=== PATIENT | female | born 1975 | race Caucasian/White ===

== ENCOUNTER 2017-04-24 09:49 | Outpatient (RCR) | payer MEDICAID, SELFPAY ==
[2017-04-24 10:06] VITALS: BP 112/77; PULSE 87; RESP 18; TEMP 36.6; BMI 76.8
--- NOTE | 2017-04-24 19:46 | PCM.WC.PN ---
Type of Wound Date of Service: 04/24/17 Chief Complaint: Open surgical hidradenitis wound left inguinal, pubic, and perineal area. History of Wound: Surgery 04/04/17 - Surgical preparation left inguinal, pubic, and perineal area with excision hidradenitis (250 cm2). Wound care - Silver. Operative culture - Staphylococcus lugdunensis. She was discharged on Doxycycline. Prealbumin on 04/05/17 was 18.2. Encourage nutritional supplementation with protein to help the healing process. Today the patient denies fever. Her appetite is good. Progress of Wound: Improved. - Physical Exam Vital Signs Temp Pulse Resp BP 97.9 F 87 18 112/77 04/24/17 10:06 04/24/17 10:06 04/24/17 10:06 04/24/17 10:06 Debridement Note Post-Debridement Measurements/Treatment WC - Nurse 2 - General Ulcer CM Notes Start: 04/24/17 10:05 Freq: Status: Active Protocol: Activity Type Activity Date Activity User E-Sign Co-Sign Detail Recorded Client Recorded Date Recorded By Document 04/24/17 11:08 [id number] 04/24/17 11:09 04/24/17 11:08 Wound Center Nurse 2 #1 L Groin/Periarea -Time 11:08 -Correct Patient Yes -Correct Side, Site, Position Yes -Correct Procedure Yes -Procedure Performed Yes -Type of Procedure Debridement -Clinical Debridement Subcutaneous -Post Debridement Size (cm) - Length 22.5 -Post Debridement Size (cm) - Width 5.1 -Post Debridement Size (cm) - Depth 0.8 -Total Square Cm 114.75 -Wound/Ulcer Outcome Not Healed -Ulcer Cleansing Rinsed/ Irrigated with Saline -Foul Odor after Cleansing No -Bioengineered Tissue No -Cetacaine [place] No -Bleeding Controlled with Pressure -Treatment Response Procedure Tolerated Well Pain Scale: 0-10 Numeric Is Patient Pain Free? Yes Wound debrided: #1 Left inguinal, pubic, and perineal area. Laterality: Left Wound Grade/Stage: 2. Type of Debridement: Excisional debridement Anesthesia Used: 4% Lidocaine Solution Depth: Down to and including healthy tissue, in the subcutaneous layer Percentage of wound debrided: 100 Instrument Used: 5mm curette Tissue Removed: subcutaneous tissue. Severity: Fat Layer Exposed Amount of bleeding with debridement: Mild Bleeding Controlled with: Pressure Patient tolerated procedure well Assessment/Plan Assessment: 1. Bilateral inguinal hidradenitis, left worse than the right. 2. Left perineal hidradenitis. 3. Pubic area hidradenitis. 4. Open surgical hidradenitis wound left inguinal, pubic, and perineal area. 5. Smoker. 6. s/p surgical preparation left inguinal, pubic, and perineal area with excision hidradenitis (250 cm2). Plan: Continue Silver dressing changes daily. Operative culture showed Staphylococcus lugdunensis. She was discharged on Doxycycline and will continue them. Prealbumin on 04/05/17 was 18.2. Encourage nutritional supplementation with protein to help the healing process. Renewed her Percocet for pain (40 tabs). Followup 3 weeks. Encouraged the patient to stop smoking as it may have deleterious effects on wound healing.
--- NOTE | 2017-04-27 21:47 | PN.PCM_ITS ---
Type of Wound Date of Service: 04/24/17 Chief Complaint: Open surgical hidradenitis wound left inguinal, pubic, and perineal area. History of Wound: Surgery 04/04/17 - Surgical preparation left inguinal, pubic, and perineal area with excision hidradenitis (250 cm2). Wound care - Silver. Operative culture - Staphylococcus lugdunensis. She was discharged on Doxycycline. Prealbumin on 04/05/17 was 18.2. Encourage nutritional supplementation with protein to help the healing process. Today the patient denies fever. Her appetite is good. Progress of Wound: Improved. - Physical Exam Vital Signs Temp Pulse Resp BP 97.9 F 87 18 112/77 04/24/17 10:06 04/24/17 10:06 04/24/17 10:06 04/24/17 10:06 Debridement Note Post-Debridement Measurements/Treatment WC - Nurse 2 - General Ulcer CM Notes Start: 04/24/17 10:05 Freq: Status: Active Protocol: Activity Type Activity Date Activity User E-Sign Co-Sign Detail Recorded Client Recorded Date Recorded By Document 04/24/17 11:08 [id number] 04/24/17 11:09 04/24/17 11:08 Wound Center Nurse 2 #1 L Groin/Periarea -Time 11:08 -Correct Patient Yes -Correct Side, Site, Position Yes -Correct Procedure Yes -Procedure Performed Yes -Type of Procedure Debridement -Clinical Debridement Subcutaneous -Post Debridement Size (cm) - Length 22.5 -Post Debridement Size (cm) - Width 5.1 -Post Debridement Size (cm) - Depth 0.8 -Total Square Cm 114.75 -Wound/Ulcer Outcome Not Healed -Ulcer Cleansing Rinsed/ Irrigated with Saline -Foul Odor after Cleansing No -Bioengineered Tissue No -Cetacaine [place] No -Bleeding Controlled with Pressure -Treatment Response Procedure Tolerated Well Pain Scale: 0-10 Numeric Is Patient Pain Free? Yes Wound debrided: #1 Left inguinal, pubic, and perineal area. Laterality: Left Wound Grade/Stage: 2. Type of Debridement: Excisional debridement Anesthesia Used: 4% Lidocaine Solution Depth: Down to and including healthy tissue, in the subcutaneous layer Percentage of wound debrided: 100 Instrument Used: 5mm curette Tissue Removed: subcutaneous tissue. Severity: Fat Layer Exposed Amount of bleeding with debridement: Mild Bleeding Controlled with: Pressure Patient tolerated procedure well Assessment/Plan Assessment: 1. Bilateral inguinal hidradenitis, left worse than the right. 2. Left perineal hidradenitis. 3. Pubic area hidradenitis. 4. Open surgical hidradenitis wound left inguinal, pubic, and perineal area. 5. Smoker. 6. s/ p surgical preparation left inguinal, pubic, and perineal area with excision hidradenitis (250 cm2). Plan: Continue Silver dressing changes daily. Operative culture showed Staphylococcus lugdunensis. She was discharged on Doxycycline and will continue them. Prealbumin on 04/05/17 was 18.2. Encourage nutritional supplementation with protein to help the healing process. Renewed her Percocet for pain (40 tabs). Followup 3 weeks. Encouraged the patient to stop smoking as it may have deleterious effects on wound healing.
== END 2017-04-26 23:59 ==
LOC: WC 09:49
PROVIDERS: Family Provider Internal Medicine; Visit Provider Surgery
DX: L73.2 Hidradenitis suppurativa (principal); F17.200 Nicotine dependence, unspecified, uncomplicated; S31.104A Unspecified open wound of abdominal wall, left lower quadrant without penetration into peritoneal cavity, initial encounter; Y83.8 Other surgical procedures as the cause of abnormal reaction of the patient, or of later complication, without mention of misadventure at the time of the procedure
CPT/HCPCS: 11042; 11045; 99213; G0463

== ENCOUNTER 2017-05-15 10:11 | Outpatient (RCR) | payer MEDICAID, SELFPAY ==
[2017-04-24 10:06] VITALS: BP 112/77
[2017-04-27 01:06] VITALS: PULSE 87; RESP 18; TEMP 36.6
[2017-05-15 10:59] VITALS: BP 121/85; PULSE 82; RESP 20; TEMP 36.6; BMI 76.8
--- NOTE | 2017-05-15 19:21 | PN.PCM_ITS ---
Type of Wound Date of Service: 05/15/17 Chief Complaint: Nonhealing hidradenitis ulcer left inguinal, pubic, and perineal area. History of Wound: Surgery 04/04/17 - Surgical preparation left inguinal, pubic, and perineal area with excision hidradenitis (250 cm2). Wound care - Silver. Operative culture - Staphylococcus lugdunensis. She was discharged on Doxycycline. Prealbumin on 04/05/17 was 18.2. Encourage nutritional supplementation with protein to help the healing process. Today the patient denies fever. Her appetite is good. Progress of Wound: Improved. - Physical Exam Vital Signs Temp Pulse Resp BP 97.8 F 82 20 H 121/85 H 05/15/17 10:59 05/15/17 10:59 05/15/17 10:59 05/15/17 10:59 Wound Measurements and Assessment WC - Nurse 1 - General Ulcer Measurement Start: 05/15/17 10:57 Freq: Status: Active Protocol: Activity Type Activity Date Activity User E-Sign Co-Sign Detail Recorded Client Recorded Date Recorded By Document 05/15/17 10:59 DL [id number] 05/15/17 11:08 DL 05/15/17 10:59 Wound Center Nurse 1 [Ulcer Assessment] #1 L Groin/Periarea -Current Size (cm) - Length 18 -Current Size (cm) - Width 2.1 -Current Size (cm) - Depth 0.1 -Total Square Cm 37.8 -Photo Taken No -Epithelialization Large 67-100% -Exudate Amt Small (1-33%) -Exudate Type Serosanguineous -Wound Margin Distinct, Outline Attached -Granulation Amt Large (67-100%) -Granulation Quality [place] Red -Necrosis Amt Small (1-33%) -Necrotic Tissue Type Adherent Slough -Structure Exposed N/A -Texture (Eulalia-wound Skin Appearance) Scarring -Moisture (Eulalia-wound Skin Appearance No Abnormality ) -Color (Eulalia-wound Skin Appearance) No Abnormality -Temperature (Eulalia-wound Skin No Abnormality Appearance) (Pt Warm) -Tenderness on Palpation (Eulalia-wound No Skin Appearance) -Ulcer Cleansing Wound Cleanser -Foul Odor after Cleansing No -Anesthetic Used 4% Lidocaine Solution WC - Nurse 2 - General Ulcer CM Notes Start: 05/15/17 10:57 Freq: Status: Active Protocol: Activity Type Activity Date Activity User E-Sign Co-Sign Detail Recorded Client Recorded Date Recorded By Document 05/15/17 11:15 [id number] 05/15/17 11:16 05/15/17 11:15 Wound Center Nurse 2 [Procedure/Treatment] -Time 11:16 -Correct Patient Yes -Correct Side, Site, Position Yes -Correct Procedure Yes -Procedure Performed Yes -Type of Procedure Debridement -Clinical Debridement Subcutaneous -Post Debridement Size (cm) - Length 18.2 -Post Debridement Size (cm) - Width 2.2 -Post Debridement Size (cm) - Depth 0.1 -Total Square Cm 40.04 -Wound/Ulcer Outcome Not Healed -Ulcer Cleansing Rinsed/ Irrigated with Saline -Foul Odor after Cleansing No -Bioengineered Tissue No -Bleeding Controlled with Pressure -Treatment Response Procedure Tolerated Well [See Physician Procedure note for Specifics] Pain Scale: 0-10 Numeric [Pain] -Is Patient Pain Free? Yes Debridement Note Post-Debridement Measurements/Treatment WC - Nurse 2 - General Ulcer CM Notes Start: 05/15/17 10:57 Freq: Status: Active Protocol: Activity Type Activity Date Activity User E-Sign Co-Sign Detail Recorded Client Recorded Date Recorded By Document 05/15/17 11:15 [id number] 05/15/17 11:16 05/15/17 11:15 Wound Center Nurse 2 #1 L Groin/Periarea -Time 11:16 -Correct Patient Yes -Correct Side, Site, Position Yes -Correct Procedure Yes -Procedure Performed Yes -Type of Procedure Debridement -Clinical Debridement Subcutaneous -Post Debridement Size (cm) - Length 18.2 -Post Debridement Size (cm) - Width 2.2 -Post Debridement Size (cm) - Depth 0.1 -Total Square Cm 40.04 -Wound/Ulcer Outcome Not Healed -Ulcer Cleansing Rinsed/ Irrigated with Saline -Foul Odor after Cleansing No -Bioengineered Tissue No -Bleeding Controlled with Pressure -Treatment Response Procedure Tolerated Well Pain Scale: 0-10 Numeric Is Patient Pain Free? Yes Wound debrided: #1 Left inguinal, pubic, and perineal area. Laterality: Left Wound Grade/Stage: 2. Type of Debridement: Excisional debridement Anesthesia Used: 4% Lidocaine Solution Depth: Down to and including healthy tissue, in the subcutaneous layer Percentage of wound debrided: 100 Instrument Used: 5mm curette Tissue Removed: subcutaneous tissue. Severity: Fat Layer Exposed Amount of bleeding with debridement: Mild Bleeding Controlled with: Pressure Patient tolerated procedure well Assessment/Plan Assessment: 1. Bilateral inguinal hidradenitis, left worse than the right. 2. Left perineal hidradenitis. 3. Pubic area hidradenitis. 4. Nonhealing hidradenitis ulcer left inguinal, pubic, and perineal area. 5. Smoker. 6. s/ p surgical preparation left inguinal, pubic, and perineal area with excision hidradenitis (250 cm2). Plan: Continue Silver dressing changes daily. Operative culture showed Staphylococcus lugdunensis. She was discharged on Doxycycline and will continue them. Prealbumin on 04/05/17 was 18.2. Encourage nutritional supplementation with protein to help the healing process. Renewed her Percocet for pain, one tab (30 tabs). Followup 3 weeks. Encouraged the patient to stop smoking as it may have deleterious effects on wound healing.
== END 2017-05-24 23:59 ==
LOC: WC 10:11
PROVIDERS: Family Provider Internal Medicine; Visit Provider Surgery
DX: L73.2 Hidradenitis suppurativa (principal); F17.200 Nicotine dependence, unspecified, uncomplicated; L98.492 Non-pressure chronic ulcer of skin of other sites with fat layer exposed
CPT/HCPCS: 11042; 11045

== ENCOUNTER 2017-06-06 11:46 | Outpatient (RCR) | payer MEDICAID, SELFPAY ==
[2017-05-25 00:51] VITALS: BP 112/77; PULSE 82; RESP 20; TEMP 36.6; BMI 76.8
[2017-06-06 15:14] VITALS: BP 145/87; PULSE 84; RESP 18; TEMP 36.7; BMI 76.8
--- NOTE | 2017-06-06 22:15 | PN.PCM_ITS ---
Type of Wound Date of Service: 06/06/17 Chief Complaint: Nonhealing hidradenitis ulcer left inguinal, pubic, and perineal area. History of Wound: Surgery 04/04/17 - Surgical preparation left inguinal, pubic, and perineal area with excision hidradenitis (250 cm2). Wound care - Silver. Operative culture - Staphylococcus lugdunensis. She was discharged on Doxycycline and has finished them. Prealbumin on 04/05/17 was 18.2. Encourage nutritional supplementation with protein to help the healing process. Today the patient denies fever. Her appetite is good. She does complain of persistent soreness in the healing ulcer. Progress of Wound: Improved. - Physical Exam Vital Signs Temp Pulse Resp BP 98.0 F 84 18 145/87 H 06/06/17 15:14 06/06/17 15:14 06/06/17 15:14 06/06/17 15:14 Wound Measurements and Assessment WC - Nurse 1 - General Ulcer Measurement Start: 06/06/17 15:14 Freq: Status: Active Protocol: Activity Type Activity Date Activity User E-Sign Co-Sign Detail Recorded Client Recorded Date Recorded By Document 06/06/17 15:14 [id number] 06/06/17 15:16 TM 06/06/17 15:14 Wound Center Nurse 1 [Ulcer Assessment] #1 L Groin/Periarea -Combined with other wound No -Current Size (cm) - Length 2.8 -Current Size (cm) - Width 1.8 -Current Size (cm) - Depth 0.1 -Total Square Cm 5.04 -Date of Last Picture (Recall this 06/06/17 field) -Photo Taken Yes -Epithelialization Large 67-100% -Tunneling No -Undermining/Tunneling No -Circular Undermining No -Classification - Thickness Full Thickness without Exposed Support Structure -Exudate Amt Small (1-33%) -Exudate Type Serosanguineous -Wound Margin Distinct, Outline Attached -Granulation Amt Large (67-100%) -Granulation Quality Red -Slough/Fibrin Yes -Necrosis Amt Small (1-33%) -Necrotic Tissue Type Adherent Slough -Structure Exposed Fascia Fat Layer Exposed -Texture (Eul[place]-wound Skin Appearance) Scarring -Moisture ([place]-wound Skin Appearance No Abnormality ) -Color (Eulalia-wound Skin Appearance) Erythema -Temperature ([place]-wound Skin No Abnormality Appearance) (Pt Warm) -Tenderness on Palpation ([place]-wound No Skin Appearance) -Ulcer Cleansing Rinsed/ Irrigated with Saline -Foul Odor after Cleansing No -Anesthetic Used 5% Lidocaine Gel [Edema Assessment] -Lower Limb Edema Present No WC - Nurse 2 - General Ulcer CM Notes Start: 06/06/17 15:14 Freq: Status: Active Protocol: Activity Type Activity Date Activity User E-Sign Co-Sign Detail Recorded Client Recorded Date Recorded By Document 06/06/17 15:35 [id number] 06/06/17 15:36 06/06/17 15:35 Wound Center Nurse 2 [Procedure/Treatment] #1 L Groin/Periarea -Time 15:35 -Correct Patient Yes -Correct Side, Site, Position Yes -Correct Procedure Yes -Procedure Performed Yes -Type of Procedure Debridement -Clinical Debridement Subcutaneous -Post Debridement Size (cm) - Length 2.8 -Post Debridement Size (cm) - Width 1.9 -Post Debridement Size (cm) - Depth 0.1 -Total Square Cm 5.32 -Wound/Ulcer Outcome Not Healed -Ulcer Cleansing Rinsed/ Irrigated with Saline -Foul Odor after Cleansing No -Bioengineered Tissue No -Bleeding Controlled with Pressure -Treatment Response Procedure Tolerated Well [See Physician Procedure note for Specifics] Pain Scale: 0-10 Numeric [Pain] -Is Patient Pain Free? Yes Debridement Note Post-Debridement Measurements/Treatment WC - Nurse 2 - General Ulcer CM Notes Start: 06/06/17 15:14 Freq: Status: Active Protocol: Activity Type Activity Date Activity User E-Sign Co-Sign Detail Recorded Client Recorded Date Recorded By Document 06/06/17 15:35 [id number] 06/06/17 15:36 06/06/17 15:35 Wound Center Nurse 2 #1 L Groin/Periarea -Time 15:35 -Correct Patient Yes -Correct Side, Site, Position Yes -Correct Procedure Yes -Procedure Performed Yes -Type of Procedure Debridement -Clinical Debridement Subcutaneous -Post Debridement Size (cm) - Length 2.8 -Post Debridement Size (cm) - Width 1.9 -Post Debridement Size (cm) - Depth 0.1 -Total Square Cm 5.32 -Wound/Ulcer Outcome Not Healed -Ulcer Cleansing Rinsed/ Irrigated with Saline -Foul Odor after Cleansing No -Bioengineered Tissue No -Bleeding Controlled with Pressure -Treatment Response Procedure Tolerated Well Pain Scale: 0-10 Numeric Is Patient Pain Free? Yes Wound debrided: #1 Left inguinal, pubic, and perineal areas. Laterality: Left Wound Grade/Stage: 2. Type of Debridement: Excisional debridement Anesthesia Used: 4% Lidocaine Solution Depth: Down to and including healthy tissue, in the subcutaneous layer Percentage of wound debrided: 100 Instrument Used: 5mm curette Tissue Removed: subcutaneous tissue. Severity: Fat Layer Exposed Amount of bleeding with debridement: Mild Bleeding Controlled with: Pressure Patient tolerated procedure well Assessment/Plan Assessment: 1. Bilateral inguinal hidradenitis, left worse than the right. 2. Left perineal hidradenitis. 3. Pubic area hidradenitis. 4. Nonhealing hidradenitis ulcer left inguinal, pubic, and perineal area. 5. Smoker. 6. s/ p surgical preparation left inguinal, pubic, and perineal area with excision hidradenitis (250 cm2). Plan: Will stop the Silver dressing changes daily and change to Fibracol. Operative culture showed Staphylococcus lugdunensis. She was discharged on Doxycycline and has finished them. Prealbumin on 04/05/17 was 18.2. Encourage nutritional supplementation with protein to help the healing process. Followup 3 weeks. Encouraged the patient to stop smoking as it may have deleterious effects on wound healing. Because of her persistent soreness, recommended further operative debridement and skin grafting. She is interested and will schedule the surgery.
== END 2017-06-24 23:59 ==
LOC: WC 11:46
PROVIDERS: Family Provider Internal Medicine; Visit Provider Surgery
DX: L73.2 Hidradenitis suppurativa (principal); L98.492 Non-pressure chronic ulcer of skin of other sites with fat layer exposed; F17.200 Nicotine dependence, unspecified, uncomplicated
CPT/HCPCS: 11042

== ENCOUNTER 2017-06-26 08:24 | Outpatient (RCR) | payer MEDICAID, SELFPAY ==
[2017-06-25 00:44] VITALS: BP 112/77; PULSE 84; RESP 18; TEMP 36.7; BMI 76.8
[2017-06-26 10:40] VITALS: BP 112/70; PULSE 67; RESP 18; TEMP 36.6; BMI 76.8
--- NOTE | 2017-06-26 17:46 | PCM.WC.PN ---
Type of Wound Date of Service: 06/26/17 Chief Complaint: Nonhealing hidradenitis ulcer left inguinal, pubic, and perineal area. History of Wound: Surgery 04/04/17 - Surgical preparation left inguinal, pubic, and perineal area with excision hidradenitis (250 cm2). Wound care - Silver. Operative culture - Staphylococcus lugdunensis. She was discharged on Doxycycline and has finished them. Prealbumin on 04/05/17 was 18.2. Encourage nutritional supplementation with protein to help the healing process. Today the patient denies fever. Her appetite is good. She states her right inguinal and vulval area has been causing her some discomfort recently. Progress of Wound: Healed. - Physical Exam Vital Signs Temp Pulse Resp BP 97.9 F 67 18 112/70 06/26/17 10:40 06/26/17 10:40 06/26/17 10:40 06/26/17 10:40 General: Alert, Oriented x3 HEENT: PERRLA, EOMI Neck: Supple Lungs: Clear to auscultation Cardiovascular: Regular rate, Regular Rhythm Abdomen: Soft, Non-Distended, - - Patient has healed scar from recent excision hidradenitis left inguinal area, and mons pubis area, and left perineal area. Has recent flareup of right inguinal hidradenitis with scarring and pain. It measures 10 cm. There is induration and chronic scarring. No evidence of fluctuance or purulent drainage. Some tenderness to palpation. Patient also has hidradenitis in the right vulval area involving the mons pubis and genitocrural area. Measures 6 cm. Has some redness and induration and tenderness to palpation. No purulent drainage. No fluctuance. Wound Measurements and Assessment WC - Nurse 1 - General Ulcer Measurement Start: 06/26/17 10:40 Freq: Status: Active Protocol: Activity Type Activity Date Activity User E-Sign Co-Sign Detail Recorded Client Recorded Date Recorded By Document 06/26/17 10:40 DL [id number] 06/26/17 10:49 DL 06/26/17 10:40 Wound Center Nurse 1 [Ulcer Assessment] #1 L Groin/Periarea -Current Size (cm) - Length 0 -Current Size (cm) - Width 0 -Current Size (cm) - Depth 0 -Total Square Cm 0 -Photo Taken Yes -Exudate Amt None Present (0 %) -Wound Margin Flat & Intact -Granulation Amt Large (67-100%) -Granulation Quality [place] -Necrosis Amt None Present (0 %) -Structure Exposed N/A -Texture ([place]ul[place]-wound Skin Appearance) Scarring -Moisture ([place]-wound Skin Appearance No Abnormality ) -Color (Eulalia-wound Skin Appearance) No Abnormality -Temperature ([place]-wound Skin No Abnormality Appearance) (Pt Warm) -Ulcer Cleansing Rinsed/ Irrigated with Saline -Foul Odor after Cleansing No WC - Nurse 2 - General Ulcer CM Notes Start: 06/26/17 10:40 Freq: Status: Active Protocol: Activity Type Activity Date Activity User E-Sign Co-Sign Detail Recorded Client Recorded Date Recorded By Document 06/26/17 11:07 [id number] 06/26/17 11:08 06/26/17 11:07 Pain Scale: 0-10 Numeric [Pain] -Is Patient Pain Free? Yes Neurological: Cranial nerves II-XII grossly intact Psych/Mental Status: Normal Affect, Appropriate Debridement Note Post-Debridement Measurements/Treatment WC - Nurse 2 - General Ulcer CM Notes Start: 06/26/17 10:40 Freq: Status: Active Protocol: Activity Type Activity Date Activity User E-Sign Co-Sign Detail Recorded Client Recorded Date Recorded By Document 06/26/17 11:07 [id number] 06/26/17 11:08 06/26/17 11:07 Pain Scale: 0-10 Numeric Is Patient Pain Free? Yes Wound debrided: #1 Left inguinal, pubic, and perineal areas. Laterality: Left Wound Grade/Stage: 2. No debridement was completed today - The ulcer has healed. Assessment/Plan Assessment: 1. Bilateral inguinal hidradenitis, left worse than the right. 2. Left perineal hidradenitis. 3. Pubic area hidradenitis. 4. Hidradenitis ulcer left inguinal, pubic, and perineal area, healed. 5. Smoker. 6. s/p surgical preparation left inguinal, pubic, and perineal area with excision hidradenitis (250 cm2). Plan: The left inguinal, pubic, and perineal ulcer has healed. She would like to proceed with surgery on the right inguinal and vulval area. She was scheduled for debridement and skin grafting for the left ulcer next week. Now that the ulcer has healed, we can still keep that date and switch the procedure to the right side. She states the right side has caused her some intermittent discomfort recently. She would like to proceed with the surgery before an acute flareup develops. However she is not sure if she wants to do it next week or wait a couple of months. She will call my office and let us know later in the week regarding possible surgery for next week. Surgery would be done under general anesthesia with a surgical observation overnight stay in the hospital. Prealbumin on 04/05/17 was 18.2. Encourage nutritional supplementation with protein to help the healing process. She states she has antibiotics for flareups in case she decides to hold off on surgery next week. Followup on an as needed basis unless she proceeds with the surgery in which case she will followup after her surgery. Encouraged the patient to stop smoking as it may have deleterious effects on wound healing.
== END 2017-07-24 23:59 ==
LOC: WC 08:24
PROVIDERS: Family Provider Internal Medicine; PCP Internal Medicine; Visit Provider Surgery
DX: Z09 Encounter for follow-up examination after completed treatment for conditions other than malignant neoplasm (principal); F17.200 Nicotine dependence, unspecified, uncomplicated; L73.2 Hidradenitis suppurativa
CPT/HCPCS: 99212; G0463

== ENCOUNTER 2017-07-04 06:21 | Day surgery (SDC) | payer MEDICAID, SELFPAY ==
--- NOTE | 2017-07-03 21:40 | PCM.HP.BLA ---
History and Physical Date of Admission: 07/04/17 HISTORY OF PRESENT ILLNESS 42-year-old woman who initially presented with long-standing history of hidradenitis involving bilateral inguinal area, pubic area and left perineal area. When she will get an attack she would just apply warm compresses until drainage occurred. She would occasionally take antibiotics. She denies any fever. Denies any trauma. She had recent surgery on 04/04/17 where she underwent surgical preparation left inguinal, pubic, and perineal area with excision hidradenitis (250 cm2). Denies any recent drainage. She presents at this time for further evaluation and treatment regarding her right inguinal and medial thigh hidradenitis with extension into the mons pubis and genitocrural area. PAST MEDICAL HISTORY Allergies Back Problems Breast Lump/Cyst anxiety headaches inguinal hidradenitis vulval hidradenitis involving mons pubic and genitocrural area PAST SURGICAL HISTORY Surgical preparation left inguinal, pubic, and perineal area with excision hidradenitis (250 cm2) - 04/04/17 FAMILY HISTORY negative for skin cancer. positive for breast cancer. Mother (biol.) - Has Family History of Alcoholism Mother (biol.) - Has Family History of Anxiety Mother (biol.) - Has Family History of Defects Mother (biol.) - Has Family History of Breast Cancer Aunt - Has Family History of Cervical Cancer Aunt - Has Family History of Ovarian Cancer SOCIAL HISTORY Passive smoke exposure - yes Alcohol Use - yes Drug Use - no patient smokes. MEDICATIONS Ibuprofen as needed ALLERGIES None REVIEW OF SYSTEMS General-denies fever, and weight loss. Has some fatigue. Ear nose and throat-denies nasal congestion. Denies sore throat. Eyes-denies cataracts. Denies glaucoma. Endocrine-has excessive thirst and urination. Has heat and cold intolerance. Skin-has long-standing hidradenitis in her right inguinal and medial thigh area and vulval area involving the pubic area and genitocrural area. Had recent excision hidradenitis in the left inguinal area and mons pubis area and left perineal area on 04/04/17. Muscular skeletal-has joint pain, joint stiffness, weakness of muscles and joints, back pain. Denies arthritis. Neurologic has headaches. Cardiovascular-has some chest pain. Has some fatigue. Denies shortness of breath with exertion. Psychiatric-has some anxiety. Denies depression. Respiratory-denies chronic cough. Has shortness of breath. Patient is a smoker. Gastrointestinal-denies nausea and vomiting. Has some diarrhea and constipation. Hematologic-denies abnormal bruising and bleeding. Genitourinary-denies hematuria. Has urinary frequency. PHYSICAL EXAMINATION General-well developed, well nourished, in no acute distress. HEENT-pupils equal round and reactive to light. Extraocular muscles intact. Throat is clear. Neck-supple nontender. No cervical adenopathy. Lungs-clear to auscultation. Heart-regular rate and rhythm. Abdomen-soft and nondistended. Patient has healed scar from recent excision hidradenitis left inguinal area, and mons pubis area, and left perineal area. Has recent flareup of right inguinal and medial thigh hidradenitis with scarring and pain. It measures 10 cm. There is induration and chronic scarring. No evidence of fluctuance or purulent drainage. Some tenderness to palpation. Patient also has hidradenitis in the right vulval area involving the mons pubis and genitocrural area. Measures 6 cm. Has some redness and induration and tenderness to palpation. No purulent drainage. No fluctuance. Extremities-full range of motion. No axillary adenopathy. Unable to assess inguinal adenopathy secondary to her bilateral inguinal hidradenitis. Neuro--cranial nerves II through XII grossly intact. Psych-normal mood and affect. ASSESSMENT 1. Right inguinal and medial thigh hidradenitis. 2. Right vulval hidradenitis involving the mons pubis and genitocrural area. 3. s/p excision hidradenitis left inguinal area, mons pubis, and perineal area. 4. Smoker. PLAN Her left inguinal and mons pubis area hidradenitis wound has healed. She states the right side is painful and she wants to proceed with excision of right inguinal and medial thigh hidradenitis and right vulval hidradenitis involving the mons pubis and genitocrural area. We will extend the excision usually down to the muscle if necessary. We will send the specimen to pathology for analysis to rule out carcinoma. Also sent some tissue to microbiology for culture. If the cultures are positive then patient will need antibiotic therapy post discharge. Depending on the extent of the excision, sometimes I have the patient go home with a Hernandez catheter. Initially we leave the wound open and proceed with postoperative wound care with the VAC or with daily dressing changes with a silver type dressing. Post discharge she will follow-up at the wound center. Surgery would be done under general anesthesia with a surgical observation overnight stay. The patient was informed of the risks and complications of the procedure including alternatives to surgery. These were discussed with the patient personally. The patient voices understanding and wishes to proceed. Encouraged the patient to stop smoking as it may have deleterious effects on wound healing.
[2017-07-04] VITALS (11 sets, daily range): BP systolic 90–123; BP diastolic 54–106; PULSE 45–86; RESP 14–18; TEMP 35.9–36.7; O2SAT 90–98; BMI 34.0
--- NOTE | 2017-07-04 08:00 | HID_PTH ---
PATIENT: ИВАН DE LA VEGA LOC: [facility] [place] U#:[id number] AGE/SX: 42/F ROOM: RE07/04/[address]: Dr. Zacarias Patel MD : 1975 BED: DIS: 07/05/2017 SPEC #: [id number] RECD: 07/04/17 10:56 STATUS: ENRRIQUE CARIE #: [id number] JESSA: 07/04/17 08:[address]: Zacarias Patel DEPT: SURGICAL PATHOLOGY RECD BY: Mariah Hardwick ENTERED: 07/04/17 12:39 SP TYPE: Hidradenit MAGUI DR: Dr. Tiki Allison MD Tissues: Vulva, NOS Procedures: Surgery Specimen Level III HEADER OPERATION: Excision, hidradenitis, right inguinal area PRE-OP DIAGNOSIS: Right inguinal and vulvar hidradenitis TISSUE SUBMITTED: Hidradenitis right groin and vulva MICROSCOPIC DIAGNOSIS Skin and soft tissue of groin and vulva, excision: Consistent with hidradenitis. AM:lara 07/05/17 MICROSCOPIC DESCRIPTION Slides are reviewed. GROSS DESCRIPTION Received in fixative is one container labeled with the patient's name and designated right groin and vulvar hidradenitis. The specimen consists of an irregular fragment of pink-miles skin measuring 22 x 7 cm and excised to a depth of 3 cm. No cutaneous lesions are identified. Sections reveal homogenous yellow cut surfaces. No mass lesion is identified. Dishtank Operator sections are submitted in three cassettes. / AM:lara 07/04/17 TC:3 CPT: 07140
[2017-07-04] MEDS: Cefazolin 2 GM in 0.9% Normal Saline 100 ML IV (08:30)
--- NOTE | 2017-07-04 09:11 | OP.PN_ITS ---
Immediate Post-Op Note Date of Procedure: 07/04/17 Primary Surgeon/Physician: Zacarias Patel instructional services specialist: None Pre-Operative Diagnosis: 1. Right inguinal and medial thigh hidradenitis. 2. Right vulval hidradenitis involving the mons pubis and genitocrural area. 3. s /p excision hidradenitis left inguinal area, mons pubis, and perineal area. 4. Smoker. Post-Operative Diagnosis: Same. Surgery/Procedure Performed:: 1. Surgical preparation right inguinal area and medial thigh area with excision hidradenitis (345 cm2). 2. Excision hidradenitis right vulval area (involving mons pubis and genitocrural area) with partial vulvectomy including deep subcutaneous tissue. Description of Surgical Findings:: 42-year-old woman who initially presented with long-standing history of hidradenitis involving bilateral inguinal area, pubic area and left perineal area. When she will get an attack she would just apply warm compresses until drainage occurred. She would occasionally take antibiotics. She denies any fever. Denies any trauma. She had recent surgery on 04/04/17 where she underwent surgical preparation left inguinal, pubic, and perineal area with excision hidradenitis (250 cm2). Denies any recent drainage. She presents at this time for further evaluation and treatment regarding her right inguinal and medial thigh hidradenitis with extension into the mons pubis and genitocrural area. Today the patient underwent surgical preparation right inguinal area and medial thigh area with excision hidradenitis (345 cm2) and excision hidradenitis right vulval area (involving mons pubis and genitocrural area) with partial vulvectomy including deep subcutaneous tissue. Size of defect right inguinal and medial thigh and vulval area - 23 x 15 x 3 cm. Estimated Blood Loss: 25 ml. Specimen's removed: Right inguinal and medial thigh and vulval hidradenitis to Pathology and Microbiology. Drains: None. Type of Anesthesia:: General - Admit VTE Documentation VTE Present on Admission: No VTE Mechan Device Prophylaxis: SCD's VTE Pharm Prophylaxis ordered?: No
[2017-07-04] MEDS: Fluconazole 100 MG Tablet PO (11:10)
[2017-07-04] MEDS: Docusate Sodium 100 MG Capsule PO ×2 (11:10→21:24)
[2017-07-04] MEDS: Lactated Ringers 1,000 ML 60 ML IV ×2 (11:10→17:42)
[2017-07-04] MEDS: Cefazolin 1 GM/50 ML BAG IV ×2 (14:07→21:24)
[2017-07-04] MEDS: HYDROmorphone 1 MG/ML Syringe IV (15:23)
[2017-07-04] MEDS: Ondansetron 4 MG/2 ML Vial IV (15:23)
[2017-07-04] MEDS: oxyCODONE 5 MG Tablet 10 MG PO (20:17)
--- NOTE | 2017-07-04 20:41 | OP.PCM_ITS ---
Report of Operation Pre-Operative Diagnosis: 1. Right inguinal and medial thigh hidradenitis. 2. Right vulval hidradenitis involving the mons pubis and genitocrural area. 3. s /p excision hidradenitis left inguinal area, mons pubis, and perineal area. 4. Smoker. Post-Operative Diagnosis: Same. Surgery/Procedure Performed:: 1. Surgical preparation right inguinal area and medial thigh area with excision hidradenitis (345 cm2). 2. Excision hidradenitis right vulval area (involving mons pubis and genitocrural area) with partial vulvectomy including deep subcutaneous tissue. Description of Surgical Findings:: 42-year-old woman who initially presented with long-standing history of hidradenitis involving bilateral inguinal area, pubic area and left perineal area. When she will get an attack she would just apply warm compresses until drainage occurred. She would occasionally take antibiotics. She denies any fever. Denies any trauma. She had recent surgery on 04/04/17 where she underwent surgical preparation left inguinal, pubic, and perineal area with excision hidradenitis (250 cm2). Denies any recent drainage. She presents at this time for further evaluation and treatment regarding her right inguinal and medial thigh hidradenitis with extension into the mons pubis and genitocrural area. The patient was informed of the risks and complications of the procedure including alternatives to surgery. These were discussed with the patient personally. The patient voices understanding and wishes to proceed. Encouraged the patient to stop smoking as it may have deleterious effects on wound healing. Size of defect right inguinal and medial thigh and vulval area - 23 x 15 x 3 cm. 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 Drains: None. Estimated Blood Loss (mL): 25 ml. Description of Procedure: Patient was taken to OR in supine position and was placed under general anesthesia. Her right inguinal and medial thigh and vulval areas were prepped and draped in the usual fashion. SCD's were placed for DVT prophylaxis. Perioperative antibiotics were given intravenously. The area of hidradenitis was marked out in the right inguinal area with extension onto the medial thigh area and into the vulval area including the mons pubis and the genitocrural area. Incision was made with a scalpel down through the subcutaneous tissue until the underlying muscular fascia was seen. There was fat necrosis present and indurated scarring indicative of chronic infection. No acute pus was noted. The mons pubis and genitocrural areas were involved with fat necrosis and indurated scarring. The right inguinal and medial thigh hidradenitis was excised. The right vulval hidradenitis was also excised from the mons pubis and the genitocrural areas with a partial vulvectomy. Hemostasis was obtained with electrocautery. The wound was irrigated with saline. Both excisions were combined into one larger wound. The dimensions of the wound after excision was 23 x 15 x 3 cm. Tissue was sent to Pathology for analysis to rule out carcinoma. Tissue was also sent to Microbiology for culture. A positive culture will necessitate antibiotic therapy. The wound was then packed with Mepitel nonadherent dressing followed by Kerlix gauze with Betadine followed by dry Kerlix gauze and ABD pads. Patient tolerated the procedure well and was sent to PACU in satisfactory condition. She will be sent upstairs for surgical observation overnight stay in the hospital. She doesn't want the VAC placed tomorrow so will change the dressing with Aquacel Silver. When she is tolerating po analgesia, then she will be discharged home. She will followup at the Wound Center. She will be sent home on antibiotics and pain medication. Grafts/Implants Used: None. - Complications None. - Admit VTE Documentation VTE Present on Admission: No VTE Mechan Device Prophylaxis: SCD's VTE Pharm Prophylaxis ordered?: No Code Visit Surgery Charges CPT - 02686 ICD-10 - L73.2, S31.103A, S31.40xA, F17.200 20631 L73.2, S31.40xA, S31.103A, F17.200
[2017-07-05 03:00] VITALS: BP 95/53; PULSE 51; RESP 16; TEMP 36.8; O2SAT 95
[2017-07-05] MEDS: Cefazolin 1 GM/50 ML BAG IV (06:23)
[2017-07-05] MEDS: HYDROmorphone 1 MG/ML Syringe IV ×2 (06:28→09:54)
[2017-07-05] MEDS: Ondansetron 4 MG/2 ML Vial IV (06:35)
[2017-07-05 07:04] LABS: Hematocrit 37.8 % (37-47); Hemoglobin 12.3 g/dl (12.0-15.0); Mean Corp Hgb Conc 32.5 g/gl (32-36); Mean Corpuscular Hgb 29.8 pg (27.0-32.0); Mean Corpuscular Volume 91.5 fL (81-99); Mean Platelet Vol. 12.3 fl (6.2-12.0); Platelet Count 161 K/mm3 (150-450); RBC Distribution Width CV 12.8 % (11.6-14.6); RBC Distribution Width SD 42.2 fl (35.1-43.9); Red Blood Count 4.13 M/mm3 (4.2-5.4); White Blood Count 14.3 K/mm3 (4.4-11.0)
[2017-07-05 07:07] LABS: Scan Indicated on CBC? Y/N NO
[2017-07-05 07:33] LABS: Anion Gap 6 (5-15); BUN 15 mg/dL (7-18); BUN/Creat Ratio 17.7 RATIO (10-20); Calcium,Total 8.5 mg/dL (8.5-10.1); Chloride 111 mmol/L (98-107); Creatinine, Serum 0.85 mg/dL (0.55-1.02); EST Glomerular Filtration Rate 78 mL/min (>60); Est Glom Filt Rate - Afr Amer 94 mL/min (>60); Estimated Creatinine Clearance 73.69 ml/min; Glucose 118 mg/dL (74-106); Potassium 4.9 mmol/L (3.5-5.1); Prealbumin 17.6 mg/dL (20.0-40.0); Sodium Level 142 mmol/L (136-145)
[2017-07-05] MEDS: Docusate Sodium 100 MG Capsule PO (08:35)
[2017-07-05] MEDS: Fluconazole 100 MG Tablet PO (08:35)
[2017-07-05 09:00] VITALS: BP 104/69; PULSE 62; RESP 16; TEMP 36.4; O2SAT 95
--- NOTE | 2017-07-05 10:07 | CASEMGMT ---
Referral received for Home Health. Per [facility] website, [facility]. Call to Kim @ [facility] . they can take pt with start of care Th18 (if dc'd today). RN will come 2x week and pt will need to have someone learn and change dressings alternate days. -Intro role of CM with pt. She is agreeable to [facility] through [facility]. RN CM notified pt that she will need to have someone learn dressing change to be done 5x week. [facility] RN will assist with teaching and change dressing 2x week. Alternate plan would be for pt to go to Dr. Patel's office/wound center. Pt will have daughter assist with dressing changes. -Seferino RN, Sudha general superintendent nurse updated re: dc plan and pt will need script for supplies on discharge. Lance CHIRINOS RN ACM
--- NOTE | 2017-07-05 10:56 | NURSING ---
wound photo: right groin
--- NOTE | 2017-07-05 13:25 | PN.SURG_ITS ---
Subjective: Postop #1 Patient is resting comfortably. - Physical Exam General: Alert, Oriented x3 HEENT: PERRLA, EOMI Neck: Supple Lungs: Clear to auscultation Cardiovascular: Regular rate, Regular Rhythm Abdomen: Soft, Non-Distended Skin: Ulcer/ Wound - right inguinal and medial thigh and vulval wounds are stable. No bleeding seen. Dressed with Aquacel Silver to be done daily. Neurological: Cranial nerves II-XII grossly intact Psych/Mental Status: Normal Affect, Appropriate Vital Signs Temp Pulse Resp BP Pulse Ox 97.6 F L 62 16 104/69 95 07/05/17 09:00 07/05/17 09:00 07/05/17 09:00 07/05/17 09:00 07/05/17 09:00 Oxygen Flow Rate (L/min) 2 Oxygen Delivery Method Room Air Weight: 198 lb 3.129 oz Body Mass Index (BMI) 34.0 Intake and Output for Last 24 Hours 07/03/17 07/04/17 07/05/17 23:59 23:59 23:59 Intake Total 2299 / 2299 1475 / 1475 Balance 2299 / 2299 1475 / 1475 Microbiology Past 72 Hours 07/04/17 09:43 Gram Stain - Final Tissue - Groin Wound Culture - Preliminary No growth-Final to follow Laboratory Tests Past 24 Hrs 07/05/17 07/05/17 06:45 06:45 WBC 14.3 H RBC 4.13 L Hgb 12.3 Hct 37.8 MCV 91.5 MCH 29.8 MCHC 32.5 RDW 12.8 RDW Differential 42.2 Plt Count 161 MPV 12.3 H Sodium 142 Potassium 4.9 Chloride 111 H Carbon Dioxide 25.0 Anion Gap 6 BUN 15 Creatinine 0.85 Estim Creat Clear Calc 73.69 Est GFR (MDRD) Af Amer 94 Est GFR (MDRD) Non-Af 78 BUN/Creatinine Ratio 17.7 Glucose 118 H Calcium 8.5 Prealbumin 17.6 L Medical Necessity - Tobacco Use Smoking Status: Current every day smoker Assessment/Plan 1. Right inguinal and medial thigh hidradenitis. 2. Right vulval hidradenitis involving the mons pubis and genitocrural area. 3. s/p excision hidradenitis left inguinal area, mons pubis, and perineal area. 4. Smoker. 5. s/p surgical preparation right inguinal area and medial thigh area with excision hidradenitis (345 cm2) and excision hidradenitis right vulval area ( involving mons pubis and genitocrural area) with partial vulvectomy including deep subcutaneous tissue. Patient tolerated the Silver dressing change with po analgesia. She is anxious to go home. She is not interested in the VAC at this time. Operative cultures are negative thus far. Will send home on Doxycycline. A positive culture may necessitate antibiotic modification. Prealbumin was 17.6. Encourage nutritional supplementation with protein to help the healing process. Followup at the Wound Center in 1-2 weeks. If there is a plateau in the healing process, can proceed with delayed closure with skin grafting. Wrote script for Doxycycline and for Diflucan and for Nystatin powder. She was developing some fungal irritation in the healed scar on the left. Wrote scripts for Percocet for pain (60 tabs) and for Valium for spasm (30 tabs) . Wrote scripts for Phenergan for nausea (30 tabs) and a refill and for Colace for constipation (60 tabs). Encouraged the patient to stop smoking as it may have deleterious effects on wound healing.
--- NOTE | 2017-07-05 13:43 | PCM.DC ---
You will use the following diet at home:: No restrictions, Other - encourage nutritional supplementation with protein to help the healing process. Discharge Activity: May not drive while taking narcotic pain medications., May Shower - at the time of the dressing change. May shower in (days): 1 - may shower at the time of the dressing change. May resume sexual activity in: 10-14 days Weight Bearing Status: Weight bearing as tolerated Call your doctor if your incision/area has: Continuous Slow Oozing, Sudden Increased Bleeding, Increased Pain/ Swelling, Increased Redness, Foul Smelling Discharge, Swelling at the incision site Call your doctor if you observe: Fever of 101 or Higher, Coldness, Increased Pain, Shortness of breath, Chest pain, Calf discomfort, Uncontrolled pain Suture Line Care: - - daily dressing changes with aquacel silver and moistened kerlix gauze. Change Dressing in (Days):: 1 - daily dressing changes. Cleanse incision/area with: Soap & Water - may cleanse the wound with soap and water at the time of the dressing change., - - may shower daily at the time of the dressing change. Allergies/Adverse Reactions: Allergies No Known Allergies Allergy (Verified 06/27/17 10:49) Medications to take at Discharge Diazepam [Valium] 5 mg PO 4X/DAY PRN #30 tab 07/05/17 Docusate Sodium [Colace] 100 mg PO BID #60 cap 07/05/17 Doxycycline [Vibramycin] 100 mg PO BID #28 cap 07/05/17 Fluconazole [Diflucan] 100 mg PO DAILY #14 tab 07/05/17 Nystatin Powder [Mycostatin Powder] 1 applic TOPICAL BID #3 bottle 07/05/17 Oxycodone HCl/Acetaminophen [Percocet 5/325] 1 - 2 tab PO .4X/DAY PRN 7 Days #60 tab 07/05/17 proMETHazine tablet [Phenergan tablet] 25 mg PO 4X/DAY PRN PRN #30 tab 07/05/17 The following prescriptions were given: Fluconazole [Diflucan] 100 mg PO DAILY #14 tab Oxycodone HCl/Acetaminophen [Percocet 5/325] 1 - 2 tab PO .4X/DAY PRN 7 Days #60 tab PRN Reason: Pain proMETHazine tablet [Phenergan tablet] 25 mg PO 4X/DAY PRN PRN #30 tab PRN Reason: NAUSEA/VOMITING Docusate Sodium [Colace] 100 mg PO BID #60 cap Doxycycline [Vibramycin] 100 mg PO BID #28 cap Nystatin Powder [Mycostatin Powder] 1 applic TOPICAL BID #3 bottle Diazepam [Valium] 5 mg PO 4X/DAY PRN #30 tab PRN Reason: Spasms Primary Care Physician: Tiki Allison MD [Primary Care Provider] - Please Follow Up With: Zacarias Patel MD When: monday07/07/17. call [phone] for appt. Proposed Discharge Date: 07/05/17
--- NOTE | 2017-07-05 13:46 | DCINST_ITS ---
You will use the following diet at home:: No restrictions, Other - encourage nutritional supplementation with protein to help the healing process. Discharge Activity: May not drive while taking narcotic pain medications., May Shower - at the time of the dressing change. May shower in (days): 1 - may shower at the time of the dressing change. May resume sexual activity in: 10-14 days Weight Bearing Status: Weight bearing as tolerated Call your doctor if your incision/area has: Continuous Slow Oozing, Sudden Increased Bleeding, Increased Pain/ Swelling, Increased Redness, Foul Smelling Discharge, Swelling at the incision site Call your doctor if you observe: Fever of 101 or Higher, Coldness, Increased Pain, Shortness of breath, Chest pain, Calf discomfort, Uncontrolled pain Suture Line Care: - - daily dressing changes with aquacel silver and moistened kerlix gauze. Change Dressing in (Days):: 1 - daily dressing changes. Cleanse incision/area with: Soap & Water - may cleanse the wound with soap and water at the time of the dressing change., - - may shower daily at the time of the dressing change. Allergies/Adverse Reactions: Allergies No Known Allergies Allergy (Verified 06/27/17 10:49) Medications to take at Discharge Diazepam [Valium] 5 mg PO 4X/DAY PRN #30 tab 07/05/17 Docusate Sodium [Colace] 100 mg PO BID #60 cap 07/05/17 Doxycycline [Vibramycin] 100 mg PO BID #28 cap 07/05/17 Fluconazole [Diflucan] 100 mg PO DAILY #14 tab 07/05/17 Nystatin Powder [Mycostatin Powder] 1 applic TOPICAL BID #3 bottle 07/05/17 Oxycodone HCl/Acetaminophen [Percocet 5/325] 1 - 2 tab PO .4X/DAY PRN 7 Days # 60 tab 07/05/17 proMETHazine tablet [Phenergan tablet] 25 mg PO 4X/DAY PRN PRN #30 tab 07/05/17 The following prescriptions were given: Fluconazole [Diflucan] 100 mg PO DAILY #14 tab Oxycodone HCl/Acetaminophen [Percocet 5/325] 1 - 2 tab PO .4X/DAY PRN 7 Days # 60 tab PRN Reason: Pain proMETHazine tablet [Phenergan tablet] 25 mg PO 4X/DAY PRN PRN #30 tab PRN Reason: NAUSEA/VOMITING Docusate Sodium [Colace] 100 mg PO BID #60 cap Doxycycline [Vibramycin] 100 mg PO BID #28 cap Nystatin Powder [Mycostatin Powder] 1 applic TOPICAL BID #3 bottle Diazepam [Valium] 5 mg PO 4X/DAY PRN #30 tab PRN Reason: Spasms Primary Care Physician: Tiki Allison MD [Primary Care Provider] - Please Follow Up With: Zacarias Patel MD When: monday07/07/17. call [phone] for appt. Proposed Discharge Date: 07/05/17
[2017-07-05 14:00] VITALS: BP 102/75; PULSE 82; RESP 16; TEMP 36.4; O2SAT 96
--- NOTE | 2017-07-05 14:58 | CASEMGMT ---
DC instructions, copy of wound supply script faxed to [facility] with dc date of today. Called, message left re: dc of today. Lance MONTEZN RN ACM
== END 2017-07-05 14:40 | disposition home or self-care (01) ==
LOC: SDC 06:22 → AC 06:29 → MS2 08:42
PROVIDERS: Family Provider Internal Medicine; PCP Internal Medicine; Visit Provider Surgery
PROC: (CPT 11462; principal; 2017-07-04 07:45)
DX: L73.2 Hidradenitis suppurativa (principal); F17.200 Nicotine dependence, unspecified, uncomplicated; Z86.2 Personal history of diseases of the blood and blood-forming organs and certain disorders involving the immune mechanism
CPT/HCPCS: 11462; 36415; 80048; 84134; 85027; 87015; 87070; 87075; 87102; 87116; 87186; 87205; 87206; 88304; J7120; J2405

== ENCOUNTER 2017-08-07 09:30 | Outpatient (RCR) | payer MEDICAID, SELFPAY ==
[2017-07-25 00:37] VITALS: BP 112/77; PULSE 67; RESP 18; TEMP 36.6; BMI 76.8
[2017-07-25 14:14] VITALS: BP 103/70; PULSE 95; RESP 18; TEMP 36.2; BMI 31.9
--- NOTE | 2017-07-25 17:43 | PCM.WC.PN ---
Type of Wound Date of Service: 07/25/17 Chief Complaint: Open surgical hidradenitis wound right inguinal and vulval area. History of Wound: Surgery 07/04/17 - 1. Surgical preparation right inguinal area and medial thigh area with excision hidradenitis (345 cm2). 2. Excision hidradenitis right vulval area (involving mons pubis and genitocrural area) with partial vulvectomy including deep subcutaneous tissue. Wound care - Aquacel Silver. Operative culture - Coag negative Staphy, Methicillin resistant. Was discharged on Doxycycline. It is resistant. Will change to Levaquin. Today she denies any fever. Her appetite is good. Progress of Wound: Recent surgery 07/04/17. - Physical Exam Vital Signs Temp Pulse Resp BP 97.1 F L 95 18 103/70 07/25/17 14:14 07/25/17 14:14 07/25/17 14:14 07/25/17 14:14 Wound Measurements and Assessment WC - Nurse 1 - General Ulcer Measurement Start: 07/25/17 14:14 Freq: Status: Active Protocol: Activity Type Activity Date Activity User E-Sign Co-Sign Detail Recorded Client Recorded Date Recorded By Document 07/25/17 14:14 [id number] 07/25/17 14:21 TM 07/25/17 14:14 Wound Center Nurse 1 [Ulcer Assessment] #2 right Groin/gaudencio area Hidradenitis -Combined with other wound No -Current Size (cm) - Length 20.0 -Current Size (cm) - Width 13.2 -Current Size (cm) - Depth 2.2 -Total Square Cm 264.00 -Date of Last Picture (Recall this 07/25/17 field) -Photo Taken Yes -Epithelialization Small 1-33% -Tunneling No -Undermining/Tunneling No -Circular Undermining No -Classification - Thickness Full Thickness without Exposed Support Structure -Exudate Amt Large (67-100%) -Exudate Type Serosanguineous -Wound Margin Distinct, Outline Attached -Granulation Amt Large (67-100%) -Granulation Quality Red -Slough/Fibrin Yes -Necrosis Amt Small (1-33%) -Necrotic Tissue Type Adherent Slough -Structure Exposed Fascia Fat Layer Exposed -Texture (Gaudencio-wound Skin Appearance) No Abnormality -Moisture (Gaudencio-wound Skin Appearance No Abnormality ) -Color (Gaudencio-wound Skin Appearance) No Abnormality -Temperature (Gaudencio-wound Skin No Abnormality Appearance) (Pt Warm) -Tenderness on Palpation (Gaudencio-wound Yes Skin Appearance) -Ulcer Cleansing hibiclens -Foul Odor after Cleansing No -Anesthetic Used 4% Lidocaine Solution [Edema Assessment] -Lower Limb Edema Present No - Nurse 2 - General Ulcer CM Notes Start: 07/25/17 14:14 Freq: Status: Active Protocol: Activity Type Activity Date Activity User E-Sign Co-Sign Detail Recorded Client Recorded Date Recorded By Document 07/25/17 14:33 [id number] 07/25/17 14:36 07/25/17 14:33 Wound Center Nurse 2 [Procedure/Treatment] #2 right Groin/gaudencio area Hidradenitis -Correct Patient No -Correct Side, Site, Position No -Correct Procedure No -Procedure Performed No -Wound/Ulcer Outcome Not Healed -Bleeding Controlled with NA [See Physician Procedure note for Specifics] Pain Scale: 0-10 Numeric [Pain] -Is Patient Pain Free? Yes Debridement Note Post-Debridement Measurements/Treatment - Nurse 2 - General Ulcer CM Notes Start: 07/25/17 14:14 Freq: Status: Active Protocol: Activity Type Activity Date Activity User E-Sign Co-Sign Detail Recorded Client Recorded Date Recorded By Document 07/25/17 14:33 [id number] 07/25/17 14:36 07/25/17 14:33 Wound Center Nurse 2 #2 right Groin/gaudencio area Hidradenitis -Correct Patient No -Correct Side, Site, Position No -Correct Procedure No -Procedure Performed No -Wound/Ulcer Outcome Not Healed -Bleeding Controlled with NA Pain Scale: 0-10 Numeric Is Patient Pain Free? Yes Wound debrided: #2 Right inguinal and vulval area. Laterality: Right Wound Grade/Stage: 2. No debridement was completed today - Patient had recent surgery on 07/04/17. Assessment/Plan Assessment: 1. Open surgical hidradenitis wound right inguinal and vulval area. 2. Right inguinal and medial thigh hidradenitis. 3. Right vulval hidradenitis involving the mons pubis and genitocrural area. 4. Smoker. 5. s/p surgical preparation right inguinal area and medial thigh area with excision hidradenitis (345 cm2) and excision hidradenitis right vulval area (involving mons pubis and genitocrural area) with partial vulvectomy including deep subcutaneous tissue. Plan: Continue Silver dressing changes daily. Will start Levaquin and stop the Doxycycline. The Coag negative Staph was Methicillin resistant and resistant to Doxycycline. Renewed her Dilaudid for pain (60 tabs). She has Valium at home. Encourage nutritional supplementation with protein to help the healing process. Followup 2 weeks. Encouraged the patient to stop smoking as it may have deleterious effects on wound healing.
--- NOTE | 2017-07-25 23:23 | PN.PCM_ITS ---
Type of Wound Date of Service: 07/25/17 Chief Complaint: Open surgical hidradenitis wound right inguinal and vulval area. History of Wound: Surgery 07/04/17 - 1. Surgical preparation right inguinal area and medial thigh area with excision hidradenitis (345 cm2). 2. Excision hidradenitis right vulval area (involving mons pubis and genitocrural area) with partial vulvectomy including deep subcutaneous tissue. Wound care - Aquacel Silver. Operative culture - Coag negative Staphy, Methicillin resistant. Was discharged on Doxycycline. It is resistant. Will change to Levaquin. Today she denies any fever. Her appetite is good. Progress of Wound: Recent surgery 07/04/17. - Physical Exam Vital Signs Temp Pulse Resp BP 97.1 F L 95 18 103/70 07/25/17 14:14 07/25/17 14:14 07/25/17 14:14 07/25/17 14:14 Wound Measurements and Assessment WC - Nurse 1 - General Ulcer Measurement Start: 07/25/17 14:14 Freq: Status: Active Protocol: Activity Type Activity Date Activity User E-Sign Co-Sign Detail Recorded Client Recorded Date Recorded By Document 07/25/17 14:14 [id number] 07/25/17 14:21 TM 07/25/17 14:14 Wound Center Nurse 1 [Ulcer Assessment] #2 right Groin/gaudencio area Hidradenitis -Combined with other wound No -Current Size (cm) - Length 20.0 -Current Size (cm) - Width 13.2 -Current Size (cm) - Depth 2.2 -Total Square Cm 264.00 -Date of Last Picture (Recall this 07/25/17 field) -Photo Taken Yes -Epithelialization Small 1-33% -Tunneling No -Undermining/Tunneling No -Circular Undermining No -Classification - Thickness Full Thickness without Exposed Support Structure -Exudate Amt Large (67-100%) -Exudate Type Serosanguineous -Wound Margin Distinct, Outline Attached -Granulation Amt Large (67-100%) -Granulation Quality Red -Slough/Fibrin Yes -Necrosis Amt Small (1-33%) -Necrotic Tissue Type Adherent Slough -Structure Exposed Fascia Fat Layer Exposed -Texture (Gaudencio-wound Skin Appearance) No Abnormality -Moisture (Gaudencio-wound Skin Appearance No Abnormality ) -Color (Gaudencio-wound Skin Appearance) No Abnormality -Temperature (Gaudencio-wound Skin No Abnormality Appearance) (Pt Warm) -Tenderness on Palpation (Gaudencio-wound Yes Skin Appearance) -Ulcer Cleansing hibiclens -Foul Odor after Cleansing No -Anesthetic Used 4% Lidocaine Solution [Edema Assessment] -Lower Limb Edema Present No - Nurse 2 - General Ulcer CM Notes Start: 07/25/17 14:14 Freq: Status: Active Protocol: Activity Type Activity Date Activity User E-Sign Co-Sign Detail Recorded Client Recorded Date Recorded By Document 07/25/17 14:33 [id number] 07/25/17 14:36 07/25/17 14:33 Wound Center Nurse 2 [Procedure/Treatment] #2 right Groin/gaudencio area Hidradenitis -Correct Patient No -Correct Side, Site, Position No -Correct Procedure No -Procedure Performed No -Wound/Ulcer Outcome Not Healed -Bleeding Controlled with NA [See Physician Procedure note for Specifics] Pain Scale: 0-10 Numeric [Pain] -Is Patient Pain Free? Yes Debridement Note Post-Debridement Measurements/Treatment - Nurse 2 - General Ulcer CM Notes Start: 07/25/17 14:14 Freq: Status: Active Protocol: Activity Type Activity Date Activity User E-Sign Co-Sign Detail Recorded Client Recorded Date Recorded By Document 07/25/17 14:33 [id number] 07/25/17 14:36 07/25/17 14:33 Wound Center Nurse 2 #2 right Groin/gaudencio area Hidradenitis -Correct Patient No -Correct Side, Site, Position No -Correct Procedure No -Procedure Performed No -Wound/Ulcer Outcome Not Healed -Bleeding Controlled with NA Pain Scale: 0-10 Numeric Is Patient Pain Free? Yes Wound debrided: #2 Right inguinal and vulval area. Laterality: Right Wound Grade/Stage: 2. No debridement was completed today - Patient had recent surgery on 07/04/17. Assessment/Plan Assessment: 1. Open surgical hidradenitis wound right inguinal and vulval area. 2. Right inguinal and medial thigh hidradenitis. 3. Right vulval hidradenitis involving the mons pubis and genitocrural area. 4. Smoker. 5. s/ p surgical preparation right inguinal area and medial thigh area with excision hidradenitis (345 cm2) and excision hidradenitis right vulval area (involving mons pubis and genitocrural area) with partial vulvectomy including deep subcutaneous tissue. Plan: Continue Silver dressing changes daily. Will start Levaquin and stop the Doxycycline. The Coag negative Staph was Methicillin resistant and resistant to Doxycycline. Renewed her Dilaudid for pain (60 tabs). She has Valium at home. Encourage nutritional supplementation with protein to help the healing process. Followup 2 weeks. Encouraged the patient to stop smoking as it may have deleterious effects on wound healing.
[2017-08-07 09:36] VITALS: BP 101/71; PULSE 88; RESP 16; TEMP 36; BMI 31.9
--- NOTE | 2017-08-07 23:45 | PN.PCM_ITS ---
Type of Wound Date of Service: 08/07/17 Chief Complaint: Open surgical hidradenitis wound right inguinal and vulval area. History of Wound: Surgery 07/04/17 - 1. Surgical preparation right inguinal area and medial thigh area with excision hidradenitis (345 cm2). 2. Excision hidradenitis right vulval area (involving mons pubis and genitocrural area) with partial vulvectomy including deep subcutaneous tissue. Wound care - Aquacel Silver. Operative culture - Coag negative Staph, Methicillin resistant. Was discharged on Doxycycline. It is resistant. Was changed to Levaquin. Today she denies any fever. Her appetite is good. She says the pain in her wound is still bothersome. Progress of Wound: Improved. - Physical Exam Vital Signs Temp Pulse Resp BP 96.8 F L 88 16 101/71 08/07/17 09:36 08/07/17 09:36 08/07/17 09:36 08/07/17 09:36 Wound Measurements and Assessment WC - Nurse 1 - General Ulcer Measurement Start: 07/25/17 14:14 Freq: Status: Active Protocol: Activity Type Activity Date Activity User E-Sign Co-Sign Detail Recorded Client Recorded Date Recorded By Document 08/07/17 09:36 [facility] [id number] 08/07/17 09:50 [facility] 08/07/17 09:36 Wound Center Nurse 1 [Ulcer Assessment] #2 right Groin/gaudencio area Hidradenitis -Combined with other wound No -Current Size (cm) - Length 17.6 -Current Size (cm) - Width 9.5 -Current Size (cm) - Depth 0.1 -Total Square Cm 167.20 -Photo Taken No -Epithelialization Small 1-33% -Tunneling No -Undermining/Tunneling No -Circular Undermining No -Exudate Amt Large (67-100%) -Exudate Type Serous -Wound Margin Distinct, Outline Attached -Granulation Amt Large (67-100%) -Granulation Quality Red -Slough/Fibrin Yes -Necrosis Amt Small (1-33%) -Necrotic Tissue Type Adherent Slough -Texture (Gaudencio-wound Skin Appearance) Scarring -Moisture (Gaudencio-wound Skin Appearance Assessed ) -Color (Gaudencio-wound Skin Appearance) Assessed -Temperature (Gaudencio-wound Skin No Abnormality Appearance) (Pt Warm) -Tenderness on Palpation (Gaudencio-wound Yes Skin Appearance) -Ulcer Cleansing Wound Cleanser -Foul Odor after Cleansing No -Anesthetic Used 4% Lidocaine Solution - Nurse 2 - General Ulcer CM Notes Start: 07/25/17 14:14 Freq: Status: Active Protocol: Activity Type Activity Date Activity User E-Sign Co-Sign Detail Recorded Client Recorded Date Recorded By Document 08/07/17 10:04 [id number] 08/07/17 10:06 08/07/17 10:04 Wound Center Nurse 2 [Procedure/Treatment] -Time 10:06 -Correct Patient Yes -Correct Side, Site, Position Yes -Correct Procedure Yes -Procedure Performed Yes -Type of Procedure Debridement -Clinical Debridement Subcutaneous -Post Debridement Size (cm) - Length 17.7 -Post Debridement Size (cm) - Width 9.5 -Post Debridement Size (cm) - Depth 0.1 -Total Square Cm 168.15 -Wound/Ulcer Outcome Not Healed -Ulcer Cleansing Rinsed/ Irrigated with Saline -Foul Odor after Cleansing No -Bioengineered Tissue No -Bleeding Controlled with Pressure -Treatment Response Procedure Tolerated Well [See Physician Procedure note for Specifics] Pain Scale: 0-10 Numeric [Pain] -Is Patient Pain Free? Yes Debridement Note Post-Debridement Measurements/Treatment - Nurse 2 - General Ulcer CM Notes Start: 07/25/17 14:14 Freq: Status: Active Protocol: Activity Type Activity Date Activity User E-Sign Co-Sign Detail Recorded Client Recorded Date Recorded By Document 07/25/17 14:33 [id number] 07/25/17 14:36 Document 08/07/17 10:04 [id number] 08/07/17 10:06 07/25/17 08/07/17 14:33 10:04 Wound Center Nurse 2 #2 right Groin/gaudencio area Hidradenitis -Time 10:06 -Correct Patient No Yes -Correct Side, Site, Position No Yes -Correct Procedure No Yes -Procedure Performed No Yes -Type of Procedure Debridement -Clinical Debridement Subcutaneous -Post Debridement Size (cm) - Length 17.7 -Post Debridement Size (cm) - Width 9.5 -Post Debridement Size (cm) - Depth 0.1 -Total Square Cm 168.15 -Wound/Ulcer Outcome Not Healed Not Healed -Ulcer Cleansing Rinsed/ Irrigated with Saline -Foul Odor after Cleansing No -Bioengineered Tissue No -Bleeding Controlled with NA Pressure -Treatment Response Procedure Tolerated Well Pain Scale: 0-10 Numeric Is Patient Pain Free? Yes Yes Wound debrided: #2 Right inguinal and vulval area. Laterality: Right Wound Grade/Stage: 2. Type of Debridement: Excisional debridement Anesthesia Used: 4% Lidocaine Solution Depth: Down to and including healthy tissue, in the subcutaneous layer Percentage of wound debrided: 100 Instrument Used: 5mm curette Tissue Removed: subcutaneous tissue. Severity: Fat Layer Exposed Amount of bleeding with debridement: Mild Bleeding Controlled with: Pressure Patient tolerated procedure well Assessment/Plan Assessment: 1. Open surgical hidradenitis wound right inguinal and vulval area. 2. Right inguinal and medial thigh hidradenitis. 3. Right vulval hidradenitis involving the mons pubis and genitocrural area. 4. Smoker. 5. s/ p surgical preparation right inguinal area and medial thigh area with excision hidradenitis (345 cm2) and excision hidradenitis right vulval area (involving mons pubis and genitocrural area) with partial vulvectomy including deep subcutaneous tissue. Plan: Continue Silver dressing changes daily. Continue Levaquin for the Coag negative Staph which was Methicillin resistant and resistant to Doxycycline. Encourage nutritional supplementation with protein to help the healing process. Discussed possible skin grafting because of her continued wound pain. She is interested in the surgery. Followup 2 weeks. Encouraged the patient to stop smoking as it may have deleterious effects on wound healing.
== END 2017-08-24 23:59 ==
LOC: WC 09:30
PROVIDERS: Family Provider Internal Medicine; PCP Internal Medicine; Visit Provider Surgery
DX: L73.2 Hidradenitis suppurativa (principal); F17.200 Nicotine dependence, unspecified, uncomplicated
CPT/HCPCS: 11042; 11045; 99214; G0463

== ENCOUNTER 2017-08-28 15:58 | Outpatient (RCR) | payer MEDICAID, SELFPAY ==
[2017-08-25 00:35] VITALS: BP 112/77; PULSE 88; RESP 16; TEMP 36; BMI 76.8
== END 2017-09-23 23:59 ==
LOC: WC 15:58
PROVIDERS: Family Provider Internal Medicine; PCP Internal Medicine; Visit Provider Surgery
DX: L98.491 Non-pressure chronic ulcer of skin of other sites limited to breakdown of skin (principal)
CPT/HCPCS: 11042; 11045

== ENCOUNTER 2017-10-03 10:02 | Day surgery (SDC) | payer MEDICAID, SELFPAY ==
--- NOTE | 2017-10-02 23:19 | PCM.HP.BLA ---
History and Physical Date of Admission: 10/03/17 HISTORY OF PRESENT ILLNESS 42-year-old woman who initially presented with long-standing history of hidradenitis involving bilateral inguinal area, pubic area and left perineal area. When she will get an attack she would just apply warm compresses until drainage occurred. She would occasionally take antibiotics. She denies any fever. Denies any trauma. She had surgery on 04/04/17 where she underwent surgical preparation left inguinal, pubic, and perineal area with excision hidradenitis (250 cm2). After healing has occurred, she went back to surgery for the right inguinal area and vulval area and on 07/04/17 underwent surgical preparation right inguinal area and medial thigh area with excision hidradenitis (345 cm2) and excision hidradenitis right vulval area (involving mons pubis and genitocrural area) with partial vulvectomy including deep subcutaneous tissue. Postop healing has been slow and painful. She is currently using Silver dressing changes. She had a recent wound culture on 09/25/17 and it showed Gram positive beatrice and Anaerobic cocci. Will treat her perioperatively with Levaquin and Flagyl. Because of her persistent pain, further operative debridement and skin grafting was recommended. PAST MEDICAL HISTORY Allergies Back Problems Breast Lump/Cyst anxiety headaches inguinal hidradenitis vulval hidradenitis involving mons pubic and genitocrural area PAST SURGICAL HISTORY Surgical preparation left inguinal, pubic, and perineal area with excision hidradenitis (250 cm2) - 04/04/17 Surgical preparation right inguinal area and medial thigh area with excision hidradenitis (345 cm2) and excision hidradenitis right vulval area (involving mons pubis and genitocrural area) with partial vulvectomy including deep subcutaneous tissue - 07/04/17 FAMILY HISTORY negative for skin cancer. positive for breast cancer. Mother (biol.) - Has Family History of Alcoholism Mother (biol.) - Has Family History of Anxiety Mother (biol.) - Has Family History of Defects Mother (biol.) - Has Family History of Breast Cancer Aunt - Has Family History of Cervical Cancer Aunt - Has Family History of Ovarian Cancer SOCIAL HISTORY Passive smoke exposure - yes Alcohol Use - yes Drug Use - no patient smokes. MEDICATIONS Ibuprofen as needed ALLERGIES None REVIEW OF SYSTEMS General-denies fever, and weight loss. Has some fatigue. Ear nose and throat-denies nasal congestion. Denies sore throat. Eyes-denies cataracts. Denies glaucoma. Endocrine-has excessive thirst and urination. Has heat and cold intolerance. Skin-has long-standing hidradenitis wound in her right inguinal and medial thigh area and vulval area involving the pubic area and genitocrural area. Had recent excision hidradenitis in the left inguinal area and mons pubis area and left perineal area on 04/04/17. Had recent excision hidradenitis in the right inguinal area and vulval area on 07/04/17. Muscular skeletal-has joint pain, joint stiffness, weakness of muscles and joints, back pain. Denies arthritis. Neurologic has headaches. Cardiovascular-has some chest pain. Has some fatigue. Denies shortness of breath with exertion. Psychiatric-has some anxiety. Denies depression. Respiratory-denies chronic cough. Has shortness of breath. Patient is a smoker. Gastrointestinal-denies nausea and vomiting. Has some diarrhea and constipation. Hematologic-denies abnormal bruising and bleeding. Genitourinary-denies hematuria. Has urinary frequency. PHYSICAL EXAMINATION General-well developed, well nourished, in no acute distress. HEENT-pupils equal round and reactive to light. Extraocular muscles intact. Throat is clear. Neck-supple nontender. No cervical adenopathy. Lungs-clear to auscultation. Heart-regular rate and rhythm. Abdomen-soft and nondistended. Patient has healed scar from recent excision hidradenitis left inguinal area, and mons pubis area, and left perineal area. Has healing wound from recent excision hidradenitis right inguinal and vulval area. There is induration and chronic scarring. The wound is tender to palpation. No purulent drainage. Measures 13.5 x 6.6 x 0.5 cm. Extremities-full range of motion. No axillary adenopathy. Unable to assess inguinal adenopathy secondary to her bilateral inguinal hidradenitis. Neuro--cranial nerves II through XII grossly intact. Psych-normal mood and affect. ASSESSMENT 1. Nonhealing hidradenitis ulcer right inguinal and vulval area involving the mons pubis and genitocrural area. 2. s/p excision hidradenitis right inguinal area and vulval area. 3. Smoker. PLAN Has persistent pain in her right inguinal and vulval area. Latest wound culture showed Anaerobic cocci and Gram positive beatrice. Will treat perioperatively with Levaquin and Flagyl. Recommend further operative debridement and skin grafting. Donor incision will be the abdominal wall. Will send tissue to Pathology for analysis to rule out carcinoma and to Microbiology for culture. A positive culture will necessitate antibiotic therapy. She states the right side is painful and she wants to proceed with further operative debridement and skin grafting. Surgery would be done under general anesthesia with a surgical observation overnight stay. The patient was informed of the risks and complications of the procedure including alternatives to surgery. These were discussed with the patient personally. The patient voices understanding and wishes to proceed. Encouraged the patient to stop smoking as it may have deleterious effects on wound healing.
[2017-10-03] VITALS (10 sets, daily range): BP systolic 87–109; BP diastolic 52–86; PULSE 47–73; RESP 14–16; TEMP 35.8–36.9; O2SAT 89–99; BMI 32.0; BMI 31.8
[2017-10-03] MEDS: levoFLOXacin IV 500 MG/100 ML BAG 100 MG IV (10:59)
--- NOTE | 2017-10-03 11:50 | UL_PTH ---
PATIENT: ИВАН DE LA VEGA LOC: [facility] U#:[id number] AGE/SX: 42/F ROOM: RE10/03/[address]: Dr. Zacarias Patel MD : 1975 BED: DIS: 10/04/2017 SPEC #: [id number] RECD: 10/04/17 08:56 STATUS: ENRRIQUE CARIE #: [id number] JESSA: 10/03/17 11:[address]: Zacarias Patel DEPT: SURGICAL PATHOLOGY RECD BY: Mariah Hardwick ENTERED: 10/04/17 10:35 SP TYPE: ULCER OTHR DR: No Primary Care Phys Tissues: ULCER Procedures: Surgery Specimen Level III HEADER OPERATION: Surgical preparation right inguinal and vulvar area PRE-OP DIAGNOSIS: Open surgical hidradenitis wound right inguinal and vulvar area involving the mons pubis and genitocrural area TISSUE SUBMITTED: Right inguinal and vulvar ulcer MICROSCOPIC DIAGNOSIS Right inguinal and vulvar ulcer: A piece of skin with underlying tissue with ulceration, associated acute and chronic inflammation and granulation tissue reaction. KERRI:lara 10/05/17 MICROSCOPIC DESCRIPTION Slides are reviewed. GROSS DESCRIPTION Received in fixative is one container labeled with the patient's name and designated right inguinal and vulvar ulcer. The specimen consists of an irregular piece of miles-white skin with underlying tissue measuring 15 x 4 cm and up to 4 cm in depth. The skin surface is focally the ulceration. No mass lesion is identified. Rehab Nursing Tech sections are submitted in three cassettes. / KERRI:lara 10/04/17 TC:2 CPT: 19755
[2017-10-03] MEDS: Mupirocin Ointment 22gm Tube 1 APPLIC (16:21)
--- NOTE | 2017-10-03 16:49 | PCM.IMDPSTOP ---
Immediate Post-Op Note Date of Procedure: 10/03/17 Primary Surgeon/Physician: Zacarias Patel industrial designer: Karl Martinez. Pre-Operative Diagnosis: 1. Nonhealing hidradenitis ulcer right inguinal and vulval area involving the mons pubis and genitocrural area. 2. s/p excision hidradenitis right inguinal area and vulval area. 3. Smoker. Post-Operative Diagnosis: Same. Surgery/Procedure Performed:: 1. Surgical preparation right inguinal area and vulval area (involving mons pubis and genitocrural area) with excisional debridement nonhealing hidradenitis ulcer (50 cm2). 2. Reconstruction with STSG from lateral abdominal patel (20 cm2) and secondary complex wound closure (30 cm2). Description of Surgical Findings:: 42-year-old woman who initially presented with long-standing history of hidradenitis involving bilateral inguinal area, pubic area and left perineal area. When she will get an attack she would just apply warm compresses until drainage occurred. She would occasionally take antibiotics. She denies any fever. Denies any trauma. She had surgery on 04/04/17 where she underwent surgical preparation left inguinal, pubic, and perineal area with excision hidradenitis (250 cm2). After healing has occurred, she went back to surgery for the right inguinal area and vulval area and on 07/04/17 underwent surgical preparation right inguinal area and medial thigh area with excision hidradenitis (345 cm2) and excision hidradenitis right vulval area (involving mons pubis and genitocrural area) with partial vulvectomy including deep subcutaneous tissue. Postop healing has been slow and painful. She is currently using Silver dressing changes. She had a recent wound culture on 09/25/17 and it showed Gram positive beatrice and Anaerobic cocci. Will treat her perioperatively with Levaquin and Flagyl. Because of her persistent pain, further operative debridement and skin grafting was recommended. Today the patient underwent surgical preparation right inguinal area and vulval area (involving mons pubis and genitocrural area) with excisional debridement nonhealing hidradenitis ulcer (50 cm2) and reconstruction with STSG from lateral abdominal patel (20 cm2) and secondary complex wound closure (30 cm2). I used Srinath absorbable hemostat (2 vials in abdominal wall and pubic area). Reference Number - [id number]. Lot Number - [id number]. Expiration - May 24, 2022. Reference Number - [id number]. Lot Number - [id number]. Expiration - March 23, 2022. Estimated Blood Loss: 150 ml. Specimen's removed: Nonhealing hidradenitis ulcer right inguinal area and vulval area to Pathology and Microbiology. Drains: Philippe x2. Type of Anesthesia:: General - Admit VTE Documentation VTE Present on Admission: No VTE Mechan Device Prophylaxis: SCD's VTE Pharm Prophylaxis ordered?: Yes
[2017-10-03] MEDS: Docusate Sodium 100 MG Capsule PO (20:23)
[2017-10-03] MEDS: Gabapentin 300 MG Capsule PO (20:23)
[2017-10-03] MEDS: Lactated Ringers 1,000 ML 60 ML IV (20:23)
[2017-10-03] MEDS: oxyCODONE 5 MG Tablet 10 MG PO (20:29)
[2017-10-03] MEDS: Ondansetron 4 MG/2 ML Vial IV (20:47)
--- NOTE | 2017-10-03 20:58 | PCM.OPRPT ---
Report of Operation Date of Procedure: 10/03/17 Pre-Operative Diagnosis: 1. Nonhealing hidradenitis ulcer right inguinal and vulval area involving the mons pubis and genitocrural area. 2. s/p excision hidradenitis right inguinal area and vulval area. 3. Smoker. Post-Operative Diagnosis: Same. Surgery/Procedure Performed:: 1. Surgical preparation right inguinal area and vulval area (involving mons pubis and genitocrural area) with excisional debridement nonhealing hidradenitis ulcer (50 cm2). 2. Reconstruction with STSG from lateral abdominal patel (20 cm2) and secondary complex wound closure (30 cm2). Description of Surgical Findings:: 42-year-old woman who initially presented with long-standing history of hidradenitis involving bilateral inguinal area, pubic area and left perineal area. When she will get an attack she would just apply warm compresses until drainage occurred. She would occasionally take antibiotics. She denies any fever. Denies any trauma. She had surgery on 04/04/17 where she underwent surgical preparation left inguinal, pubic, and perineal area with excision hidradenitis (250 cm2). After healing has occurred, she went back to surgery for the right inguinal area and vulval area and on 07/04/17 underwent surgical preparation right inguinal area and medial thigh area with excision hidradenitis (345 cm2) and excision hidradenitis right vulval area (involving mons pubis and genitocrural area) with partial vulvectomy including deep subcutaneous tissue. Postop healing has been slow and painful. She is currently using Silver dressing changes. She had a recent wound culture on 09/25/17 and it showed Gram positive beatrice and Anaerobic cocci. Will treat her perioperatively with Levaquin and Flagyl. Because of her persistent pain, further operative debridement and skin grafting was recommended. The patient was informed of the risks and complications of the procedure including alternatives to surgery. These were discussed with the patient personally. The patient voices understanding and wishes to proceed. Encouraged the patient to stop smoking as it may have deleterious effects on wound healing. I used Srinath absorbable hemostat (2 vials in abdominal wall and pubic area). Reference Number - [id number]. Lot Number - [id number]. Expiration - May 24, 2022. Reference Number - [id number]. Lot Number - [id number]. Expiration - March 23, 2022. auditor: Karl Martinez. Type of Anesthesia:: General Specimen's removed: Nonhealing hidradenitis ulcer right inguinal area and vulval area to Pathology and Microbiology. Drains: Philippe x2. Estimated Blood Loss (mL): 150 ml. Description of Procedure: Patient was taken to OR in supine position and was placed under general anesthesia. Her inguinal areas and vulval area and abdominal wall area were prepped and draped in the usual fashion. SCD's were placed for DVT prophylaxis. Perioperative antibiotics were given intravenously. Using xylocaine with epinephrine, the ulcers were infiltrated. The lateral abdominal wall areas were also infiltrated as these areas will be the donor areas for the skin graft. After waiting 5 minutes for the anesthetic to take effect, The I excised the nonhealing hidradenitis ulcers. I also used curettes to debride as well. This included the right inguinal and genitrocrural area and mons pubis area extending to the left side. Some of the debridement tissue was sent to Microbiology for culture and the rest was sent to Pathology for analysis to rule out carcinoma. I then excised ellipses of skin from the lateral abdominal wall areas down into the subcutaneous tissue. The subcutaneous tissue was removed from the undersurface of the dermis along with some deeper dermis thus fashioning a thick split thickness skin graft. The skin grafts were placed in saline. I excised some of the subcutaneous tissue to aid in donor site closure. After obtaining the skin for the grafting, I noticed that the lower anterior abdominal wall was incised. So instead of skin grafting an extensive area, I felt I could close the mons pubis area with advancement of the abdominal wall skin flap. This would leave the right inguinal area left for skin grafting. I elevated the abdominal wall skin flap at the level of the abdominal wall fascia up toward the umbilicus. I placed the abdominal wall skin flap on stretch and excised the sub-Scarp's subcutaneous tissue which will help to minimize fat necrosis formation. I then advanced the abdominal wall skin flap into the defect without undue tension. I had the bed elevated 30 degrees to aid in wound closure. The length of the complex secondary wound closure was about 30 cm. I did extensive undermining of the abdominal wall skin flap to aid in wound closure, about 8 cm. The size of the mons pubis wound that was closed with the abdominal wall skin flap was 10 x 3 cm or 30 cm2. The size of the skin graft needed for the right inguinal wound was 10 x 2 or 20 cm2. Before proceeding with this secondary complex wound closure, I irrigated the wound with saline. Hemostasis was obtained with electrocautery. I place two size 15 Philippe drains through separate stab wounds in the laterally on both sides of the abdominal wall area and secured to the skin with 3-0 Nylon suture. I then sprayed Srinath absorbable hemostat into the abdominal wall area to minimize seroma formation. I used two vials of Srinath. I then closed the abdominal wall wound with 2-0 Vicryl figure of eight interrupted sutures for the Ishan's fascial layer. The deep dermis and subcutaneous tissue was approximated with 3-0 Monocryl interrupted sutures. The skin was approximated with 3-0 V-lock unidirectional barbed running subcuticular suture for the lateral aspect. The central part of the closure over the mons pubis area was approximated with 3-0 Prolene vertical mattress interrupted sutures. This was followed by Histoacryl skin tissue adhesive. The thick STSG was then placed on stretch and meshed with a 15 blade. The skin graft was then placed on the hidradenitis ulcer in the right inguinal area and secured to the skin edge with 3-0 Chromic simple interrupted sutures. 3-0 Chromic interrupted sutures were used for central quilting stabilization. Mepitel nonadherent dressing was applied to the skin graft followed by antibiotic ointment and covered with cotton balls soaked in saline and secured to the skin with 3-0 Nylon tie over stent suture dressings. Kerlix gauze was used to cover the abdominal wall incision. An abdominal wall binder was then placed for support. Patient tolerated the procedure well and was sent to PACU in satisfactory condition. She will be admitted overnight for a surgical observation stay. She will go home when she is tolerating po analgesia. She will followup in [facility] on Monday for takedown of the skin graft dressing and for a wound check and to discuss the pathology report and the microbiology report. A positive culture may necessitate antibiotic modification. Grafts/Implants Used: None. - Complications None. - Admit VTE Documentation VTE Present on Admission: No VTE Mechan Device Prophylaxis: SCD's VTE Pharm Prophylaxis ordered?: Yes Code Visit Surgery Charges CPT - 34785 ICD-10 - L98.492, L73.2, F17.200 52522 L98.492, L73.2, F17.200 01218 N76.6, L73.2, F17.200 26254 N76.6, L73.2, F17.200
[2017-10-03] MEDS: HYDROmorphone 1 MG/ML Syringe IV (23:00)
[2017-10-04] MEDS: oxyCODONE 5 MG Tablet 10 MG PO ×4 (03:11→17:18)
[2017-10-04 03:14] VITALS: BP 95/42; PULSE 69; RESP 18; TEMP 36.3; O2SAT 98
[2017-10-04] MEDS: Enoxaparin 30 MG/0.3 ML Syringe SC (05:42)
[2017-10-04 07:40] LABS: Hematocrit 36.1 % (37-47); Hemoglobin 11.6 g/dl (12.0-15.0); Mean Corp Hgb Conc 32.1 g/gl (32-36); Mean Corpuscular Hgb 28.8 pg (27.0-32.0); Mean Corpuscular Volume 89.6 fL (81-99); Mean Platelet Vol. 12.8 fl (6.2-12.0); Platelet Count 139 K/mm3 (150-450); RBC Distribution Width CV 13.8 % (11.6-14.6); RBC Distribution Width SD 44.8 fl (35.1-43.9); Red Blood Count 4.03 M/mm3 (4.2-5.4); White Blood Count 19.4 K/mm3 (4.4-11.0)
[2017-10-04 07:57] LABS: Scan Indicated on CBC? Y/N NO
[2017-10-04 08:10] LABS: Anion Gap 7 (5-15); BUN 13 mg/dL (7-18); BUN/Creat Ratio 18.5 RATIO (10-20); Calcium,Total 8.5 mg/dL (8.5-10.1); Chloride 111 mmol/L (98-107); EST Glomerular Filtration Rate 97 mL/min (>60); Est Glom Filt Rate - Afr Amer 117 mL/min (>60); Estimated Creatinine Clearance 89.48 ml/min; Glucose 114 mg/dL (74-106); Potassium 4.5 mmol/L (3.5-5.1); Prealbumin 16.3 mg/dL (20.0-40.0); Sodium Level 143 mmol/L (136-145)
[2017-10-04 08:40] VITALS: BP 99/63; PULSE 69; RESP 18; TEMP 37.1; O2SAT 92
[2017-10-04] MEDS: Gabapentin 300 MG Capsule PO ×3 (08:57→17:18)
[2017-10-04] MEDS: Docusate Sodium 100 MG Capsule PO (08:57)
[2017-10-04] MEDS: levoFLOXacin IV 500 MG/100 ML BAG 100 MG IV (09:01)
[2017-10-04] MEDS: diazePAM 5 MG Tablet PO (11:13)
--- NOTE | 2017-10-04 11:20 | CPS ---
started by nursing
[2017-10-04 13:35] VITALS: BP 105/71; PULSE 70; RESP 16; TEMP 36.4; O2SAT 92
--- NOTE | 2017-10-04 14:34 | NURSING ---
Dr. Patel paged at this time regarding potential discharge today. Dr. Patel states that he plans to be in around 1600 and will discharge patient at that time.
--- NOTE | 2017-10-04 16:33 | PCM.PN.SRG ---
Patient Problems: Active and Suspected Problems Skin graft infection (Acute) compromised skin graft infection right inguinal and vulval area Partial loss of skin graft (Acute) compromised skin graft infection right inguinal and vulval area Subjective: Postop #1 Patient is resting comfortably. Tolerating po analgesia. Anxious to go home. - Physical Exam General: Alert, Oriented x3 HEENT: PERRLA, EOMI Oral: Moist Mucosa Neck: Supple Abdomen: Soft, Non-Distended, - - mild incisional tenderness noted. Extremities: No clubbing, No cyanosis, Edema - mild edema in lower extremities. Skin: Ulcer/ Wound - Skin graft dressing is dry., Incision - Abdominal wall incisions are dry and intact. No evidence of hematoma. Neurological: Cranial nerves II-XII grossly intact Psych/Mental Status: Normal Affect, Appropriate Vital Signs Temp Pulse Resp BP Pulse Ox 97.6 F L 70 16 105/71 92 10/04/17 13:35 10/04/17 13:35 10/04/17 13:35 10/04/17 13:35 10/04/17 13:35 Oxygen Flow Rate (L/min) 3 Oxygen Delivery Method Room Air Weight: 186 lb 8.177 oz Body Mass Index (BMI) 31.8 Intake and Output for Last 24 Hours 10/02/17 10/03/17 10/04/17 23:59 23:59 23:59 Intake Total 3000 / 3000 1946 / 1946 Output Total 20 / 20 1675 / 1675 Balance 2980 / 2980 271 / 271 Drainage 20 ml yesterday, 125 ml today. Microbiology Past 72 Hours 10/03/17 14:15 Gram Stain - Final Tissue - Other Wound Culture - Preliminary No growth-Final to follow Laboratory Tests Past 24 Hrs 10/04/17 10/04/17 06:56 06:56 WBC 19.4 H RBC 4.03 L Hgb 11.6 L Hct 36.1 L MCV 89.6 MCH 28.8 MCHC 32.1 RDW 13.8 RDW Differential 44.8 H Plt Count 139 L MPV 12.8 H Sodium 143 Potassium 4.5 Chloride 111 H Carbon Dioxide 25.0 Anion Gap 7 BUN 13 Creatinine 0.70 Estim Creat Clear Calc 89.48 Est GFR (MDRD) Af Amer 117 Est GFR (MDRD) Non-Af 97 BUN/Creatinine Ratio 18.5 Glucose 114 H Calcium 8.5 Prealbumin 16.3 L Medical Necessity - Tobacco Use Smoking Status: Current every day smoker Tobacco Use: Cigarettes Assessment/Plan All Active Problems Skin graft infection (Acute) Partial loss of skin graft (Acute) Non-healing open wound of right groin (Acute) Open wound of vulva (Acute) 1. Nonhealing hidradenitis ulcer right inguinal and vulval area involving the mons pubis and genitocrural area. 2. s/p excision hidradenitis right inguinal area and vulval area. 3. Smoker. 4. s/p surgical preparation right inguinal area and vulval area (involving mons pubis and genitocrural area) with excisional debridement nonhealing hidradenitis ulcer (50 cm2) and reconstruction with STSG from lateral abdominal patel (20 cm2) and secondary complex wound closure (30 cm2). Patient is tolerating po analgesia and is anxious to go home. The incisions are intact. Continue abdominal wall binder at home. Followup Monday10/09/17 at [facility] for takedown of the skin graft dressing. The pubic sutures will be removed in 2-3 weeks. The drains will be removed in 10-14 days. Operative culture negative thus far. Will send home on Levaquin and Flagyl because of preop cultures that showed Anaerobic cocci and Staphylococcus lugdunensis. Prealbumin was 16.3. Encourage nutritional supplementation with protein to help the healing process. Discharge home today. Followup at [facility] 10/09/17. Encouraged patient to stop smoking as it may have deleterious effects on wound healing.
--- NOTE | 2017-10-04 20:39 | OP.PCM_ITS ---
Report of Operation Date of Procedure: 10/03/17 Pre-Operative Diagnosis: 1. Nonhealing hidradenitis ulcer right inguinal and vulval area involving the mons pubis and genitocrural area. 2. s/p excision hidradenitis right inguinal area and vulval area. 3. Smoker. Post-Operative Diagnosis: Same. Surgery/Procedure Performed:: 1. Surgical preparation right inguinal area and vulval area (involving mons pubis and genitocrural area) with excisional debridement nonhealing hidradenitis ulcer (50 cm2). 2. Reconstruction with STSG from lateral abdominal patel (20 cm2) and secondary complex wound closure ( 30 cm2). Description of Surgical Findings:: 42-year-old woman who initially presented with long-standing history of hidradenitis involving bilateral inguinal area, pubic area and left perineal area. When she will get an attack she would just apply warm compresses until drainage occurred. She would occasionally take antibiotics. She denies any fever. Denies any trauma. She had surgery on 04/04/17 where she underwent surgical preparation left inguinal, pubic, and perineal area with excision hidradenitis (250 cm2). After healing has occurred, she went back to surgery for the right inguinal area and vulval area and on 07/04/17 underwent surgical preparation right inguinal area and medial thigh area with excision hidradenitis (345 cm2) and excision hidradenitis right vulval area (involving mons pubis and genitocrural area) with partial vulvectomy including deep subcutaneous tissue. Postop healing has been slow and painful. She is currently using Silver dressing changes. She had a recent wound culture on and it showed Gram positive beatrice and Anaerobic cocci. Will treat her perioperatively with Levaquin and Flagyl. Because of her persistent pain, further operative debridement and skin grafting was recommended. The patient was informed of the risks and complications of the procedure including alternatives to surgery. These were discussed with the patient personally. The patient voices understanding and wishes to proceed. Encouraged the patient to stop smoking as it may have deleterious effects on wound healing. I used Srinath absorbable hemostat (2 vials in abdominal wall and pubic area). Reference Number - [id number]. Lot Number - [id number]. Expiration - May 24, 2022. Reference Number - [id number]. Lot Number - [id number]. Expiration - March 23, 2022. trade promotion analyst: Karl Martinez. Type of Anesthesia:: General Specimen's removed: Nonhealing hidradenitis ulcer right inguinal area and vulval area to Pathology and Microbiology. Drains: Philippe x2. Estimated Blood Loss (mL): 150 ml. Description of Procedure: Patient was taken to OR in supine position and was placed under general anesthesia. Her inguinal areas and vulval area and abdominal wall area were prepped and draped in the usual fashion. SCD's were placed for DVT prophylaxis. Perioperative antibiotics were given intravenously. Using xylocaine with epinephrine, the ulcers were infiltrated. The lateral abdominal wall areas were also infiltrated as these areas will be the donor areas for the skin graft. After waiting 5 minutes for the anesthetic to take effect, The I excised the nonhealing hidradenitis ulcers. I also used curettes to debride as well. This included the right inguinal and genitrocrural area and mons pubis area extending to the left side. Some of the debridement tissue was sent to Microbiology for culture and the rest was sent to Pathology for analysis to rule out carcinoma. I then excised ellipses of skin from the lateral abdominal wall areas down into the subcutaneous tissue. The subcutaneous tissue was removed from the undersurface of the dermis along with some deeper dermis thus fashioning a thick split thickness skin graft. The skin grafts were placed in saline. I excised some of the subcutaneous tissue to aid in donor site closure. After obtaining the skin for the grafting, I noticed that the lower anterior abdominal wall was incised. So instead of skin grafting an extensive area, I felt I could close the mons pubis area with advancement of the abdominal wall skin flap. This would leave the right inguinal area left for skin grafting. I elevated the abdominal wall skin flap at the level of the abdominal wall fascia up toward the umbilicus. I placed the abdominal wall skin flap on stretch and excised the sub-Scarp's subcutaneous tissue which will help to minimize fat necrosis formation. I then advanced the abdominal wall skin flap into the defect without undue tension. I had the bed elevated 30 degrees to aid in wound closure. The length of the complex secondary wound closure was about 30 cm. I did extensive undermining of the abdominal wall skin flap to aid in wound closure, about 8 cm. The size of the mons pubis wound that was closed with the abdominal wall skin flap was 10 x 3 cm or 30 cm2. The size of the skin graft needed for the right inguinal wound was 10 x 2 or 20 cm2. Before proceeding with this secondary complex wound closure, I irrigated the wound with saline. Hemostasis was obtained with electrocautery. I place two size 15 Philippe drains through separate stab wounds in the laterally on both sides of the abdominal wall area and secured to the skin with 3-0 Nylon suture. I then sprayed Srinath absorbable hemostat into the abdominal wall area to minimize seroma formation. I used two vials of Srinath. I then closed the abdominal wall wound with 2-0 Vicryl figure of eight interrupted sutures for the Ishan's fascial layer. The deep dermis and subcutaneous tissue was approximated with 3-0 Monocryl interrupted sutures. The skin was approximated with 3-0 V-lock unidirectional barbed running subcuticular suture for the lateral aspect. The central part of the closure over the mons pubis area was approximated with 3-0 Prolene vertical mattress interrupted sutures. This was followed by Histoacryl skin tissue adhesive. The thick STSG was then placed on stretch and meshed with a 15 blade. The skin graft was then placed on the hidradenitis ulcer in the right inguinal area and secured to the skin edge with 3-0 Chromic simple interrupted sutures. 3-0 Chromic interrupted sutures were used for central quilting stabilization. Mepitel nonadherent dressing was applied to the skin graft followed by antibiotic ointment and covered with cotton balls soaked in saline and secured to the skin with 3-0 Nylon tie over stent suture dressings. Kerlix gauze was used to cover the abdominal wall incision. An abdominal wall binder was then placed for support. Patient tolerated the procedure well and was sent to PACU in satisfactory condition. She will be admitted overnight for a surgical observation stay. She will go home when she is tolerating po analgesia. She will followup in the Wound Center on Monday for takedown of the skin graft dressing and for a wound check and to discuss the pathology report and the microbiology report. A positive culture may necessitate antibiotic modification. Grafts/Implants Used: None. - Complications None. - Admit VTE Documentation VTE Present on Admission: No VTE Mechan Device Prophylaxis: SCD's VTE Pharm Prophylaxis ordered?: Yes Code Visit Surgery Charges CPT - 24078 ICD-10 - L98.492, L73.2, F17.200 53604 L98.492, L73.2, F17.200 62938 N76.6, L73.2, F17.200 02206 N76.6, L73.2, F17.200
== END 2017-10-04 17:35 | disposition home or self-care (01) ==
LOC: SDC 10:03 → AC 10:04 → MS2 17:29
PROVIDERS: Visit Provider Surgery
PROC: (CPT 15004; principal; 2017-10-03 11:40)
DX: N76.6 Ulceration of vulva (principal); F41.9 Anxiety disorder, unspecified; F17.210 Nicotine dependence, cigarettes, uncomplicated; Z86.2 Personal history of diseases of the blood and blood-forming organs and certain disorders involving the immune mechanism; Z79.891 Long term (current) use of opiate analgesic; Z79.899 Other long term (current) drug therapy
CPT/HCPCS: 15004; 15120; 36415; 80048; 84134; 85027; 87070; 87075; 87077; 87102; 87186; 87205; 87206; 88304; 97802; J7120; J2405

== ENCOUNTER 2017-10-09 10:00 | Outpatient (RCR) | payer MEDICAID, SELFPAY ==
[2017-09-25 09:34] VITALS: BP 105/59; PULSE 84; RESP 18; TEMP 36.4
--- NOTE | 2017-09-25 23:46 | PN.PCM_ITS ---
Type of Wound Date of Service: 09/25/17 Chief Complaint: Nonhealing hidradenitis ulcer right inguinal and vulval area. History of Wound: Surgery 07/04/17 - 1. Surgical preparation right inguinal area and medial thigh area with excision hidradenitis (345 cm2). 2. Excision hidradenitis right vulval area (involving mons pubis and genitocrural area) with partial vulvectomy including deep subcutaneous tissue. Wound care - Aquacel Silver. Operative culture - Coag negative Staph, Methicillin resistant. Was discharged on Doxycycline. It is resistant. Was changed to Levaquin. Today she denies any fever. Her appetite is good. She says the pain in her wound is still bothersome. Progress of Wound: Improved. - Physical Exam Vital Signs Temp Pulse Resp BP 97.5 F L 84 18 105/59 L 09/25/17 09:34 09/25/17 09:34 09/25/17 09:34 09/25/17 09:34 Wound Measurements and Assessment WC - Nurse 1 - General Ulcer Measurement Start: 09/25/17 09:34 Freq: Status: Active Protocol: Activity Type Activity Date Activity User E-Sign Co-Sign Detail Recorded Client Recorded Date Recorded By Document 09/25/17 09:34 [id number] 09/25/17 09:37 09/25/17 09:34 Wound Center Nurse 1 [Ulcer Assessment] #2 right Groin/gaudencio area Hidradenitis -Combined with other wound No -Current Size (cm) - Length 13.5 -Current Size (cm) - Width 6.5 -Current Size (cm) - Depth 0.5 -Total Square Cm 87.75 -Date of Last Picture (Recall this 09/25/17 field) -Photo Taken Yes -Epithelialization Small 1-33% -Tunneling No -Undermining/Tunneling No -Circular Undermining No -Classification - Thickness Full Thickness without Exposed Support Structure -Exudate Amt Large (67-100%) -Exudate Type Serosanguineous -Wound Margin Fibrotic Scar, Thickened Scar -Granulation Amt Large (67-100%) -Granulation Quality Red -Slough/Fibrin Yes -Necrosis Amt Small (1-33%) -Necrotic Tissue Type Adherent Slough -Structure Exposed Fascia Fat Layer Exposed -Texture (Gaudencio-wound Skin Appearance) Friable Localized Edema Scarring -Moisture (Gaudencio-wound Skin Appearance No Abnormality ) -Color (Gaudencio-wound Skin Appearance) Assessed Erythema -Temperature (Gaudencio-wound Skin No Abnormality Appearance) (Pt Warm) -Tenderness on Palpation (Gaudencio-wound No Skin Appearance) -Ulcer Cleansing Rinsed/ Irrigated with Saline -Foul Odor after Cleansing No -Anesthetic Used 4% Lidocaine Solution [Edema Assessment] -Lower Limb Edema Present No WC - Nurse 2 - General Ulcer CM Notes Start: 09/25/17 09:34 Freq: Status: Active Protocol: Activity Type Activity Date Activity User E-Sign Co-Sign Detail Recorded Client Recorded Date Recorded By Document 09/25/17 09:58 [email or web address] [id number] 09/25/17 09:59 SERA 09/25/17 09:58 Wound Center Nurse 2 [Procedure/Treatment] #2 right Groin/gaudencio area Hidradenitis -Time 09:58 -Correct Patient Yes -Correct Side, Site, Position Yes -Correct Procedure Yes -Procedure Performed Yes -Type of Procedure Debridement -Clinical Debridement Subcutaneous -Post Debridement Size (cm) - Length 13.5 -Post Debridement Size (cm) - Width 6.6 -Post Debridement Size (cm) - Depth 0.5 -Total Square Cm 89.10 -Wound/Ulcer Outcome Not Healed -Ulcer Cleansing Rinsed/ Irrigated with Saline -Foul Odor after Cleansing No -Bioengineered Tissue No -Bleeding Controlled with Pressure -Treatment Response Procedure Tolerated Well [See Physician Procedure note for Specifics] Pain Scale: 0-10 Numeric [Pain] -Is Patient Pain Free? Yes Debridement Note Post-Debridement Measurements/Treatment WC - Nurse 2 - General Ulcer CM Notes Start: 09/25/17 09:34 Freq: Status: Active Protocol: Activity Type Activity Date Activity User E-Sign Co-Sign Detail Recorded Client Recorded Date Recorded By Document 09/25/17 09:58 [id number] 09/25/17 09:59 SERA 09/25/17 09:58 Wound Center Nurse 2 #2 right Groin/gaudencio area Hidradenitis -Time 09:58 -Correct Patient Yes -Correct Side, Site, Position Yes -Correct Procedure Yes -Procedure Performed Yes -Type of Procedure Debridement -Clinical Debridement Subcutaneous -Post Debridement Size (cm) - Length 13.5 -Post Debridement Size (cm) - Width 6.6 -Post Debridement Size (cm) - Depth 0.5 -Total Square Cm 89.10 -Wound/Ulcer Outcome Not Healed -Ulcer Cleansing Rinsed/ Irrigated with Saline -Foul Odor after Cleansing No -Bioengineered Tissue No -Bleeding Controlled with Pressure -Treatment Response Procedure Tolerated Well Pain Scale: 0-10 Numeric Is Patient Pain Free? Yes Wound debrided: #2 Right inguinal and vulval area. Laterality: Right Wound Grade/Stage: 2. Type of Debridement: Excisional debridement Anesthesia Used: 4% Lidocaine Solution Depth: Down to and including healthy tissue, in the subcutaneous layer Percentage of wound debrided: 100 Instrument Used: 7mm curette Tissue Removed: subcutaneous tissue. Severity: Fat Layer Exposed Amount of bleeding with debridement: Mild Bleeding Controlled with: Pressure Patient tolerated procedure well - A wound culture was obtained today. Assessment/Plan Assessment: 1. Nonhealing hidradenitis ulcer right inguinal and vulval area. 2. Right inguinal and medial thigh hidradenitis. 3. Right vulval hidradenitis involving the mons pubis and genitocrural area. 4. Smoker. 5. s/ p surgical preparation right inguinal area and medial thigh area with excision hidradenitis (345 cm2) and excision hidradenitis right vulval area (involving mons pubis and genitocrural area) with partial vulvectomy including deep subcutaneous tissue. Plan: Continue Silver dressing changes daily. She has finished the Levaquin for the Coag negative Staph which was Methicillin resistant and resistant to Doxycycline. Another wound culture was done today in preparation for skin grafting when she returns from [place]. Encourage nutritional supplementation with protein to help the healing process. Followup 2 weeks. Encouraged the patient to stop smoking as it may have deleterious effects on wound healing. Tentative date for the skin graft surgery is 10/03/17 as she returns from [place] on 10/02/17. Patient was informed of the risks and complications of the procedure including alternatives to surgery. These were discussed with her personally. She voiced understanding and wishes to proceed.
--- NOTE | 2017-10-09 14:19 | PCM.WC.PN ---
Type of Wound Date of Service: 10/09/17 Chief Complaint: Nonhealing ulcer right inguinal and vulval area with recent skin grafting. History of Wound: Surgery 10/03 17 -1. Surgical preparation right inguinal area and vulval area (involving mons pubis and genitocrural area) with excisional debridement nonhealing hidradenitis ulcer (50 cm2). 2. Reconstruction with STSG from lateral abdominal patel (20 cm2) and secondary complex wound closure (30 cm2). Operative culture - Staphylococcus hominis hominis (Methicillin resistant), Corynebacterium minutissimum, and Corynebacterium amycolatum. She was treated perioperatively with Levaquin and Flagyl. Progress of Wound: Recent surgery on 10/03/17. - Physical Exam Vital Signs Temp Pulse Resp BP 97.5 F L 84 18 105/59 L 09/25/17 09:34 09/25/17 09:34 09/25/17 09:34 09/25/17 09:34 HEENT: TM's Clear - limited exam as there was a lot of wax present. From what I could see the TM's are clear. No bleeding noted. Wound Measurements and Assessment WC - Nurse 1 - General Ulcer Measurement Start: 09/25/17 09:34 Freq: Status: Active Protocol: Activity Type Activity Date Activity User E-Sign Co-Sign Detail Recorded Client Recorded Date Recorded By Document 10/09/17 10:15 [facility] [id number] 10/09/17 10:27 [facility] 10/09/17 10:15 Wound Center Nurse 1 [Ulcer Assessment] #2 right Groin/gaudencio area Hidradenitis -Combined with other wound No -Current Size (cm) - Length 0.1 -Current Size (cm) - Width 0.1 -Current Size (cm) - Depth 0.1 -Total Square Cm 0.01 -Date of Last Picture (Recall this 10/09/17 field) -Photo Taken Yes -Tunneling No -Undermining/Tunneling No -Circular Undermining No -Exudate Amt Large (67-100%) -Exudate Type Serosanguineous -Wound Margin Distinct, Outline Attached -Granulation Amt None Present (0 %) -Color (Gaudencio-wound Skin Appearance) No Abnormality Assessed -Temperature (Gaudencio-wound Skin No Abnormality Appearance) (Pt Warm) -Tenderness on Palpation (Gaudencio-wound Yes Skin Appearance) -Ulcer Cleansing Rinsed/ Irrigated with Saline -Foul Odor after Cleansing No -Anesthetic Used 5% Lidocaine Gel [Edema Assessment] -Lower Limb Edema Present NA - Nurse 2 - General Ulcer CM Notes Start: 09/25/17 09:34 Freq: Status: Active Protocol: Activity Type Activity Date Activity User E-Sign Co-Sign Detail Recorded Client Recorded Date Recorded By Document 10/09/17 11:20 [id number] 10/09/17 11:24 10/09/17 11:20 Wound Center Nurse 2 [Procedure/Treatment] #2 right Groin/gaudencio area Hidradenitis -Time 11:20 -Correct Patient Yes -Correct Side, Site, Position Yes -Correct Procedure Yes -Procedure Performed Yes -Post Debridement Size (cm) - Length 14.0 -Post Debridement Size (cm) - Width 1.5 -Post Debridement Size (cm) - Depth 0.2 -Total Square Cm 21.00 -Wound/Ulcer Outcome Not Healed -Ulcer Cleansing Rinsed/ Irrigated with Saline -Foul Odor after Cleansing No -Bioengineered Tissue No -Topical Lidocaine (%) 5 -Bleeding Controlled with NA -Treatment Response Procedure Tolerated Well [See Physician Procedure note for Specifics] Pain Scale: 0-10 Numeric [Pain] -Is Patient Pain Free? Yes Debridement Note Post-Debridement Measurements/Treatment - Nurse 2 - General Ulcer CM Notes Start: 09/25/17 09:34 Freq: Status: Active Protocol: Activity Type Activity Date Activity User E-Sign Co-Sign Detail Recorded Client Recorded Date Recorded By Document 09/25/17 09:58 [id number] 09/25/17 09:59 Document 10/09/17 11:20 [id number] 10/09/17 11:24 09/25/17 10/09/17 09:58 11:20 Wound Center Nurse 2 #2 right Groin/gaudencio area Hidradenitis -Time 09:58 11:20 -Correct Patient Yes Yes -Correct Side, Site, Position Yes Yes -Correct Procedure Yes Yes -Procedure Performed Yes Yes -Type of Procedure Debridement -Clinical Debridement Subcutaneous -Post Debridement Size (cm) - Length 13.5 14.0 -Post Debridement Size (cm) - Width 6.6 1.5 -Post Debridement Size (cm) - Depth 0.5 0.2 -Total Square Cm 89.10 21.00 -Wound/Ulcer Outcome Not Healed Not Healed -Ulcer Cleansing Rinsed/ Rinsed/ Irrigated with Irrigated with Saline Saline -Foul Odor after Cleansing No No -Bioengineered Tissue No No -Topical Lidocaine (%) 5 -Bleeding Controlled with Pressure NA -Treatment Response Procedure Procedure Tolerated Well Tolerated Well Pain Scale: 0-10 Numeric Is Patient Pain Free? Yes Yes Wound debrided: #2 Right inguinal and vulval area, recently skin grafted. Laterality: Right Wound Grade/Stage: 2. No debridement was completed today - the ulcer was recently skin grafted on 10/03/17. Assessment/Plan Assessment: 1. Nonhealing hidradenitis ulcer right inguinal and vulval area. 2. Right inguinal and medial thigh hidradenitis. 3. Right vulval hidradenitis involving the mons pubis and genitocrural area. 4. Smoker. 5. s/p surgical preparation right inguinal area and vulval area (involving mons pubis and genitocrural area) with excisional debridement nonhealing hidradenitis ulcer (50 cm2) and reconstruction with STSG from lateral abdominal patel (20 cm2) and secondary complex wound closure (30 cm2). 6. Early compromise to right inguinal skin graft. 7. Staphylococcus hominis hominis, Methicillin resistant. Plan: Skin graft dressing removed today. There was good adherence with about 80% take. There was about 20% compromise. A lot of moisture was present. Silver dressing changes daily will be instituted. She is currently on Levaquin and Flagyl from the surgery. However with the resistant Staph, she will need IV antibiotics along with HBO to salvage the graft. Encourage nutritional supplementation with protein to help the healing process. Encouraged the patient to stop smoking as it may have deleterious effects on wound healing. It will take too long to get started with the IV antibiotics as an outpatient. So it was recommended that she be admitted to the hospital today for placement of a PICC line and to start IV antibiotics with Vancomycin. Followup one week. Also while hospitalized, will obtain a CXR for HBO treatments. Will plan on starting HBO next week.
== END 2017-10-24 23:59 ==
LOC: WC 10:00
PROVIDERS: Family Provider Internal Medicine; PCP Internal Medicine; Visit Provider Surgery
DX: L73.2 Hidradenitis suppurativa (principal); L98.492 Non-pressure chronic ulcer of skin of other sites with fat layer exposed; F17.200 Nicotine dependence, unspecified, uncomplicated
CPT/HCPCS: 11042; 11045; 87070; 87075; 87205; 99214; G0463

== ENCOUNTER 2017-10-09 13:59 | Inpatient (IN) | payer MEDICAID, SELFPAY ==
[2017-10-09 14:13] VITALS: BMI 30.9
[2017-10-09 15:29] VITALS: BP 106/71; PULSE 88; RESP 18; TEMP 36.7; O2SAT 97
--- NOTE | 2017-10-09 15:40 | CASEMGMT ---
See RN KELVIN Assessment Link. DC PLAN: Home- possible need for IV antibiotics. -Pt is active with [facility]. RN KELVIN called to verify pt has skilled RN services and if IV antibiotics would be needed, they can accommodate on dc. [facility] PH: [phone] FX: [phone] -MOHINDER WARREN will continue to follow and assist with DC Planning. Lance MONTEZN RN AC
--- NOTE | 2017-10-09 18:48 | PCM.PN.BLA ---
Progress Note DATE OF PREVIOUS HISTORY AND PHYSICAL - October 02, 2017. DATE OF PREVIOUS SURGERY - October 03, 2017. The patient was discharged home on Levaquin and Flagyl after her surgery 10/03/17 based on a preop culture. The operative culture showed Staphylococcus hominis hominis. It is Methicillin resistant. The skin graft dressing was removed in the Wound Center today. It shows good adherence with about 80% take. There was some compromise at the edges. Some moisture was noted on the graft. Silver dressing was applied. I discussed with the patient that Resistant Staph can have detrimental effects on healing skin grafts. So the best treatment is to be aggressive with the antibiotic therapy. No good oral option is available. So IV antibiotics with Vancomycin was recommended. This would require admission to the hospital. Will start IV Vancomycin and insert a PICC line. Will continue daily dressing changes to the right groin with Silver dressings. After discharge from the hospital, I would like to have her evaluated at the Wound Center for HBO treatments to help salvage the compromised skin graft. Patient was informed of the risks and complications of the procedure including alternatives to surgery. These were discussed with the patient personally. Patient voices understanding and wishes to proceed with the current plan of aggressive IV antibiotic therapy combined with Silver dressing changes to the graft and HBO treatments to help salvage the graft.
--- NOTE | 2017-10-09 19:03 | NURSING ---
AccessRN called at this time, notified of PICC order.
--- NOTE | 2017-10-09 19:23 | NURSING ---
Since 1400, This nurse had been trying to get a hold of Dr. Patel for Ms. Jimenez as she was a direct admit from [facility]. Dr. Patel called back about 30min later and said he would put in orders. This nurse waited, no orders were obtained. Nickolas Clraos orthotics assistant informed this nurse that Dr. Patel was putting orders under wrong V number. This nurse tried to call Dr. Patel a total of 6 more times and kept getting his answering machine. Messages were left. Finally got a hold of him at 1840. Orders were obtained.
[2017-10-09] MEDS: oxyCODONE 5 MG Tablet 10 MG PO (19:30)
[2017-10-09 20:32] LABS: Hematocrit 38.2 % (37-47); Hemoglobin 12.2 g/dl (12.0-15.0); Mean Corp Hgb Conc 31.9 g/gl (32-36); Mean Corpuscular Hgb 27.9 pg (27.0-32.0); Mean Corpuscular Volume 87.2 fL (81-99); Mean Platelet Vol. 11.1 fl (6.2-12.0); Platelet Count 195 K/mm3 (150-450); RBC Distribution Width CV 14.1 % (11.6-14.6); Red Blood Count 4.38 M/mm3 (4.2-5.4); White Blood Count 11.2 K/mm3 (4.4-11.0)
[2017-10-09 20:34] LABS: Scan Indicated on CBC? Y/N NO
[2017-10-09 20:45] LABS: ALB/GLOB Ratio 0.7 RATIO (0.9-2.4); AST(SGOT) 15 U/L (15-37); Alanine Aminotransfer ALT/SGPT 15 U/L (13-56); Albumin, Serum 2.9 g/dL (3.2-5.0); Alkaline Phosphatase 104 U/L (45-117); Anion Gap 9 (5-15); BUN 11 mg/dL (7-18); BUN/Creat Ratio 11.6 RATIO (10-20); Calcium,Total 8.8 mg/dL (8.5-10.1); Chloride 105 mmol/L (98-107); Creatinine, Serum 0.95 mg/dL (0.55-1.02); EST Glomerular Filtration Rate 68 mL/min (>60); Est Glom Filt Rate - Afr Amer 82 mL/min (>60); Estimated Creatinine Clearance 65.94 ml/min; Globulin 4.2 g/dL (2.2-4.2); Glucose 112 mg/dL (74-106); Potassium 4.5 mmol/L (3.5-5.1); Protein, Total 7.1 g/dL (6.4-8.2); Sodium Level 137 mmol/L (136-145)
[2017-10-09] MEDS: diazePAM 5 MG Tablet PO (20:50)
[2017-10-09] MEDS: Gabapentin 300 MG Capsule PO (20:51)
[2017-10-09] MEDS: Lactated Ringers 1,000 ML 60 ML IV (20:51)
[2017-10-09] MEDS: Docusate Sodium 100 MG Capsule PO (20:52)
--- NOTE | 2017-10-09 20:58 | PCM.RX.CS ---
Consult Pharmacy has been consulted to manage selected antiobiotic: Vancomycin Type of Consult: New start Suspected Infection: Skin/Soft tissue Labs: Sodium 137 mmol/L (136-145) 10/09/17 20:15 Potassium 4.5 mmol/L (3.5-5.1) 10/09/17 20:15 Chloride 105 mmol/L (98-107) 10/09/17 20:15 Carbon Dioxide 23.0 mmol/L (21.0-32.0) 10/09/17 20:15 Anion Gap 9 (5-15) 10/09/17 20:15 BUN 11 mg/dL (7-18) 10/09/17 20:15 Creatinine 0.95 mg/dL (0.55-1.02) 10/09/17 20:15 Est GFR (MDRD) Af Amer 82 mL/min (>60) 10/09/17 20:15 Est GFR (MDRD) Non-Af 68 mL/min (>60) 10/09/17 20:15 BUN/Creatinine Ratio 11.6 RATIO (10-20) 10/09/17 20:15 Glucose 112 mg/dL (74-106) H 10/09/17 20:15 Weight used for dosin lb 14.355 oz Estimated Creatinine Clearance: 66 ML/MIN Goal Trough: 10-15 mcg/mL Pharmacy Plan for Drug Dosing: Pharmacy Service will continue to monitor and adjust dosing as required. VANCOMYCIN 1250MG LOADING DOSE THEN 750MG Q12H Follow-Up Labs: Trough Vancomycin Labs to be done on [date and time ordered]: 10/11 AT 0830
[2017-10-09 21:00] VITALS: BP 112/72; PULSE 83; RESP 16; TEMP 37; O2SAT 96
[2017-10-10] VITALS (7 sets, daily range): BP systolic 86–98; BP diastolic 53–68; PULSE 72–81; RESP 16–20; TEMP 36.2–37; O2SAT 91–96
[2017-10-10] MEDS: oxyCODONE 5 MG Tablet 10 MG PO ×4 (03:21→21:21)
[2017-10-10] MEDS: Docusate Sodium 100 MG Capsule PO ×2 (08:06→21:20)
[2017-10-10] MEDS: Gabapentin 300 MG Capsule PO ×3 (08:06→18:43)
--- NOTE | 2017-10-10 11:03 | NURSING ---
wound photo: left lower abdomen
--- NOTE | 2017-10-10 11:04 | NURSING ---
wound photo: lower abdomen/right groin
--- NOTE | 2017-10-10 11:05 | NURSING ---
wound photo: right lower abdomen
[2017-10-10] MEDS: Lactated Ringers 1,000 ML 60 ML IV (11:08)
[2017-10-10] MEDS: 0.9% NaCl PICC Flush 10 ML IV ×2 (11:10→18:41)
--- NOTE | 2017-10-10 12:41 | NURSING ---
Larger Abdominal binder applied per orders. This nurse went to empty IZZY drains x2, both had no drainage to empty/record. Will continue to monitor.
--- NOTE | 2017-10-10 14:08 | CASEMGMT ---
MOHINDER WARREN Note: Awaiting Script for IV antibiotic on discharge. Anticipate Vancomycin twice daily. Will fax clinical packet to [facility] when script is written by Dr. Patel. -called to [facility]. Spoke with Mallory. updated that anticipated dc is tomorrow. Am dose of IV antibiotic will be given @ [facility] and [facility] RN will need to give evening dose. Per Mallory this can be staffed. -spoke with pt and updated on above. Pt is anxious because she planned to go home this am. MOHINDER WARREN explained that dc cannot be coordinated without IV antibiotic being set up through infusion company and this requires script. MOHINDER WARREN let her know if script is received, referral can be sent in am and will attempt to coordinate delivery and [facility] for Mon10/11/17 evening. -Francisca Disla RN CM updated and given referral packets. Lance CHIRINOS RN [facility]
--- NOTE | 2017-10-10 16:02 | NURSING ---
RN from [facility] called and stated that they can only do the iv antibiotic once a day and family would need to be taught how to do the second dose before patient being discharged. if there are any questions you can call the office at [phone]
--- NOTE | 2017-10-10 16:31 | NURSING ---
pt has been complaining that she has a lot of pain in Left abd where IZZY drain is. Dr. Patel called and made aware of this and that there is no drainage in both. No new orders. He will come see her yet this evening.
--- NOTE | 2017-10-10 17:49 | PCM.PN.SRG ---
Subjective: Postop #7 Patient is resting comfortably. Getting Vancomycin. PICC line to be placed today. - Physical Exam General: Alert, Oriented x3 HEENT: PERRLA, EOMI Oral: Moist Mucosa Neck: Supple Abdomen: Soft, Non-Distended Skin: Ulcer/ Wound - Skin graft shows good healing thus far. It shows good adherence with about 80% take. There was some compromise at the edges. Some moisture was noted on the graft. Silver dressing was applied., Incision - lateral abdominal incisions are dry and intact. Neurological: Cranial nerves II-XII grossly intact Psych/Mental Status: Normal Affect, Appropriate Vital Signs Temp Pulse Resp BP Pulse Ox 97.2 F L 80 18 96/68 93 10/10/17 13:07 10/10/17 13:07 10/10/17 13:07 10/10/17 13:07 10/10/17 13:07 Oxygen Delivery Method Room Air Weight: 179 lb 14.355 oz Body Mass Index (BMI) 30.9 Intake and Output for Last 24 Hours 10/08/17 10/09/17 10/10/17 23:59 23:59 23:59 Intake Total 803 / 803 846 / 846 Output Total 300 / 300 515 / 515 Balance 503 / 503 331 / 331 Drainage 15 ml today. Laboratory Tests Past 24 Hrs 10/09/17 10/09/17 20:15 20:15 WBC 11.2 H RBC 4.38 Hgb 12.2 Hct 38.2 MCV 87.2 MCH 27.9 MCHC 31.9 L RDW 14.1 RDW Differential 45.0 H Plt Count 195 MPV 11.1 Sodium 137 Potassium 4.5 Chloride 105 Carbon Dioxide 23.0 Anion Gap 9 BUN 11 Creatinine 0.95 Estim Creat Clear Calc 65.94 Est GFR (MDRD) Af Amer 82 Est GFR (MDRD) Non-Af 68 BUN/Creatinine Ratio 11.6 Glucose 112 H Calcium 8.8 Total Bilirubin 0.30 AST 15 ALT 15 Alkaline Phosphatase 104 Total Protein 7.1 Albumin 2.9 L Globulin 4.2 Albumin/Globulin Ratio 0.7 L Medical Necessity - Tobacco Use Smoking Status: Current every day smoker Assessment/Plan All Active Problems (Last Updated 11/07/17 @ 16:48 by Nneka Arreola) Skin graft infection (Acute) Partial loss of skin graft (Acute) Non-healing open wound of right groin (Acute) Open wound of vulva (Acute) 1. Nonhealing hidradenitis ulcer right inguinal and vulval area involving the mons pubis and genitocrural area. 2. s/p excision hidradenitis right inguinal area and vulval area. 3. Smoker. 4. s/p surgical preparation right inguinal area and vulval area (involving mons pubis and genitocrural area) with excisional debridement nonhealing hidradenitis ulcer (50 cm2) and reconstruction with STSG from lateral abdominal patel (20 cm2) and secondary complex wound closure (30 cm2). 5. Compromised skin graft right inguinal and vulval area. 6. Methicillin resistant Staphylococcus hominis hominis. Vancomycin started for the Methicillin resistant Staphylococcus hominis hominis. PICC line to be placed today. Encourage nutritional supplementation with protein to help the healing process. Continue Silver dressings to the compromised skin graft in the right inguinal and vulval areas. Arranging Home Health and an Infusion company.
[2017-10-10] MEDS: HYDROmorphone 1 MG/ML Syringe IV ×2 (18:41→23:25)
[2017-10-11 02:25] VITALS: RESP 18
[2017-10-11 03:30] VITALS: BP 105/50; PULSE 74; RESP 18; TEMP 36.3; O2SAT 95
[2017-10-11] MEDS: oxyCODONE 5 MG Tablet 10 MG PO ×5 (04:53→21:53)
[2017-10-11] MEDS: Lactated Ringers 1,000 ML 60 ML IV (04:53)
[2017-10-11 08:45] LABS: Hematocrit 34.4 % (37-47); Hemoglobin 10.9 g/dl (12.0-15.0); Mean Corp Hgb Conc 31.7 g/gl (32-36); Mean Corpuscular Volume 88.4 fL (81-99); Mean Platelet Vol. 10.9 fl (6.2-12.0); Platelet Count 179 K/mm3 (150-450); RBC Distribution Width CV 14.2 % (11.6-14.6); RBC Distribution Width SD 46.2 fl (35.1-43.9); Red Blood Count 3.89 M/mm3 (4.2-5.4)
[2017-10-11 08:48] LABS: Scan Indicated on CBC? Y/N NO
[2017-10-11] MEDS: Gabapentin 300 MG Capsule PO ×3 (08:51→17:50)
[2017-10-11 09:08] LABS: Anion Gap 8 (5-15); BUN 8 mg/dL (7-18); BUN/Creat Ratio 9.7 RATIO (10-20); Calcium,Total 8.6 mg/dL (8.5-10.1); Chloride 109 mmol/L (98-107); Creatinine, Serum 0.82 mg/dL (0.55-1.02); EST Glomerular Filtration Rate 80 mL/min (>60); Est Glom Filt Rate - Afr Amer 97 mL/min (>60); Estimated Creatinine Clearance 76.39 ml/min; Glucose 89 mg/dL (74-106); Potassium 4.3 mmol/L (3.5-5.1); Sodium Level 143 mmol/L (136-145)
[2017-10-11 09:12] LABS: Vancomycin, Trough Level 7.9 ug/mL (5.0-15.0)
[2017-10-11 10:00] VITALS: BP 90/61; PULSE 74; RESP 16; TEMP 36.8; O2SAT 96
[2017-10-11 12:21] VITALS: BP 103/66; PULSE 73; RESP 16; TEMP 36.8; O2SAT 99
--- NOTE | 2017-10-11 13:29 | PCM.RX.CS ---
Consult Pharmacy has been consulted to manage selected antiobiotic: Vancomycin Type of Consult: Follow-up Suspected Infection: Skin/Soft tissue Prior Doses of Antibiotics Received/Current Regimen: Received Vancomycin 750mg IV on 10/10/17 at 11:09 and 21:20 and then today at 08:51 Labs: Sodium 143 mmol/L (136-145) 10/11/17 08:25 Potassium 4.3 mmol/L (3.5-5.1) 10/11/17 08:25 Chloride 109 mmol/L (98-107) H 10/11/17 08:25 Carbon Dioxide 26.0 mmol/L (21.0-32.0) 10/11/17 08:25 Anion Gap 8 (5-15) 10/11/17 08:25 BUN 8 mg/dL (7-18) 10/11/17 08:25 Creatinine 0.82 mg/dL (0.55-1.02) 10/11/17 08:25 Est GFR (MDRD) Af Amer 97 mL/min (>60) 10/11/17 08:25 Est GFR (MDRD) Non-Af 80 mL/min (>60) 10/11/17 08:25 BUN/Creatinine Ratio 9.7 RATIO (10-20) L 10/11/17 08:25 Glucose 89 mg/dL (74-106) 10/11/17 08:25 Vancomycin Trough 7.9 ug/mL (5.0-15.0) 10/11/17 08:25 Goal Trough: 10-15 mcg/mL Pharmacy Plan for Drug Dosing: Trough drawn before this morning's dose was a little low at 7.9. Will increase dose slightly to 1000mg IV q12h and obtain another trough before the 4th dose. Pharmacy Service will continue to monitor and adjust dosing as required. Follow-Up Labs: Trough Vancomycin Labs to be done on [date and time ordered]: 10/13/17 at 08:30
--- NOTE | 2017-10-11 13:33 | PHA.PHARE_ITS ---
Consult Pharmacy has been consulted to manage selected antiobiotic: Vancomycin Type of Consult: Follow-up Suspected Infection: Skin/Soft tissue Prior Doses of Antibiotics Received/Current Regimen: Received Vancomycin 750mg IV on 10/10/17 at 11:09 and 21:20 and then today at 08: 51 Labs: Sodium 143 mmol/L (136-145) 10/11/17 08:25 Potassium 4.3 mmol/L (3.5-5.1) 10/11/17 08:25 Chloride 109 mmol/L (98-107) H 10/11/17 08:25 Carbon Dioxide 26.0 mmol/L (21.0-32.0) 10/11/17 08:25 Anion Gap 8 (5-15) 10/11/17 08:25 BUN 8 mg/dL (7-18) 10/11/17 08:25 Creatinine 0.82 mg/dL (0.55-1.02) 10/11/17 08:25 Est GFR (MDRD) Af Amer 97 mL/min (>60) 10/11/17 08:25 Est GFR (MDRD) Non-Af 80 mL/min (>60) 10/11/17 08:25 BUN/Creatinine Ratio 9.7 RATIO (10-20) L 10/11/17 08:25 Glucose 89 mg/dL (74-106) 10/11/17 08:25 Vancomycin Trough 7.9 ug/mL (5.0-15.0) 10/11/17 08:25 Goal Trough: 10-15 mcg/mL Pharmacy Plan for Drug Dosing: Trough drawn before this morning's dose was a little low at 7.9. Will increase dose slightly to 1000mg IV q12h and obtain another trough before the 4th dose. Pharmacy Service will continue to monitor and adjust dosing as required. Follow-Up Labs: Trough Vancomycin Labs to be done on [date and time ordered]: 10/13/17 at 08:30
--- NOTE | 2017-10-11 14:28 | RAD_ITS ---
STUDY: X-RAY CHEST REASON FOR EXAM: Female, 42 years old. Nonproductive cough TECHNIQUE: PA and lateral views of the chest. COMPARISON: None. FINDINGS: Small amount of airspace disease in the left lower lobe could represent atelectasis or infiltrate. There is no demonstrated pleural abnormality. Normal size heart. Normal mediastinum and hiren. Normal visualized pulmonary arteries. Normal visualized aortic arch and descending thoracic aorta. Normal visualized thoracic spine. Normal visualized ribs, clavicles, and shoulders. There is no demonstrated abnormality of the visualized soft tissue structures of the upper abdomen. RAD/Chest PA and Lateral IMPRESSION: Small amount of airspace disease in the left lower lobe could represent atelectasis or infiltrate. Electronically Signed: De Reeder DO at 15:15 EDT Tel , Service support ,
--- NOTE | 2017-10-11 14:31 | PCM.PN.SRG ---
Subjective: Postop #8 Patient is having trouble with the left drain with increased pain. - Physical Exam General: Alert, Oriented x3 HEENT: PERRLA, EOMI Oral: Moist Mucosa Neck: Supple Abdomen: Soft, Non-Distended Skin: Ulcer/ Wound - Skin graft shows good healing thus far. It shows good adherence with about 80% take. There was some compromise at the edges. Some moisture was noted on the graft. Silver dressing was applied., Incision - lateral abdominal incisions are dry and intact. Neurological: Cranial nerves II-XII grossly intact Psych/Mental Status: Normal Affect, Appropriate Vital Signs Temp Pulse Resp BP Pulse Ox 98.2 F 73 16 103/66 99 10/11/17 12:21 10/11/17 12:21 10/11/17 12:21 10/11/17 12:21 10/11/17 12:21 Oxygen Delivery Method Room Air Weight: 179 lb 14.355 oz Body Mass Index (BMI) 30.9 Intake and Output for Last 24 Hours 10/09/17 10/10/17 10/11/17 23:59 23:59 23:59 Intake Total 803 / 803 2487 / 2487 575 / 575 Output Total 300 / 300 1365 / 1365 5 / 5 Balance 503 / 503 1122 / 1122 570 / 570 Drainage 45 ml today. Laboratory Tests Past 24 Hrs 10/11/17 10/11/17 10/11/17 08:25 08:25 08:25 WBC 7.0 RBC 3.89 L Hgb 10.9 L Hct 34.4 L MCV 88.4 MCH 28.0 MCHC 31.7 L RDW 14.2 RDW Differential 46.2 H Plt Count 179 MPV 10.9 Sodium 143 Potassium 4.3 Chloride 109 H Carbon Dioxide 26.0 Anion Gap 8 BUN 8 Creatinine 0.82 Estim Creat Clear Calc 76.39 Est GFR (MDRD) Af Amer 97 Est GFR (MDRD) Non-Af 80 BUN/Creatinine Ratio 9.7 L Glucose 89 Calcium 8.6 Vancomycin Trough 7.9 Medical Necessity - Tobacco Use Smoking Status: Current every day smoker Assessment/Plan All Active Problems (Last Updated 11/07/17 @ 16:48 by Nneka Arreola) Skin graft infection (Acute) Partial loss of skin graft (Acute) Non-healing open wound of right groin (Acute) Open wound of vulva (Acute) 1. Nonhealing hidradenitis ulcer right inguinal and vulval area involving the mons pubis and genitocrural area. 2. s/p excision hidradenitis right inguinal area and vulval area. 3. Smoker. 4. s/p surgical preparation right inguinal area and vulval area (involving mons pubis and genitocrural area) with excisional debridement nonhealing hidradenitis ulcer (50 cm2) and reconstruction with STSG from lateral abdominal patel (20 cm2) and secondary complex wound closure (30 cm2). 5. Compromised skin graft right inguinal and vulval area. 6. Methicillin resistant Staphylococcus hominis hominis. Continue Vancomycin for the Methicillin resistant Staphylococcus hominis hominis. PICC line in place. The left drain is painful when manipulated. It was removed today without difficulty. Will remove the other drain next week at the Wound Center. Encourage nutritional supplementation with protein to help the healing process. Continue Silver dressings to the compromised skin graft in the right inguinal and vulval areas. Arranging Home Health and an Infusion company. A CXR will be obtained today in preparation for HBO treatments that she will undergo at the Wound Center after discharge to help salvage a compromised graft. Encouraged patient to stop smoking as it may have deleterious effects on wound healing.
--- NOTE | 2017-10-11 14:55 | DCINST_ITS ---
- Discharge Diagnoses Current Active Problems: Current Active and Chronic Problems Skin graft infection (Acute) compromised skin graft infection right inguinal and vulval area Partial loss of skin graft (Acute) compromised skin graft infection right inguinal and vulval area You will use the following diet at home:: No restrictions, Other - encourage nutritional supplementation with protein to help the healing process. Discharge Activity: May Not Drive, May Not Shower - until drain is removed., - - no heavy lifting. wear abdominal binder. May shower in (days): 7 - after the drain is removed. May resume sexual activity in: 10-14 days Weight Bearing Status: Weight bearing as tolerated Lifting Restrictions: 20 lbs. Call your doctor if your incision/area has: Continuous Slow Oozing, Sudden Increased Bleeding, Increased Pain/ Swelling, Increased Redness, Foul Smelling Discharge, Swelling at the incision site Call your doctor if you observe: Fever of 101 or Higher, Coldness, Increased Pain, Shortness of breath, Chest pain, Calf discomfort, Uncontrolled pain Suture Line Care: - - Aquacel silver dressing daily to the skin graft right groin. antibiotic ointment to suture lines daily. Change Dressing in (Days):: 1 - skin graft dressings daily with aquacel silver right groin. Cleanse incision/area with: - - may get the incisions and skin graft wet in the shower after the drain is removed. Drain: Suction - gunner drain to bulb suction. empty and record output daily. Pending Tests on Discharge: Home Health to draw CBC, CMP, ESR, CRP, Vancomycin Trough qMonday. Pharmacy to dose. Please fax results to wound center at [phone]. Allergies/Adverse Reactions: Allergies No Known Allergies Allergy (Verified 10/02/17 09:45) Medications to take at Discharge Gabapentin [Neurontin] 300 mg PO TID 10/02/17 Diazepam [Valium] 5 mg PO 4X/DAY PRN PRN #30 tab 10/11/17 Docusate Sodium [Colace] 100 mg PO BID capsule 10/11/17 Ensure Enlive 120 ml PO 4X/DAY liquid 10/11/17 Oxycodone HCl/Acetaminophen [Percocet 5-325] 1 - 2 tab PO 4X/DAY PRN PRN #50 tab 10/11/17 Vancomycin IV 750 mg IV Q12H 40 Days #80 vial 10/11/17 Vancomycin IV [Vancomycin] 1,000 mg IV Q12H bag 10/11/17 proMETHazine tablet [Phenergan tablet] 25 mg PO 4X/DAY PRN PRN #30 tab 10/11/17 The following prescriptions were given: Diazepam [Valium] 5 mg PO 4X/DAY PRN PRN #30 tab PRN Reason: Spasms Oxycodone HCl/Acetaminophen [Percocet 5-325] 1 - 2 tab PO 4X/DAY PRN PRN #50 tab PRN Reason: Pain proMETHazine tablet [Phenergan tablet] 25 mg PO 4X/DAY PRN PRN #30 tab PRN Reason: Nausea/Vomiting Vancomycin IV 750 mg IV Q12H 40 Days #80 vial Primary Care Physician: Tiki Allison MD [Primary Care Provider] - Test Results: Test results from this visit will be discussed in further detail at your follow- up appointment, if applicable. Please Follow Up With: Zacarias Patel MD - Has HBO treatment 10/16/17 at 1000am. When: monday at wound center 10/16/17 at 830am. Proposed Discharge Date: 10/12/17
[2017-10-11 16:58] VITALS: BP 94/75; PULSE 71; RESP 18; TEMP 36.9; O2SAT 98
--- NOTE | 2017-10-11 17:25 | CASEMGMT ---
MOHINDER WARREN NOTE: RN KELVIN obtained script for IV ATB's and sent referral packet to [facility] for home IV ATB's. [facility] running financial information and awaiting confirmation and delivery. Updated lab work sent to [facility]. CM will continue to follow this pt and plan for a safe discharge. Shayla BSN MOHINDER WARREN
[2017-10-11] MEDS: diazePAM 5 MG Tablet PO (17:52)
[2017-10-11] MEDS: Vancomycin IV 1,000 MG/200 ML BAG 200 MG IV (21:06)
[2017-10-11] MEDS: 0.9% NaCl PICC Flush 10 ML IV ×2 (21:07→22:29)
[2017-10-11 21:18] VITALS: BP 104/74; PULSE 72; RESP 16; TEMP 36.7; O2SAT 98
[2017-10-12 03:12] VITALS: BP 102/72; PULSE 70; RESP 16; TEMP 36.8; O2SAT 97
[2017-10-12] MEDS: oxyCODONE 5 MG Tablet 10 MG PO ×2 (08:31→12:45)
[2017-10-12] MEDS: Gabapentin 300 MG Capsule PO ×2 (08:31→12:45)
[2017-10-12 08:41] VITALS: BP 96/63; PULSE 68; RESP 18; TEMP 36.5; O2SAT 94
[2017-10-12] MEDS: 0.9% NaCl PICC Flush 10 ML IV ×3 (08:58→13:57)
[2017-10-12] MEDS: Vancomycin IV 1,000 MG/200 ML BAG 200 MG IV ×2 (08:59→15:01)
--- NOTE | 2017-10-12 09:53 | PN.SURG_ITS ---
Subjective: Postop #9 Patient resting comfortably. Arrangements have been made for home IV Vancomycin. - Physical Exam General: Alert, Oriented x3 HEENT: PERRLA, EOMI Oral: Moist Mucosa Neck: Supple Abdomen: Soft, Non-Distended Skin: Ulcer/ Wound - Skin graft shows good healing thus far. It shows good adherence with about 80% take. There was some compromise at the edges. Some moisture was noted on the graft. Silver dressing was applied., Incision - lateral abdominal incisions are dry and intact. Neurological: Cranial nerves II-XII grossly intact Psych/Mental Status: Normal Affect, Appropriate Vital Signs Temp Pulse Resp BP Pulse Ox 97.7 F L 68 18 96/63 94 10/12/17 08:41 10/12/17 08:41 10/12/17 08:41 10/12/17 08:41 10/12/17 08:41 Oxygen Delivery Method Room Air Weight: 179 lb 14.355 oz Body Mass Index (BMI) 30.9 Intake and Output for Last 24 Hours 10/10/17 10/11/17 10/12/17 23:59 23:59 23:59 Intake Total 2487 / 2487 2585 / 2585 Output Total 1365 / 1365 45 / 45 15 / 15 Balance 1122 / 1122 2540 / 2540 -15 / -15 Drainage 15 ml today. Diagnostic Data Chest X-Ray 10/11/17 14:28 IMPRESSION: Small amount of airspace disease in the left lower lobe could represent atelectasis or infiltrate. Electronically Signed: De Reeder DO at 15:15 EDT Tel , Service support , Medical Necessity - Tobacco Use Smoking Status: Current every day smoker Assessment/Plan All Active Problems (Last Updated 11/07/17 @ 16:48 by Nneka Arreola) Skin graft infection (Acute) Partial loss of skin graft (Acute) Non-healing open wound of right groin (Acute) Open wound of vulva (Acute) 1. Nonhealing hidradenitis ulcer right inguinal and vulval area involving the mons pubis and genitocrural area. 2. s/p excision hidradenitis right inguinal area and vulval area. 3. Smoker. 4. s/p surgical preparation right inguinal area and vulval area (involving mons pubis and genitocrural area) with excisional debridement nonhealing hidradenitis ulcer (50 cm2) and reconstruction with STSG from lateral abdominal patel (20 cm2) and secondary complex wound closure (30 cm2). 5. Compromised skin graft right inguinal and vulval area. 6. Methicillin resistant Staphylococcus hominis hominis. Continue Vancomycin for the Methicillin resistant Staphylococcus hominis hominis. PICC line in place. Will remove the other drain next week at the Wound Center. Encourage nutritional supplementation with protein to help the healing process. Continue Silver dressings to the compromised skin graft in the right inguinal and vulval areas. IV Vancomycin has been arranged for home. Discharge home today. Followup at Wound Center one week. A CXR was done in preparation for HBO treatments that she will undergo at the Wound Center after discharge to help salvage a compromised graft. It showed a small amount of atelectasis on the left. Wrote scripts for Percocet for pain (50 tabs) and for Valium for spasm (30 tabs) . Wrote script for Phenergan for nausea (30 tabs) and a refill. Encouraged patient to stop smoking as it may have deleterious effects on wound healing.
--- NOTE | 2017-10-12 11:05 | NURSING ---
called pharmacy at this time- spoke with Jennifer Dao- notified that 1000 eucerin in not on unit. States it will be sent.
--- NOTE | 2017-10-12 12:00 | CASEMGMT ---
MOHINDER WARREN confirmed IV ATB setup with [facility] and arranged for delivery to home this afternoon. MOHINDER WARREN confirmed that [facility] is able to see patient in morning at 9am with next IV ATB dose. MOHINDER WARREN updated patient that Jaquelin from [facility] would see patient in morning at 9am.
--- NOTE | 2017-10-12 12:52 | PCM.DC.SUM ---
Discharge Date and Diagnosis Date of Admission: 10/09/17 Date of Discharge: 10/12/17 - Primary Discharge Diagnosis Nonhealing hidradenitis ulcer right inguinal and vulval area involving the mons pubis and genitocrural area. Compromised skin graft infection right inguinal area. - Secondary Discharge Diagnosis Smoker. Vulval hidradenitis suppurativa. Right inguinal and medial thigh hidradenitis. Hospital Course and Treatment Imaging Results: Diagnostic Data Chest X-Ray 10/11/17 14:28 IMPRESSION: Small amount of airspace disease in the left lower lobe could represent atelectasis or infiltrate. Electronically Signed: De Reeder DO at 15:15 EDT Tel , Service support , Consultations 10/10/17 00:39 Consult: Onc/Wound/butt sawyer Routine Comment: wound care Operations: None Procedures: PICC line placement Summary of Care Provided: The patient is a 42 year old F who recently had surgery on 10/03/17 where she underwent surgical preparation right inguinal area and vulval area (involving mons pubis and genitocrural area) with excisional debridement nonhealing hidradenitis ulcer (50 cm2) and reconstruction with STSG from lateral abdominal patel (20 cm2) and secondary complex wound closure (30 cm2). The patient was discharged home on Levaquin and Flagyl after her surgery 10/03/17 based on a preop culture. The operative culture showed Staphylococcus hominis hominis. It is Methicillin resistant. The skin graft dressing was removed in the Wound Center yesterday. It shows good adherence with about 80% take. There was some compromise at the edges. Some moisture was noted on the graft. Silver dressing was applied. I discussed with the patient that Resistant Staph can have detrimental effects on healing skin grafts. So the best treatment is to be aggressive with the antibiotic therapy. No good oral option is available. So IV antibiotics with Vancomycin was recommended. Patient was admitted on 10/09/17 and a PICC line was paced and IV Vancomycin was started. Will continue daily dressing changes to the right groin with Silver dressings. After discharge from the hospital, I would like to have her evaluated at the Wound Center for HBO treatments to help salvage the compromised skin graft. Her hospital course was unremarkable. She tolerated the Vancomycin without problem. The compromised skin graft was stable with the Silver dressing changes. She did have some pain at the left drain site and it was pulled during her hospital stay. The right drain will be removed at the Wound Center next week. I discussed with the patient that after discharge, I want her evaluated for HBO treatments due to her compromised graft. I looked at her ears while at the Wound Center. She has not had a CXR in the last 6 months. So a CXR was done. It showed a small amount of airspace disease in the left lower lobe could represent atelectasis or infiltrate. [facility] was contacted for her antibiotics and Home Health will assist with the wound care and the antibiotics. After arrangements were made on the 3rd hospital day, she was discharged home in satisfactory condition. Followup at the Wound Center on 10/16/17. Tentatively, she will start HBO on that day as well. Will remove the remaining drain as well. Discharge Diet: No Restrictions, - Discharge Activity: May Not Drive, May Not Shower - until drain is removed., - - no heavy lifting. wear abdominal binder. May shower in (days): 7 - after the drain is removed. May resume sexual activity in: 10-14 days Weight Bearing Status: Weight bearing as tolerated Call your doctor if your incision/area has: Continuous Slow Oozing, Sudden Increased Bleeding, Increased Pain/ Swelling, Increased Redness, Foul Smelling Discharge, Swelling at the incision site Call your doctor if you observe: Fever of 101 or Higher, Coldness, Increased Pain, Shortness of breath, Chest pain, Calf discomfort, Uncontrolled pain Suture Line Care: - - Aquacel silver dressing daily to the skin graft right groin. antibiotic ointment to suture lines daily. Change Dressing in (Days):: 1 - skin graft dressings daily with aquacel silver right groin. Cleanse incision/area with: - - may get the incisions and skin graft wet in the shower after the drain is removed. Drain: Suction - gunner drain to bulb suction. empty and record output daily. Home Medications: Medications to take at Discharge Gabapentin [Neurontin] 300 mg PO TID 10/02/17 Diazepam [Valium] 5 mg PO 4X/DAY PRN PRN #30 tab 10/11/17 Docusate Sodium [Colace] 100 mg PO BID capsule 10/11/17 Ensure Enlive 120 ml PO 4X/DAY liquid 10/11/17 Oxycodone HCl/Acetaminophen [Percocet 5-325] 1 - 2 tab PO 4X/DAY PRN PRN #50 tab 10/11/17 Vancomycin IV 750 mg IV Q12H 40 Days #80 vial 10/11/17 Vancomycin IV [Vancomycin] 1,000 mg IV Q12H bag 10/11/17 proMETHazine tablet [Phenergan tablet] 25 mg PO 4X/DAY PRN PRN #30 tab 10/11/17 Following Prescrptions Were Given to Patient: Diazepam [Valium] 5 mg PO 4X/DAY PRN PRN #30 tab PRN Reason: Spasms Oxycodone HCl/Acetaminophen [Percocet 5-325] 1 - 2 tab PO 4X/DAY PRN PRN #50 tab PRN Reason: Pain proMETHazine tablet [Phenergan tablet] 25 mg PO 4X/DAY PRN PRN #30 tab PRN Reason: Nausea/Vomiting Vancomycin IV 750 mg IV Q12H 40 Days #80 vial Primary Care Physician: Tiki Allison MD [Primary Care Provider] - Please Follow Up With: Zacarias Patel MD - Has HBO treatment 10/16/17 at 1000am. When: monday at wound center 10/16/17 at 830am. Patient Instructions: Peripherally Inserted Central Catheter (PICC), Discharge Instructions: Changing the Dressing on Your Peripherally..., Discharge Instructions: Caring for Your Peripherally Inserted Central..., Central Line Infections, Flushing Your PICC Line at Home Disposition: Home with Home Health Minutes spent on discharge:: 35 Patient Condition:: Good Medical Necessity - Tobacco Use Smoking Status: Current every day smoker Meaningful Use Info Meaningful Use Diagnoses (Choose all that apply): None applicable
[2017-10-12 13:52] VITALS: BP 111/70; PULSE 75; RESP 18; TEMP 36.4; O2SAT 97
== END 2017-10-12 16:45 | disposition home health service (06) | DRG 453 ==
PROVIDERS: Admitting Provider Surgery; Family Provider Internal Medicine; PCP Internal Medicine; Visit Provider Surgery
DX: T86.822 Skin graft (allograft) (autograft) infection (principal); F17.200 Nicotine dependence, unspecified, uncomplicated
CPT/HCPCS: 36415; 36569; 71046; 80048; 80053; 80202; 85027; 97802; 99214; 99406; J7040; J7050; J7120; A4216; G0463

== ENCOUNTER → 2017-10-16 09:16 | Outpatient (CLI) | payer SELFPAY ==
[2017-10-16 09:29] LABS: Erythrocyte Sedimentation Rate 41 mm/hr (0-20)
[2017-10-16 09:36] LABS: Hematocrit 35.6 % (37-47); Hemoglobin 11.3 g/dl (12.0-15.0); Mean Corp Hgb Conc 31.7 g/gl (32-36); Mean Corpuscular Hgb 28.5 pg (27.0-32.0); Mean Corpuscular Volume 89.7 fL (81-99); Mean Platelet Vol. 11.5 fl (6.2-12.0); Platelet Count 248 K/mm3 (150-450); RBC Distribution Width CV 13.8 % (11.6-14.6); RBC Distribution Width SD 45.1 fl (35.1-43.9); Red Blood Count 3.97 M/mm3 (4.2-5.4); White Blood Count 7.9 K/mm3 (4.4-11.0)
[2017-10-16 09:41] LABS: ALB/GLOB Ratio 0.7 RATIO (0.9-2.4); AST(SGOT) 13 U/L (15-37); Alanine Aminotransfer ALT/SGPT 22 U/L (13-56); Albumin, Serum 2.7 g/dL (3.2-5.0); Alkaline Phosphatase 104 U/L (45-117); Anion Gap 9 (5-15); BUN 8 mg/dL (7-18); BUN/Creat Ratio 10.1 RATIO (10-20); Calcium,Total 8.8 mg/dL (8.5-10.1); Chloride 111 mmol/L (98-107); EST Glomerular Filtration Rate 84 mL/min (>60); Est Glom Filt Rate - Afr Amer 101 mL/min (>60); Globulin 3.7 g/dL (2.2-4.2); Glucose 99 mg/dL (74-106); Protein, Total 6.4 g/dL (6.4-8.2); Sodium Level 147 mmol/L (136-145)
[2017-10-16 09:45] LABS: Scan Indicated on CBC? Y/N NO
[2017-10-16 09:52] LABS: Vancomycin, Trough Level 11.6 ug/mL (5.0-15.0)
== END ==
PROVIDERS: Visit Provider Surgery
DX: T85.79XA Infection and inflammatory reaction due to other internal prosthetic devices, implants and grafts, initial encounter (principal)
CPT/HCPCS: 80053; 80202; 85027; 85652; 86140

== ENCOUNTER 2017-10-24 10:00 | Outpatient (RCR) | payer MEDICAID, SELFPAY ==
[2017-10-14 00:09] VITALS: BP 112/77; PULSE 88; RESP 16; TEMP 36; BMI 76.8
[2017-10-16 10:36] VITALS: BP 104/67; BP 119/73; PULSE 59; PULSE 76; RESP 16; TEMP 36; TEMP 36.1
--- NOTE | 2017-10-16 22:23 | PCM.HBO.PN ---
History of Present Illness Date of Service: 10/16/17 Presenting Chief Complaint: Compromised skin graft infection right inguinal area. ИВАН DE LA VEGA is a 42 year old currently undergoing hyperbaric oxygen therapy for compromised skin graft infection right inguinal area. Progress: She has tolerated hyperbaric oxygen therapy well so far. This was her 1st treatment. Tolerance of hyperbaric oxygen therapy: Hyperbaric oxygen therapy was administered as per the facility's protocol. Procedure was well-tolerated with no complications or complaints. 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) nonhealing hidradenitis ulcer right inguinal area Skin ulcer of multiple sites of vulva (Chronic) nonhealing ulcer right vulval area Smoker (Chronic) Vulval hidradenitis suppurativa (Chronic) Hidradenitis suppurativa (Chronic) right inguinal and medial thigh hidradenitis Allergies/Adverse Reactions: Allergies No Known Allergies Allergy (Verified 11/14/17 13:29) Home Medications: Ambulatory Orders Medication Instructions Recorded Diazepam [Valium] 5 mg PO 4X/DAY PRN PRN #30 tab 10/11/17 Docusate Sodium [Colace] 100 mg PO BID capsule 10/11/17 Ensure Enlive 120 ml PO 4X/DAY liquid 10/11/17 Oxycodone HCl/Acetaminophen 1 - 2 tab PO 4X/DAY PRN PRN #50 tab 10/11/17 [Percocet 5-325] Vancomycin IV 750 mg IV Q12H 40 Days #80 vial 10/11/17 Vancomycin IV [Vancomycin] 1,000 mg IV Q12H bag 10/11/17 fluconazole 100 mg tablet 100 mg PO BID #28 tab 11/07/17 Smoking Status: Current every day smoker Physical Exam Vital Signs Temp Pulse Resp BP 96.9 F L 76 16 104/67 10/16/17 10:36 10/16/17 10:36 10/16/17 10:36 10/16/17 10:36
[2017-10-18 10:02] VITALS: BP 115/56; BP 122/85; PULSE 58; PULSE 62; RESP 16; TEMP 35.9; TEMP 36.3
--- NOTE | 2017-10-18 19:43 | PCM.HBO.PN ---
History of Present Illness Date of Service: 10/18/17 Presenting Chief Complaint: Nonhealing hidradenitis ulcer left inguinal, pubic, and perineal area. ИВАН DE LA VEGA is a 42 year old currently undergoing hyperbaric oxygen therapy for nonhealing hidradenitis of the left inguinal, pubic and perineal area Progress: She has tolerated hyperbaric oxygen therapy well so far Tolerance of hyperbaric oxygen therapy: Hyperbaric oxygen therapy was administered as per the facility's protocol. Procedure was well-tolerated with no complications or complaints. 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) nonhealing hidradenitis ulcer right inguinal area Skin ulcer of multiple sites of vulva (Chronic) nonhealing ulcer right vulval area Smoker (Chronic) Vulval hidradenitis suppurativa (Chronic) Hidradenitis suppurativa (Chronic) right inguinal and medial thigh hidradenitis Allergies/Adverse Reactions: Allergies No Known Allergies Allergy (Verified 10/02/17 09:45) Home Medications: Ambulatory Orders Medication Instructions Recorded Gabapentin [Neurontin] 300 mg PO TID 10/02/17 Diazepam [Valium] 5 mg PO 4X/DAY PRN PRN #30 tab 10/11/17 Docusate Sodium [Colace] 100 mg PO BID capsule 10/11/17 Ensure Enlive 120 ml PO 4X/DAY liquid 10/11/17 Oxycodone HCl/Acetaminophen 1 - 2 tab PO 4X/DAY PRN PRN #50 tab 10/11/17 [Percocet 5-325] Vancomycin IV 750 mg IV Q12H 40 Days #80 vial 10/11/17 Vancomycin IV [Vancomycin] 1,000 mg IV Q12H bag 10/11/17 proMETHazine tablet [Phenergan 25 mg PO 4X/DAY PRN PRN #30 tab 10/11/17 tablet] Smoking Status: Current every day smoker Physical Exam Vital Signs Temp Pulse Resp BP 97.3 F L 62 16 115/56 L 10/18/17 10:02 10/18/17 10:02 10/18/17 10:02 10/18/17 10:02 General: Alert, Oriented x3, Cooperative, No apparent distress HEENT: Atraumatic Lungs: Normal air movement Cardiovascular: Regular rate, Regular Rhythm Assessment/Plan The patient appears to be tolerating hyperbaric oxygen therapy well which will be continued as per the patient's medical plan.
[2017-10-24 10:29] LABS: Erythrocyte Sedimentation Rate 19 mm/hr (0-20)
[2017-10-24 10:31] LABS: Hemoglobin 12.9 g/dl (12.0-15.0); Mean Corp Hgb Conc 32.3 g/gl (32-36); Mean Corpuscular Hgb 28.7 pg (27.0-32.0); Mean Corpuscular Volume 88.9 fL (81-99); Mean Platelet Vol. 12.2 fl (6.2-12.0); Platelet Count 244 K/mm3 (150-450); RBC Distribution Width CV 14.3 % (11.6-14.6); RBC Distribution Width SD 45.8 fl (35.1-43.9); White Blood Count 7.1 K/mm3 (4.4-11.0)
[2017-10-24 10:33] LABS: Scan Indicated on CBC? Y/N NO
[2017-10-24 10:34] LABS: AST(SGOT) 21 U/L (15-37); Alanine Aminotransfer ALT/SGPT 37 U/L (13-56); Albumin, Serum 3.6 g/dL (3.2-5.0); Alkaline Phosphatase 123 U/L (45-117); Anion Gap 10 (5-15); BUN 11 mg/dL (7-18); BUN/Creat Ratio 11.6 RATIO (10-20); Calcium,Total 9.1 mg/dL (8.5-10.1); Chloride 109 mmol/L (98-107); Creatinine, Serum 0.95 mg/dL (0.55-1.02); EST Glomerular Filtration Rate 68 mL/min (>60); Est Glom Filt Rate - Afr Amer 82 mL/min (>60); Estimated Creatinine Clearance 65.94 ml/min; Globulin 3.7 g/dL (2.2-4.2); Glucose 89 mg/dL (74-106); Potassium 3.7 mmol/L (3.5-5.1); Protein, Total 7.3 g/dL (6.4-8.2); Sodium Level 144 mmol/L (136-145)
== END 2017-10-24 23:59 ==
LOC: WC 10:00
PROVIDERS: Family Provider Internal Medicine; PCP Internal Medicine; Visit Provider Surgery
DX: L73.2 Hidradenitis suppurativa (principal); L98.492 Non-pressure chronic ulcer of skin of other sites with fat layer exposed; F17.200 Nicotine dependence, unspecified, uncomplicated; Z79.899 Other long term (current) drug therapy
CPT/HCPCS: 80053; 80202; 85027; 85652; 86140; 99183; G0277

== ENCOUNTER 2017-10-30 09:00 | Outpatient (RCR) | payer MEDICAID, SELFPAY ==
[2017-10-25 01:13] VITALS: BP 105/59; PULSE 84; RESP 18; TEMP 36.4
[2017-10-25 10:00] VITALS: BP 111/78; BP 120/75; PULSE 64; PULSE 74; RESP 16; TEMP 36.2; TEMP 36.3
--- NOTE | 2017-10-25 16:34 | PCM.HBO.PN ---
History of Present Illness Date of Service: 10/25/17 Presenting Chief Complaint: Nonhealing hidradenitis ulcer left inguinal, pubic, and perineal area. ИВАН DE LA VEGA is a 42 year old currently undergoing hyperbaric oxygen therapy for nonhealing hidradenitis of the left inguinal, pubic and perineal area Progress: She has tolerated hyperbaric oxygen therapy well so far Tolerance of hyperbaric oxygen therapy: Hyperbaric oxygen therapy was administered as per the facility's protocol. Procedure was well-tolerated with no complications or complaints. 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) nonhealing hidradenitis ulcer right inguinal area Skin ulcer of multiple sites of vulva (Chronic) nonhealing ulcer right vulval area Smoker (Chronic) Vulval hidradenitis suppurativa (Chronic) Hidradenitis suppurativa (Chronic) right inguinal and medial thigh hidradenitis Allergies/Adverse Reactions: Allergies No Known Allergies Allergy (Verified 10/02/17 09:45) Home Medications: Ambulatory Orders Medication Instructions Recorded Gabapentin [Neurontin] 300 mg PO TID 10/02/17 Diazepam [Valium] 5 mg PO 4X/DAY PRN PRN #30 tab 10/11/17 Docusate Sodium [Colace] 100 mg PO BID capsule 10/11/17 Ensure Enlive 120 ml PO 4X/DAY liquid 10/11/17 Oxycodone HCl/Acetaminophen 1 - 2 tab PO 4X/DAY PRN PRN #50 tab 10/11/17 [Percocet 5-325] Vancomycin IV 750 mg IV Q12H 40 Days #80 vial 10/11/17 Vancomycin IV [Vancomycin] 1,000 mg IV Q12H bag 10/11/17 proMETHazine tablet [Phenergan 25 mg PO 4X/DAY PRN PRN #30 tab 10/11/17 tablet] Smoking Status: Current every day smoker Physical Exam Vital Signs Temp Pulse Resp BP 97.2 F L 74 16 111/78 10/25/17 10:00 10/25/17 10:00 10/25/17 10:00 10/25/17 10:00 General: Cooperative, No apparent distress Lungs: Normal air movement Cardiovascular: Regular rate Assessment/Plan The patient tolerated hyperbaric oxygen therapy well which will continue as per the patient's medical plan.
[2017-10-26 09:59] VITALS: BP 111/64; PULSE 68; RESP 16; TEMP 36.1
--- NOTE | 2017-10-26 11:26 | PCM.HBO.PN ---
History of Present Illness Date of Service: 10/26/17 Presenting Chief Complaint: Nonhealing hidradenitis ulcer left inguinal, pubic, and perineal area. ИВАН DE LA VEGA is a 42 year old currently undergoing hyperbaric oxygen therapy for nonhealing hidradenitis of the left inguinal, pubic and perineal area Progress: She has tolerated hyperbaric oxygen therapy well so far Tolerance of hyperbaric oxygen therapy: Hyperbaric oxygen therapy was administered as per the facility's protocol. Procedure was well-tolerated with no complications or complaints. 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) nonhealing hidradenitis ulcer right inguinal area Skin ulcer of multiple sites of vulva (Chronic) nonhealing ulcer right vulval area Smoker (Chronic) Vulval hidradenitis suppurativa (Chronic) Hidradenitis suppurativa (Chronic) right inguinal and medial thigh hidradenitis Allergies/Adverse Reactions: Allergies No Known Allergies Allergy (Verified 10/02/17 09:45) Home Medications: Ambulatory Orders Medication Instructions Recorded Gabapentin [Neurontin] 300 mg PO TID 10/02/17 Diazepam [Valium] 5 mg PO 4X/DAY PRN PRN #30 tab 10/11/17 Docusate Sodium [Colace] 100 mg PO BID capsule 10/11/17 Ensure Enlive 120 ml PO 4X/DAY liquid 10/11/17 Oxycodone HCl/Acetaminophen 1 - 2 tab PO 4X/DAY PRN PRN #50 tab 10/11/17 [Percocet 5-325] Vancomycin IV 750 mg IV Q12H 40 Days #80 vial 10/11/17 Vancomycin IV [Vancomycin] 1,000 mg IV Q12H bag 10/11/17 proMETHazine tablet [Phenergan 25 mg PO 4X/DAY PRN PRN #30 tab 10/11/17 tablet] Smoking Status: Current every day smoker Physical Exam Vital Signs Temp Pulse Resp BP 97 F L 68 16 111/64 10/26/17 09:59 10/26/17 09:59 10/26/17 09:59 10/26/17 09:59 General: Alert, Oriented x3, Cooperative Cardiovascular: Regular rate Psych/Mental Status: Normal Affect Assessment/Plan The patient tolerated hyperbaric oxygen therapy well which will continue as per the patient's medical plan.
[2017-10-27 09:53] VITALS: BP 122/98; PULSE 86; RESP 16; TEMP 36.3
--- NOTE | 2017-10-27 11:23 | PCM.HBO.PN ---
History of Present Illness Date of Service: 10/27/17 Presenting Chief Complaint: Nonhealing hidradenitis ulcer left inguinal, pubic, and perineal area. ИВАН DE LA VEGA is a 42 year old currently undergoing hyperbaric oxygen therapy for nonhealing hidradenitis of the left inguinal, pubic and perineal area Progress: She has tolerated hyperbaric oxygen therapy well so far Tolerance of hyperbaric oxygen therapy: Hyperbaric oxygen therapy was administered as per the facility's protocol. Procedure was well-tolerated with no complications or complaints. 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) nonhealing hidradenitis ulcer right inguinal area Skin ulcer of multiple sites of vulva (Chronic) nonhealing ulcer right vulval area Smoker (Chronic) Vulval hidradenitis suppurativa (Chronic) Hidradenitis suppurativa (Chronic) right inguinal and medial thigh hidradenitis Allergies/Adverse Reactions: Allergies No Known Allergies Allergy (Verified 10/02/17 09:45) Home Medications: Ambulatory Orders Medication Instructions Recorded Gabapentin [Neurontin] 300 mg PO TID 10/02/17 Diazepam [Valium] 5 mg PO 4X/DAY PRN PRN #30 tab 10/11/17 Docusate Sodium [Colace] 100 mg PO BID capsule 10/11/17 Ensure Enlive 120 ml PO 4X/DAY liquid 10/11/17 Oxycodone HCl/Acetaminophen 1 - 2 tab PO 4X/DAY PRN PRN #50 tab 10/11/17 [Percocet 5-325] Vancomycin IV 750 mg IV Q12H 40 Days #80 vial 10/11/17 Vancomycin IV [Vancomycin] 1,000 mg IV Q12H bag 10/11/17 proMETHazine tablet [Phenergan 25 mg PO 4X/DAY PRN PRN #30 tab 10/11/17 tablet] Smoking Status: Current every day smoker Physical Exam Vital Signs Temp Pulse Resp BP 97.4 F L 86 16 122/98 H 10/27/17 09:53 10/27/17 09:53 10/27/17 09:53 10/27/17 09:53 Assessment/Plan The patient tolerated hyperbaric oxygen therapy well which will continue as per the patient's medical plan.
[2017-10-30 09:02] VITALS: BP 122/59; PULSE 89; RESP 16; TEMP 36.8
--- NOTE | 2017-10-30 17:10 | PCM.WC.PN ---
Type of Wound Date of Service: 10/30/17 Chief Complaint: Nonhealing ulcer right inguinal and vulval area with recent skin grafting. History of Wound: Surgery 10/03/17 - 1. Surgical preparation right inguinal area and vulval area (involving mons pubis and genitocrural area) with excisional debridement nonhealing hidradenitis ulcer (50 cm2). 2. Reconstruction with STSG from lateral abdominal patel (20 cm2) and secondary complex wound closure (30 cm2). Wound care - Silver dressing. Operative culture - Staphylococcus hominis hominis, Methicillin resistant, and Corynebacterium minutissimum, and Corynebacterium amycolatum. She is currently on Vancomycin. Prealbumin from 10/04/17 was 16.3. She takes nutritional supplementation with protein to help the healing process. She states she cannot do HBO anymore because of family issues. Today she denies fever. Her appetite is ok. Progress of Wound: Recent surgery on 10/03/17. - Physical Exam Vital Signs Temp Pulse Resp BP 98.2 F 89 16 122/59 H 10/30/17 09:02 10/30/17 09:02 10/30/17 09:02 10/30/17 09:02 Wound Measurements and Assessment WC - Nurse 1 - General Ulcer Measurement Start: 10/25/17 10:00 Freq: Status: Active Protocol: Activity Type Activity Date Activity User E-Sign Co-Sign Detail Recorded Client Recorded Date Recorded By Document 10/30/17 09:02 TN [id number] 10/30/17 09:18 TN 10/30/17 09:02 Wound Center Nurse 1 [Ulcer Assessment] #2 right Groin/gaudencio area Hidradenitis -Combined with other wound No -Current Size (cm) - Length 15 -Current Size (cm) - Width 2.2 -Current Size (cm) - Depth 0.1 -Total Square Cm 33.0 -Photo Taken No -Epithelialization None Present -Tunneling No -Undermining/Tunneling No -Circular Undermining No -Classification - Thickness Full Thickness without Exposed Support Structure -Change in Wound Grade/Stage No Query Text:If change please identify the Stage/Grade in the comment (ie. S2 G3) -Exudate Type Serosanguineous -Wound Margin Flat & Intact -Granulation Amt Large (67-100%) -Granulation Quality Red -Slough/Fibrin Yes -Necrotic Tissue Type Adherent Slough -Structure Exposed None/Limited to Skin Breakdown -Texture (Gaudencio-wound Skin Appearance) Assessed Scarring -Moisture (Gaudencio-wound Skin Appearance No Abnormality ) Assessed -Color (Gaudencio-wound Skin Appearance) Assessed Erythema -Temperature (Gaudencio-wound Skin No Abnormality Appearance) (Pt Warm) -Tenderness on Palpation (Gaudencio-wound No Skin Appearance) -Ulcer Cleansing Wound Cleanser -Foul Odor after Cleansing No [Edema Assessment] -Lower Limb Edema Present No Debridement Note Post Debridement Measurements #2 Right inguinal and vulval area. Subcutaneous debridement. 15.1 x 2.2 0.1 cm - (33.22 cm2). Hemostasis obtained with gentle pressure. Silver dressing applied. Wound debrided: #2 Right inguinal and vulval area. Laterality: Right Wound Grade/Stage: 2. Type of Debridement: Excisional debridement Anesthesia Used: 4% Lidocaine Solution Depth: Down to and including healthy tissue, in the subcutaneous layer Percentage of wound debrided: 100 Instrument Used: 5mm curette Tissue Removed: subcutanenous tissue. Severity: Fat Layer Exposed Amount of bleeding with debridement: Mild Bleeding Controlled with: Pressure Patient tolerated procedure well Assessment/Plan Assessment: 1. Nonhealing hidradenitis ulcer right inguinal and vulval area. 2. Right inguinal and medial thigh hidradenitis. 3. Right vulval hidradenitis involving the mons pubis and genitocrural area. 4. Smoker. 5. s/p surgical preparation right inguinal area and vulval area (involving mons pubis and genitocrural area) with excisional debridement nonhealing hidradenitis ulcer (50 cm2) and reconstruction with STSG from lateral abdominal patel (20 cm2) and secondary complex wound closure (30 cm2). 6. Early compromise to right inguinal skin graft. 7. Staphylococcus hominis hominis, Methicillin resistant. Plan: Continue Silver dressing changes daily. Skin graft is healing as there is less graft compromise seen. Remaining sutures were removed today without difficulty. She is currently on Vancomycin for Methicillin resistant Staphylococcus hominis hominis. Prealbumin from 10/04/17 was 16.3. Encourage nutritional supplementation with protein to help the healing process. Encouraged the patient to stop smoking as it may have deleterious effects on wound healing. She couldn't continue HBO treatments because of family issues. Followup 2 weeks.
== END 2017-11-24 23:59 ==
LOC: WC 09:00
PROVIDERS: Family Provider Internal Medicine; PCP Internal Medicine; Visit Provider Surgery
DX: L73.2 Hidradenitis suppurativa (principal); L98.499 Non-pressure chronic ulcer of skin of other sites with unspecified severity; F17.200 Nicotine dependence, unspecified, uncomplicated; Z79.899 Other long term (current) drug therapy
CPT/HCPCS: 11042; 11045; 99183; G0277

== ENCOUNTER → 2017-10-31 10:50 | Outpatient (CLI) | payer MEDICAID, SELFPAY ==
[2017-10-31 11:18] LABS: Erythrocyte Sedimentation Rate 18 mm/hr (0-20)
[2017-10-31 11:20] LABS: Hematocrit 37.2 % (37-47); Hemoglobin 12.2 g/dl (12.0-15.0); Mean Corp Hgb Conc 32.8 g/gl (32-36); Mean Corpuscular Hgb 29.8 pg (27.0-32.0); Mean Platelet Vol. 13.2 fl (6.2-12.0); Platelet Count 115 K/mm3 (150-450); RBC Distribution Width CV 14.3 % (11.6-14.6); Red Blood Count 4.09 M/mm3 (4.2-5.4); Scan Indicated on CBC? Y/N NO; White Blood Count 2.9 K/mm3 (4.4-11.0)
[2017-10-31 11:25] LABS: Vancomycin, Trough Level 13.8 ug/mL (5.0-15.0)
[2017-10-31 11:30] LABS: ALB/GLOB Ratio 0.9 RATIO (0.9-2.4); AST(SGOT) 18 U/L (15-37); Alanine Aminotransfer ALT/SGPT 28 U/L (13-56); Albumin, Serum 3.2 g/dL (3.2-5.0); Alkaline Phosphatase 129 U/L (45-117); Anion Gap 7 (5-15); BUN 9 mg/dL (7-18); BUN/Creat Ratio 8.6 RATIO (10-20); Calcium,Total 8.6 mg/dL (8.5-10.1); Chloride 110 mmol/L (98-107); Creatinine, Serum 1.05 mg/dL (0.55-1.02); EST Glomerular Filtration Rate 61 mL/min (>60); Est Glom Filt Rate - Afr Amer 73 mL/min (>60); Globulin 3.5 g/dL (2.2-4.2); Glucose 128 mg/dL (74-106); Potassium 3.8 mmol/L (3.5-5.1); Protein, Total 6.7 g/dL (6.4-8.2); Sodium Level 143 mmol/L (136-145); Total Bilirubin < 0.10 mg/dL (0.20-1.00)
== END ==
PROVIDERS: Family Provider Internal Medicine; PCP Internal Medicine; Visit Provider Surgery
DX: B99.9 Unspecified infectious disease (principal)
CPT/HCPCS: 80053; 80202; 85027; 85652; 86140

== ENCOUNTER → 2017-12-08 12:57 | Outpatient (CLI) | payer MEDICAID, SELFPAY | PROVIDERS: Family Provider Internal Medicine; PCP Internal Medicine; Visit Provider Surgery | DX: L98.492 Non-pressure chronic ulcer of skin of other sites with fat layer exposed (principal); L73.2 Hidradenitis suppurativa; F17.200 Nicotine dependence, unspecified, uncomplicated | CPT/HCPCS: 87070; 87075; 87076; 87077; 87186; 87205 ==

== ENCOUNTER 2019-03-08 15:07 | Inpatient (IN) | payer OTHER, SELFPAY ==
[2019-03-08] VITALS (7 sets, daily range): BP systolic 97–126; BP diastolic 65–87; PULSE 70–115; RESP 16–26; TEMP 36.7–37.2; O2SAT 96–100; BMI 37.8; BMI 34.9
--- NOTE | 2019-03-08 15:21 | EKG12_ITS ---
Test Reason : ABNL PAIN Blood Pressure : / mmHG Vent. Rate : 086 BPM Atrial Rate : 086 BPM P-R Int : 130 ms QRS Dur : 080 ms QT Int : 348 ms P-R-T Axes : 056 010 045 degrees QTc Int : 416 ms Normal sinus rhythm Nonspecific T wave abnormality Abnormal ECG Confirmed by KATIE THAPA ([id number]), general expeditor ANUP ALAMO ([id number]) on 03/13/2019 1:07:03 PM Referred By: CARROLL Confirmed By:KATIE THAPA
--- NOTE | 2019-03-08 15:27 | ED.VIS.GEN ---
History of Present Illness Chief Complaint: Abd Pain Detail of Chief Complaint: Cellulitis not abdominal pain Informant: Patient Onset: Today Context: Sudden Onset Timing: Continuous Quality: Red rash Location: Lower half of abdominal wall Current Severity: Moderate Maximum Severity: Moderate Worsened by: Nothing Relieved by: Nothing Associated Symptoms: Subjective fever with rigors yesterday Narrative: Patient is a 43-year-old woman with history of hydroadenitis supra T. Valentina who has been operated on by Dr. Zacarias Womack. She has not had surgery in the past several months. She states the rash started today. The rash has progressed significantly since she first saw it this morning. She states that the area is tender. 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 She states she does not shave in the groin/genital region. She is not immune suppressed. She has no antibiotic allergies. She denies atraumatic fever, heart murmur, IV drug use or being immune suppressed. She states she was told she had a murmur when she was a child. She does report nausea the vomiting diarrhea. She denies dysuria, frequency, urgency or hematuria. She denies vaginal discharge or bleeding. She denies myalgias, arthralgias or swelling of her joints. Prior similar symptoms: No Recent Illness/Hospitalization: No - Past Medical History (1) Chronic skin ulcer with fat layer exposed Status: Resolved Comment: nonhealing hidradenitis ulcer right inguinal area (2) Hidradenitis suppurativa Status: Resolved Comment: right inguinal and medial thigh hidradenitis (3) Skin ulcer of multiple sites of vulva Status: Resolved Comment: nonhealing ulcer right vulval area (4) Smoker Status: Chronic (5) Vulval hidradenitis suppurativa Status: Resolved Past Medical History - Allergies and Home Meds Allergies/Adverse Reactions: Allergies No Known Allergies Allergy (Verified 03/08/19 15:12) Primary Care Physician: Tiki Allison MD [STAFF PHYSICIAN] - Prior records reviewed: Yes - Documented Surgical History: - - Surgery by Dr. Zacarias Bae as previously documented Lives: Alone Smoking Status: Current every day smoker Alcohol: None Drugs: None - Family History Maternal Family History: Family History (Last Reviewed 03/08/19 @ 17:42 by Jennifer Mixon DO) Mother Alcohol abuse Anxiety FHx: defects Breast cancer Aunt Cervical cancer Ovarian cancer Review of Systems General: Reports: Chills, Fever, Malaise, Subjective. Denies: Sweats, Weight loss Eyes: Denies: Visual changes - bilaterally, Blurred Vision - bilaterally ENT: Denies: Rhinorrhea, Sore throat Cardiovascular: Denies: Chest pain, Palpitations Respiratory: Denies: Dyspnea, Cough, Dyspnea on exertion Gastrointestinal: Reports: Abdominal pain, Nausea. Denies: Vomiting, Diarrhea, Constipation, Melena, Hematochezia Genitourinary: Denies: Dysuria, Hematuria, Frequency Musculoskeletal: Denies: Myalgias, Arthralgias, Neck pain, Back pain, Swelling, Extremity Pain, -, - Skin: Reports: Rash. Denies: Wounds Neurological: Reports: Weakness. Denies: Headache, Parasthesia Endocrine: Denies: Polyuria, Polydipsia Hematologic: Denies: Easy bruising, Easy bleeding Physical Exam Vital Signs/Narrative: Vital Signs Temp Pulse Resp BP Pulse Ox 03/08/19 15:08 98.9 F 115 H 18 126/84 H 96 Inital Vital Signs reviewed: Yes General: Well nourished, Well developed, Obese, Acute Distress Head: Normocephalic, Atraumatic Eyes: Perrl, EOMI. Negative for: Pale conjunctiva, Scleral icterus ENT: No rhinorrhea, TM's clear, Dry mucous membranes Neck: Supple, Nontender, No lymphadenopathy, No JVD Cardiovascular: Regular rhythm, No murmurs, Normal S1, Normal S2, Tachycardia Respiratory: No distress, CTA bilaterally, Chest nontender Abdomen: Soft, Nondistended, Normal bowel sounds, No masses. Negative for: Nontender Rectal: Deferred : - - External genitalia appear normal. Surgical scars noted. Patient has significant tenderness in the left adnexal area and there are shoddy nodes noted. Back: Nontender, Normal Inspection. Negative for: CVA tenderness Extremities: Nontender, No edema Skin: Normal color, No Trauma, Rash - Erythematous warm tender rash from the pubic mons extending into the right and left lower quadrant and left flank region.. Negative for: No rash, Cyanosis, Diaphoresis, Jaundice Neurological: Alert, Oriented x3, Cranial nerves II-XII grossly intact, Normal Strength, Normal Sensation Psychological: Normal affect Diagnostic/Tx/Re-eval Laboratory Results 03/08/19 03/08/19 03/08/19 15:25 15:25 15:25 WBC 9.6 RBC 4.78 Hgb 14.4 Hct 43.5 MCV 91.0 MCH 30.1 MCHC 33.1 RDW Std Deviation 41.9 RDW Coeff of Kole 12.7 Plt Count 134 L MPV 12.0 Immature Gran % (Auto) 0.300 Neut % (Auto) 75.1 H Lymph % (Auto) 17.1 L [place] % (Auto) 6.3 Eos % (Auto) 1.1 Baso % (Auto) 0.1 Absolute Neuts (auto) 7.2 Absolute Lymphs (auto) 1.64 Nucleated RBC % 0 PT 14.4 INR 1.1 APTT 35.8 Sodium 138 Potassium 3.8 Chloride 106 Carbon Dioxide 26.0 Anion Gap 6 BUN 10 Creatinine 1.16 H Estim Creat Clear Calc 53.44 Est GFR (MDRD) Af Amer 65 Est GFR (MDRD) Non-Af 54 L BUN/Creatinine Ratio 8.6 L Glucose 102 Lactic Acid Calcium 8.7 Total Bilirubin 0.40 AST 10 L ALT 22 Alkaline Phosphatase 130 H Total Protein 7.8 Albumin 3.8 Globulin 4.0 Albumin/Globulin Ratio 1.0 03/08/19 15:25 WBC RBC Hgb Hct MCV MCH MCHC RDW Std Deviation RDW Coeff of Kole Plt Count MPV Immature Gran % (Auto) Neut % (Auto) Lymph % (Auto) [place] % (Auto) Eos % (Auto) Baso % (Auto) Absolute Neuts (auto) Absolute Lymphs (auto) Nucleated RBC % PT INR APTT Sodium Potassium Chloride Carbon Dioxide Anion Gap BUN Creatinine Estim Creat Clear Calc Est GFR (MDRD) Af Amer Est GFR (MDRD) Non-Af BUN/Creatinine Ratio Glucose Lactic Acid 1.1 Calcium Total Bilirubin AST ALT Alkaline Phosphatase Total Protein Albumin Globulin Albumin/Globulin Ratio BC and differential unremarkable. Coags are normal. Creatinine is slight elevated 1.16 with a GFR of 54. Lactate is normal. Since patient has 2 sirs criteria with obvious source she has sepsis. Because of the acute onset and progression concerned this may represent a strep infection even though patient's had prior staph infections treated with clindamycin, vancomycin and Zosyn. There is no crepitus or subcutaneous air noted. Do not believe she has necrotizing fasciitis. Because of the extent and progression hospitalist has been paged for admission. - Rhythm Strip Rate: 106 Ectopy: None - EKG Initial EKG Interpretation: Sinus Rhythm - Ventricular rate 86. WV interval 136 ms. QRS duration 80 ms. QT duration 348 ms. There is minimal and ossific ST-T wave changes noted. Prior: Unchanged - Medical Decision Making As signs and symptoms consistent with significant skin infection. Since the area is tender even though there is no crepitus there is a concern for streptococcal infection and possible development of necrotizing fasciitis. There is also concerned that this may be recurrent MRSA infection. Sepsis work-up was undertaken. She was treated with clindamycin, vancomycin and Zosyn. She will require admission. She did receive a fluid bolus of 1 L of normal saline wide open. She is tachycardic. Nurse was asked to repeat temperature since a tympanic was done and not an oral. Dr. boone was informed the patient. He does not believe she would acquire surgery. He states he would not be available this weekend. He informed me that a general surgeon could do debridement and he would be glad to do a closure etc. if needed. This information was relayed to the hospitalist. She will see patient in the ER to determine if appropriate for admission at [facility] ED Disposition - Plan for ED Patient: Disposition: Home or Assisted Living Diagnosis: Vulval cellulitis, Cellulitis, abdominal wall Referrals: Tiki Allison MD [STAFF PHYSICIAN] -
[2019-03-08] MEDS: 0.9% Normal Saline 1,000 ML 1000 ML IV (15:52)
[2019-03-08 15:53] LABS: Absolute Lymphocyte Count 1.64 X10^3/uL (0.83-4.51); Absolute Neutrophil Count 7.2 X10^3/uL (2.0-7.7); Basophil# 0.01 X10^3/uL; Basophil% 0.1 % (0-1); Eosinophil# 0.11 X10^3/uL; Eosinophils% 1.1 % (0-5); Hematocrit 43.5 % (37-47); Hemoglobin 14.4 g/dL (12.0-15.0); Lymphocyte # 1.64 X10^3/ul (4.0); Lymphocyte % 17.1 % (19-41); Mean Corp Hgb Conc 33.1 g/dL (32-36); Mean Corpuscular Hgb 30.1 pg (27.0-32.0); Monocyte% 6.3 % (0-10); NRBC Flagged by Analyzer 0 % (0-5); Neutrophil # 7.18 X10^3/uL (2.7-7.7); Neutrophil % 75.1 % (47-70); Platelet Count 134 K/mm3 (150-450); RBC Distribution Width CV 12.7 % (11.6-14.6); RBC Distribution Width SD 41.9 fl (35.1-43.9); Red Blood Count 4.78 M/mm3 (4.2-5.4); White Blood Count 9.6 K/mm3 (4.4-11.0)
[2019-03-08 16:02] LABS: International Normalized Ratio 1.1; Prothrombin Time (Protime)PT. 14.4 SECONDS (11.7-14.9)
[2019-03-08 16:03] LABS: Partial Thromboplast Time 35.8 Seconds (24.1-36.2)
[2019-03-08 16:07] LABS: Lactic Acid 1.1 mmol/L (0.4-1.9)
[2019-03-08 16:21] LABS: AST(SGOT) 10 U/L (15-37); Alanine Aminotransfer ALT/SGPT 22 U/L (13-56); Albumin, Serum 3.8 g/dL (3.2-5.0); Alkaline Phosphatase 130 U/L (45-117); Anion Gap 6 (5-15); BUN 10 mg/dL (7-18); BUN/Creat Ratio 8.6 RATIO (10-20); Calcium,Total 8.7 mg/dL (8.5-10.1); Chloride 106 mmol/L (98-107); Creatinine, Serum 1.16 mg/dL (0.55-1.02); EST Glomerular Filtration Rate 54 mL/min (>60); Est Glom Filt Rate - Afr Amer 65 mL/min (>60); Estimated Creatinine Clearance 53.44 ml/min; Glucose 102 mg/dL (74-106); Potassium 3.8 mmol/L (3.5-5.1); Protein, Total 7.8 g/dL (6.4-8.2); Sodium Level 138 mmol/L (136-145)
[2019-03-08] MEDS: 0.9% Normal Saline 1,000 ML 250 ML IV (17:16)
--- NOTE | 2019-03-08 17:27 | PCM.HP.STD ---
Problem List (1) Vulval cellulitis Status: Resolved (2) Cellulitis, abdominal wall Status: Acute (3) Skin graft infection Status: Resolved Comment: compromised skin graft infection right inguinal and vulval area (4) Partial loss of skin graft Status: Resolved Comment: compromised skin graft infection right inguinal and vulval area (5) Chronic skin ulcer with fat layer exposed Status: Resolved Comment: nonhealing hidradenitis ulcer right inguinal area (6) Skin ulcer of multiple sites of vulva Status: Resolved Comment: nonhealing ulcer right vulval area (7) Smoker Status: Chronic (8) Non-healing open wound of right groin Status: Resolved (9) Open wound of vulva Status: Resolved (10) Vulval hidradenitis suppurativa Status: Resolved (11) Hidradenitis suppurativa Status: Resolved Comment: right inguinal and medial thigh hidradenitis History of Present Illness Date of Admission: 03/08/19 Chief Complaint: redness of the abdominal wall and subjective fevers and chills The patient is a 43 year old F with a past medical history of hidradenitis suppurativa of the vulva and groin which has resolved, tobacco dependence and obesity who presented to the emergency department at [facility] on 03/08/2019 complaining of subjective fevers/chills and redness of her mons pubis and abdominal wall. Vital signs at presentation to the emergency room were temperature 98.9, pulse rate 115, blood pressure 126/84, oxygen saturation of 96% on room air. White blood cell count was was 14.4 and platelet count was 134,000. Platelets have been intermittently low in the past. Her platelets on October 31, 2017 were 115,000. Lactic acid was 1.1. PT and PTT were within normal limits. BMP was remarkable for a mildly increased creatinine at 1.16. The alkaline phosphatase was mildly increased at 130 the remainder the CMP was unremarkable. UA is pending. No radiology was obtained. She has seen Dr. Patel in the past and has also been seen at the wound care center. She is being admitted to the hospital with a diagnosis of cellulitis of the mons pubis and abdominal wall. She tells me that she has had MRSA in the past. She has had Staphylococcus hominis hominis in the past and it was oxacillin resistant. She has had methicillin sensitive Staphylococcus aureus. Past Medical History Past Medical History (Chronic Problems): Chronic Problems (Last Updated 11/07/17 @ 16:48 by Nneka Arreola) Smoker (Chronic) Medical History: Medical History (Last Updated 11/07/17 @ 16:48 by Nneka Arreola) Anxiety F41.9 Back problem M53.9 Breast lump N63.0 Frequent headaches R51 Multiple allergies Z88.9 Allergies No Known Allergies Allergy (Verified 03/08/19 15:12) Home Medications: Ambulatory Orders Medication Instructions Recorded NK 03/08/19 Surgical History: - - Surgery by Dr. 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 Denies: Weight Change Eyes: Denies: Blurred vision, Vision Change HEENT: Denies: Head Aches, Sinus Congestion, Sinus Drainage, Sore Throat Cardiovascular: Denies: Chest Pain, Edema, Light Headedness, Palpitations Respiratory: Reports: Shortness of Breath. Denies: Cough, Shortness of breath at rest, Sputum production Gastrointestinal: Reports: Abdominal Pain - superficial of the lower abdomen and the left flank. Denies: Nausea, Vomiting Genitourinary: Denies: Dysuria Gynecological: Denies: Breast symptoms, Vaginal discharge Musculoskeletal: Denies: Joint Pain, Joint swelling, Joint Tenderness Skin: Reports: Rash - She has diffuse erythema of the mons pubis and the lower abdominal wall extending around the left flank. Denies: Wounds Neurological: Denies: Focal weakness, Numbness, Tingling, Seizures Psychiatric: Denies: Anxiety, Depression, Homicidal Ideations, Suicidal Ideations Endocrine: Denies: Hx of Irradiation, Hx of Thyroiditis Hematologic/ Lymphatic: Denies: Easy Bruising, Easy Bleeding, Hx of blood clot VTE Information - Inpt Only VTE Present on Admission: No VTE Mechan Device Prophylaxis: None VTE Pharm Prophylaxis ordered?: Yes Patient Problems: Active and Suspected Problems (Last Updated 11/07/17 @ 16:48 by Nneka Arreola) Cellulitis, abdominal wall (Acute) - Physical Exam Vitals/I&O's: Vital Signs Temp Pulse Resp BP Pulse Ox 98.1 F 82 19 H 122/84 H 100 03/08/19 16:02 03/08/19 17:00 03/08/19 17:00 03/08/19 16:21 03/08/19 17:00 Oxygen Flow Rate (L/min) 2 Oxygen Delivery Method Room Air Weight: 220 lb Body Mass Index (BMI) 37.8 Intake and Output for Last 24 Hours 03/06/19 03/07/19 03/08/19 23:59 23:59 23:59 Intake Total 1000 / 1000 Balance 1000 / 1000 General: Alert, Oriented x3, Cooperative, Well developed, Well nourished, - - Looks fatigued HEENT: Atraumatic, PERRLA, EOMI Oral: Moist Mucosa, No Gingival or Mucosal Lesions/ Ulcerations Neck: Supple, No JVD, Negative Carotid Bruits, No Nodes, Trachea Midline Lungs: Clear to auscultation, No rhonchi, No wheeze, No rales, Diminished Cardiovascular: Regular rate, Regular Rhythm, Normal S1, Normal S2, No murmurs, No rub noted, No Gallop Abdomen: Bowel Sounds Present, Soft, Non-Distended, Tender - to palpation, amol around what appears to be a protruding suture on the midline......there is a hard round/thickened denisty in the area but, It is not fluctuant per my exam. Extremities: No clubbing, No cyanosis, No edema, Capillary Refill Less than 3 Seconds, No Calf Tenderness Skin: - - She has redness of the mons pubis which extends up the abdomen and around to the left flank. There are no blisters or ulcerations. There is a small opening in the skin over the midline on the mons pubis that appears to have a small blue suture protruding Musculoskeletal: No Tenderness to Palpation of Joints or Extremities Neurological: Cranial nerves II-XII grossly intact, Neuro grossly intact Psych/Mental Status: Normal Affect, Flat Affect Laboratory Results 03/08/19 15:25: WBC 9.6, RBC 4.78, Hgb 14.4, Hct 43.5, MCV 91.0, MCH 30.1, MCHC 33.1, RDW Std Deviation 41.9, RDW Coeff of Kole 12.7, Plt Count 134 L, MPV 12.0, Immature Gran % (Auto) 0.300, Neut % (Auto) 75.1 H, Lymph % (Auto) 17.1 L, [place] % (Auto) 6.3, Eos % (Auto) 1.1, Baso % (Auto) 0.1, Absolute Neuts (auto) 7.2, Absolute Lymphs (auto) 1.64, Nucleated RBC % 0 03/08/19 15:25: PT 14.4, INR 1.1, APTT 35.8 03/08/19 15:25: Sodium 138, Potassium 3.8, Chloride 106, Carbon Dioxide 26.0, Anion Gap 6, BUN 10, Creatinine 1.16 H, Estim Creat Clear Calc 53.44, Est GFR (MDRD) Af Amer 65, Est GFR (MDRD) Non-Af 54 L, BUN/Creatinine Ratio 8.6 L, Glucose 102, Calcium 8.7, Total Bilirubin 0.40, AST 10 L, ALT 22, Alkaline Phosphatase 130 H, Total Protein 7.8, Albumin 3.8, Globulin 4.0, Albumin/Globulin Ratio 1.0 03/08/19 15:25: Lactic Acid 1.1 Current Medications Sodium Chloride () 1,000 mls @ 250 mls/hr IV .Q4H ZACH Last Admin: 03/08/19 17:16 Dose: 250 mls/hr Documented by: Vancomycin HCl 1,500 mg/ (Sodium Chloride) 530 mls @ 250 mls/hr IV X1 ONE Stop: 03/08/19 18:07 Assessment/Plan All Active Problems (Last Updated 11/07/17 @ 16:48 by Nneka Arreola) Cellulitis, abdominal wall (Acute) Vulval cellulitis (Resolved) Chronic skin ulcer with fat layer exposed (Resolved) Hidradenitis suppurativa (Resolved) Non-healing open wound of right groin (Resolved) Open wound of vulva (Resolved) Partial loss of skin graft (Resolved) Skin graft infection (Resolved) Skin ulcer of multiple sites of vulva (Resolved) Vulval hidradenitis suppurativa (Resolved) Impressions 1. Cellulitis of the mons pubis and the anterior abd wall extending to the left flank. I have a suspicion there may be an abscess over the mons where there is a small blue suture protruding. Started on Zosyn and Vanco in the ED and will continue. Blood cultures have been drawn. Will order an ultrasound of the mons pubis looking for an abscess. 2. Tobacco dependence-smoking cessation consult ordered. An order for a nicotine patch was entered. Will order incentive spirometry while she is in the hospital. Smoking cessation was advised. 3. Thrombocytopenia-more likely than not secondary to infection 4. obesity - weight loss advised. Lovenox for DVT prophylaxis. Code Visit Inpatient E&M: 58014 Init Hosp L2
[2019-03-08 17:29] LABS: Bacteria 0 SEEN /hpf (None Seen); Red Blood Cells-Urine 0 SEEN /hpf (0-5); White Blood Cells 0 SEEN /hpf (0-5)
[2019-03-08 17:30] LABS: Color, Urine Yellow (Yellow); Glucose, Dipstick Normal (Normal); Ketone-Dipstick Negative (Negative); Leukocyte Esterase-Dipstick Negative /ul (Negative); Nitrite-Dipstick Negative (Negative); Occult Blood-Urine Negative /ul (Negative); Protein-Dipstick Negative (Negative); Urine Bilirubin Dipstick Negative (Negative); Urine Clarity Clear (Clear); Urine Urobilinogen Normal (Normal)
[2019-03-08 17:36] LABS: Mucous, Urine 2+ /hpf (<or=2+); Squamous Epithelial Cells - UA 0-5 SEEN /hpf (5-10)
--- NOTE | 2019-03-08 18:42 | US_ITS ---
STUDY: SUPERFICIAL ULTRASOUND - SOFT TISSUES OF THE LOWER ANTERIOR ABDOMINAL AND PELVIC WALL REASON FOR EXAM: Female, 43 years old. Cellulitis TECHNIQUE: A superficial ultrasound was performed with real-time and static carcamo-scale imaging. COMPARISON: None. FINDINGS: There is diffuse inflammatory changes of the subcutaneous fat. There is a tiny thin-walled hypoechoic density measuring 2.2 x 1.8 mm which is nonspecific in etiology but does not have the typical appearance of an abscess. This could represent a sebaceous cyst Sonographic guided fine-needle aspiration would be helpful for further assessment if clinically warranted US/Ext Non Vasc Limited/Soft Tiss IMPRESSION: Diffuse cellulitis and tiny hypoechoic nodule measuring 2.2 x 1.8 mm not typical for abscess however clinical correlation recommended Electronically Signed: Gonzalez Cornejo MD at 20:54 EST , Service support ,
[2019-03-08] MEDS: oxyCODONE 5 MG Tablet 10 MG PO (20:16)
[2019-03-08] MEDS: 0.9% Normal Saline 1,000 ML 100 ML IV (20:16)
[2019-03-08] MEDS: 0.9% Saline Lock 10 ML Syringe IV (20:16)
[2019-03-08] MEDS: Zolpidem Tartrate 5 MG Tablet PO (22:10)
[2019-03-09 04:00] VITALS: BP 96/60; PULSE 81; RESP 16; TEMP 37.2; O2SAT 97
[2019-03-09] MEDS: 0.9% Normal Saline 1,000 ML 100 ML IV ×2 (05:55→14:46)
[2019-03-09] MEDS: oxyCODONE 5 MG Tablet 10 MG PO ×2 (07:31→20:16)
[2019-03-09 08:54] VITALS: BP 96/67; PULSE 70; RESP 18; TEMP 36.8; O2SAT 96
--- NOTE | 2019-03-09 09:35 | PN_ITS ---
Patient Problems: Active and Suspected Problems (Last Updated 11/07/17 @ 16:48 by Nneka Arreola) Cellulitis, abdominal wall (Acute) Vulval cellulitis (Acute) Reason for Visit: Patient seen and examined. She was admitted with a complaint of pain and redness over her suprapubic and lower abdominal area. She has been managed for cellulitis of the lower abdominal and suprapubic area. Of note, she does have a history of hidradenitis supra T. Valentina but states she went underwent surgery last year and has been fine since then. Patient denies any fever or chills, any nausea vomiting, any abdominal pain, any diarrhea vomiting. She states she thinks the redness is getting better and states she wants to go home because to be more comfortable at home. Review systems otherwise negative. Labs and vitals reviewed. Vitals/I&O's: Vital Signs Temp Pulse Resp BP Pulse Ox 98.3 F 70 18 96/67 96 03/09/19 08:54 03/09/19 08:54 03/09/19 08:54 03/09/19 08:54 03/09/19 08:54 Oxygen Flow Rate (L/min) 2 Oxygen Delivery Method Room Air Weight: 204 lb 11.2 oz Body Mass Index (BMI) 34.9 Intake and Output for Last 24 Hours 03/07/19 03/08/19 03/09/19 23:59 23:59 23:59 Intake Total 2736 / 3176 1755 / 1755 Output Total 600 / 600 Balance 2736 / 2876 1155 / 1155 General: Alert, Oriented x3, Cooperative, No apparent distress HEENT: Atraumatic, PERRLA, EOMI, Normocephalic Oral: Moist Mucosa Neck: Supple, No JVD, Negative Carotid Bruits Lungs: Clear to auscultation, Normal air movement Cardiovascular: Regular rate, Regular Rhythm, Normal S1, Normal S2, No murmurs Abdomen: Bowel Sounds Present, Soft, Non Tender, Non-Distended Extremities: No clubbing, No cyanosis, No edema, Capillary Refill Less than 3 Seconds Skin: - - Extensive erythema and minimal tenderness over suprapubic region and infraumbilical region. No overt swelling. Healed scars from hidradenitis supra T right suprapubic region. Musculoskeletal: No Tenderness to Palpation of Joints or Extremities Lymphatic: No Cervical, Supraclavicular, or Inguinal Adenopathy Neurological: Cranial nerves II-XII grossly intact, Neuro grossly intact, Motor Exam 5/5 strength throughout Psych/Mental Status: Normal Affect, Appropriate, Alert and oriented to time, place, person, mood and affect Laboratory Results 03/08/19 15:25: WBC 9.6, RBC 4.78, Hgb 14.4, Hct 43.5, MCV 91.0, MCH 30.1, MCHC 33.1, RDW Std Deviation 41.9, RDW Coeff of Kole 12.7, Plt Count 134 L, MPV 12.0, Immature Gran % (Auto) 0.300, Neut % (Auto) 75.1 H, Lymph % (Auto) 17.1 L, [place] % (Auto) 6.3, Eos % (Auto) 1.1, Baso % (Auto) 0.1, Absolute Neuts (auto) 7.2, Absolute Lymphs (auto) 1.64, Nucleated RBC % 0 03/08/19 15:25: PT 14.4, INR 1.1, APTT 35.8 03/08/19 15:25: Sodium 138, Potassium 3.8, Chloride 106, Carbon Dioxide 26.0, Anion Gap 6, BUN 10, Creatinine 1.16 H, Estim Creat Clear Calc 53.44, Est GFR (MDRD) Af Amer 65, Est GFR (MDRD) Non-Af 54 L, BUN/Creatinine Ratio 8.6 L, Glucose 102, Calcium 8.7, Total Bilirubin 0.40, AST 10 L, ALT 22, Alkaline Phosphatase 130 H, Total Protein 7.8, Albumin 3.8, Globulin 4.0, [place] min/Globulin Ratio 1.0 03/08/19 15:25: Lactic Acid 1.1 03/08/19 17:20: Urine Color Yellow, Urine Clarity Clear, Urine pH 5.0, Ur Specific Brant 1.010, Urine Protein Negative, Urine Glucose (UA) Normal, Urine Ketones Negative, Urine Occult Blood Negative, Urine Nitrite Negative, Urine Bilirubin Negative, Urine Urobilinogen Normal, Ur Leukocyte Esterase Negative, Urine RBC 0 SEEN, Urine WBC 0 SEEN, Ur Squamous Epith Cells 0-5 SEEN, Urine Bacteria 0 SEEN, Urine Mucus 2+ Current Medications Acetaminophen (Tylenol) 650 mg PO Q6H PRN PRN PRN Reason: Pain Score 1-10/10 Al Hydroxide/Mg Hydroxide (Mylanta Ii) 30 ml PO Q6H PRN PRN PRN Reason: Gastric Burning Enoxaparin Sodium (Lovenox) 40 mg SC DAILY [facility] Sodium Chloride () 1,000 mls @ 100 mls/hr IV .Q10H [facility] Last Admin: 03/09/19 05:55 Dose: 100 mls/hr Documented by: Piperacillin Sod/Tazobactam (Sod 3.375 gm/ Sodium Chloride) 50 mls @ 12.5 mls/hr IV Q8 ZACH Last Admin: 03/09/19 05:54 Dose: 12.5 mls/hr Documented by: Ibuprofen (Motrin) 600 mg PO Q6H PRN PRN PRN Reason: pain 1-4 Ondansetron HCl (Zofran) 4 mg IV Q8H PRN PRN PRN Reason: NAUSEA/VOMITING Oxycodone HCl (Oxyir) 10 mg PO Q4H PRN PRN PRN Reason: Pain Score > 4 Last Admin: 03/09/19 07:31 Dose: 10 mg Documented by: Senna/Docusate Sodium (Senokot-S, Eulalia-Colace) 2 tablet PO BID [facility] Last Admin: 03/09/19 08:58 Dose: Not Given Documented by: Sodium Chloride () 10 - 40 ml IV UD PRN PRN Reason: SALINE FLUSH Last Admin: 03/08/19 20:16 Dose: 10 ml Documented by: Zolpidem Tartrate (Ambien (Generic)) 5 mg PO QHS PRN PRN PRN Reason: INSOMNIA Last Admin: 03/08/19 22:10 Dose: 5 mg Documented by: STROKE Vital Signs/Narrative: Vital Signs Temp Pulse Resp BP Pulse Ox 03/09/19 08:54 98.3 F 70 18 96/67 96 Medical Necessity - Tobacco Use Smoking Status: Current every day smoker Tobacco Use: Cigarettes - 1 pack/day for 30 years Assessment/Plan All Active Problems (Last Updated 11/07/17 @ 16:48 by Nneka Arreola) Cellulitis, abdominal wall (Acute) Vulval cellulitis (Acute) Vulval cellulitis (Resolved) Chronic skin ulcer with fat layer exposed (Resolved) Hidradenitis suppurativa (Resolved) Non-healing open wound of right groin (Resolved) Open wound of vulva (Resolved) Partial loss of skin graft (Resolved) Skin graft infection (Resolved) Skin ulcer of multiple sites of vulva (Resolved) Vulval hidradenitis suppurativa (Resolved) 1.Cellulitis of the subprapubic and infra-umbilical abdominal wall * patient feels better today and actually wants to go home * still has extensive redness and minimal pain over suprapubic and of abdominal area. Redness has stayed within margins demarcated on admission yesterday. * On IV vancomycin and Zosyn. Blood cultures pending. * Ultrasound of the abdominal wall was negative for abscess but showed diffuse cellulitis and tiny hypoechoic nodule measuring about 2.2 x 1.8 mm not typical for abscess and could represent a sebaceous cyst. Will monitor for now. * 2. Thrombocytopenia: * Platelet 134 on admission. * Will recheck today and see trend. * Does have a history of thrombocytopenia as platelets on 10/31/2017 was 115. 3. Nicotine dependence: Counseled to quit. Nicotine patch. DVT prophylaxis: Lovenox Code Visit Inpatient E&M: 09231 Subs Hosp L2
[2019-03-09 10:18] LABS: Absolute Lymphocyte Count 1.33 X10^3/uL (0.83-4.51); Absolute Neutrophil Count 4.7 X10^3/uL (2.0-7.7); Basophil# 0.02 X10^3/uL; Basophil% 0.3 % (0-1); Eosinophil# 0.12 X10^3/uL; Eosinophils% 1.8 % (0-5); Hematocrit 36.6 % (37-47); Hemoglobin 11.6 g/dL (12.0-15.0); Lymphocyte # 1.33 X10^3/ul (4.0); Lymphocyte % 19.6 % (19-41); Mean Corp Hgb Conc 31.7 g/dL (32-36); Mean Corpuscular Hgb 29.4 pg (27.0-32.0); Mean Corpuscular Volume 92.9 fL (81-99); Mean Platelet Vol. 11.8 fl (6.2-12.0); Monocyte# 0.59 X10^3/uL; Monocyte% 8.7 % (0-10); NRBC Flagged by Analyzer 0 % (0-5); Neutrophil % 69.3 % (47-70); Platelet Count 117 K/mm3 (150-450); RBC Distribution Width CV 12.7 % (11.6-14.6); RBC Distribution Width SD 43.8 fl (35.1-43.9); Red Blood Count 3.94 M/mm3 (4.2-5.4); White Blood Count 6.8 K/mm3 (4.4-11.0)
[2019-03-09 10:57] LABS: Anion Gap 3 (5-15); BUN 8 mg/dL (7-18); BUN/Creat Ratio 7.2 RATIO (10-20); Calcium,Total 7.8 mg/dL (8.5-10.1); Chloride 113 mmol/L (98-107); Creatinine, Serum 1.11 mg/dL (0.55-1.02); EST Glomerular Filtration Rate 57 mL/min (>60); Est Glom Filt Rate - Afr Amer 68 mL/min (>60); Estimated Creatinine Clearance 55.85 ml/min; Glucose 96 mg/dL (74-106); Potassium 4.5 mmol/L (3.5-5.1); Sodium Level 141 mmol/L (136-145)
[2019-03-09] MEDS: Acetaminophen 325 MG Tablet 650 MG PO ×2 (11:06→22:19)
[2019-03-09] MEDS: Enoxaparin 40 MG/0.4 ML Syringe SC (11:06)
[2019-03-09 11:40] VITALS: O2SAT 98
[2019-03-09] MEDS: DiphenhydrAMINE 25 MG Capsule PO ×2 (14:43→22:17)
[2019-03-09] MEDS: Ibuprofen 400 MG Tablet 600 MG PO (14:43)
[2019-03-09 14:47] VITALS: BP 115/73; PULSE 56; RESP 16; TEMP 36.4; O2SAT 97
--- NOTE | 2019-03-09 15:15 | CASEMGMT ---
RN CM Assessment Introduced role of RN CM to patient.? Patient is alert, oriented and able?to participate in RN CM Assessment. ?Care providers, pharmacy, and demographics verified. Presentation: Subjective fever/chills and redness of mons pubis and abd wall Admit Dx: Cellulitis of the suprapubic area and the Left flank Re-Admit: No Barriers/Issues: None. Patient states that she does not have a PCP, offered PCP list and declined, states that she will find one. PCP: None Specialists: Surg- Dr Patel (Last seen last year) Preferred Pharmacy: [facility], [place] Insurance: Commercial ([facility]) Rx Benefit:?Yes ?LNOK: Jonah Jimenez LW/HPOA: None, declines offered information and services this admission. Made aware can return as an Outpatient to complete with dept. Living Arrangements:? Lives with her in a [place]ail[place], 2 steps to enter home ADL?s: Independent with ambulation and ADLs Transportation: Patient drives, drove self to hospital DME: None HHC: Past, cannot recall agency, states was in [place] but thinks they closed. SNF: None Goal: Home and does and think will have any needs. Denies any issues, concerns or questions with DC planning at this time. Aware CM remains available for any emerging needs. DC PLAN: Home with no anticipated needs identified at this time. THOM Willard
[2019-03-09 20:09] VITALS: BP 107/74; PULSE 69; RESP 18; TEMP 36.3; O2SAT 95
[2019-03-09 20:28] VITALS: PULSE 69; RESP 18; O2SAT 95
[2019-03-09] MEDS: Zolpidem Tartrate 5 MG Tablet PO (22:17)
[2019-03-10] MEDS: 0.9% Normal Saline 1,000 ML 100 ML IV (01:19)
[2019-03-10 01:53] VITALS: BP 104/45; PULSE 60; RESP 16; TEMP 36.4; O2SAT 96
[2019-03-10 01:54] VITALS: PULSE 60
[2019-03-10] MEDS: Ibuprofen 400 MG Tablet 600 MG PO (06:15)
[2019-03-10 06:22] LABS: Absolute Lymphocyte Count 1.51 X10^3/uL (0.83-4.51); Absolute Neutrophil Count 2.3 X10^3/uL (2.0-7.7); Basophil# 0.01 X10^3/uL; Basophil% 0.2 % (0-1); Eosinophil# 0.15 X10^3/uL; Eosinophils% 3.4 % (0-5); Hematocrit 35.3 % (37-47); Hemoglobin 11.1 g/dL (12.0-15.0); Lymphocyte # 1.51 X10^3/ul (4.0); Lymphocyte % 34.5 % (19-41); Mean Corp Hgb Conc 31.4 g/dL (32-36); Mean Corpuscular Hgb 29.8 pg (27.0-32.0); Mean Corpuscular Volume 94.6 fL (81-99); Mean Platelet Vol. 12.5 fl (6.2-12.0); Monocyte# 0.41 X10^3/uL; Monocyte% 9.4 % (0-10); NRBC Flagged by Analyzer 0 % (0-5); Neutrophil # 2.29 X10^3/uL (2.7-7.7); Neutrophil % 52.3 % (47-70); Platelet Count 113 K/mm3 (150-450); RBC Distribution Width CV 12.8 % (11.6-14.6); RBC Distribution Width SD 44.4 fl (35.1-43.9); Red Blood Count 3.73 M/mm3 (4.2-5.4); White Blood Count 4.4 K/mm3 (4.4-11.0)
[2019-03-10 07:04] LABS: Anion Gap 1 (5-15); BUN 9 mg/dL (7-18); BUN/Creat Ratio 8.9 RATIO (10-20); Calcium,Total 7.5 mg/dL (8.5-10.1); Chloride 118 mmol/L (98-107); Creatinine, Serum 1.01 mg/dL (0.55-1.02); EST Glomerular Filtration Rate 63 mL/min (>60); Est Glom Filt Rate - Afr Amer 76 mL/min (>60); Estimated Creatinine Clearance 61.38 ml/min; Glucose 89 mg/dL (74-106); Potassium 4.6 mmol/L (3.5-5.1); Sodium Level 144 mmol/L (136-145)
[2019-03-10 09:12] VITALS: BP 121/83; PULSE 64; RESP 16; TEMP 36.7; O2SAT 100
--- NOTE | 2019-03-10 10:35 | DCINST_ITS ---
- Discharge Diagnoses Current Active Problems: Current Active and Chronic Problems (Last Updated 11/07/17 @ 16:48 by Nneka Arreola) Cellulitis, abdominal wall (Acute) Vulval cellulitis (Acute) You will use the following diet at home:: Cardiac Your food should be the consistency of: Regular Your liquids should be the consistency of: Regular/Thin Discharge Activity: Return to Normal Activity Weight Bearing Status: Weight bearing as tolerated Call your doctor if you observe: Fever of 101 or Higher, - - worsening redness, pain and swelling over lower abdominal area Instructions: Recognizing and Treating Wound Infection, Cellulitis, Cellulitis - Causes,Symptoms,Treating Allergies/Adverse Reactions: Allergies No Known Allergies Allergy (Verified 03/08/19 15:12) Medications to take at Discharge Cephalexin [Keflex] 500 mg PO Q6 10 Days #40 cap 03/10/19 The following prescriptions were given: Cephalexin [Keflex] 500 mg PO Q6 10 Days #40 cap Transmission Status: Pending to [id number] Primary Care Physician: Tiki Allison MD [STAFF PHYSICIAN] - Please follow up with your Primary Care Physician in: one week Test Results: Test results from this visit will be discussed in further detail at your follow- up appointment, if applicable.
--- NOTE | 2019-03-10 10:37 | DS.PCM_ITS ---
Discharge Date and Diagnosis Date of Admission: 03/08/19 Date of Discharge: 03/10/19 - Primary Discharge Diagnosis Active and Suspected Problems (Last Updated 11/07/17 @ 16:48 by Nneka Arreola) Cellulitis, abdominal wall (Acute) Vulval cellulitis (Acute) - Secondary Discharge Diagnosis Chronic Problems (Last Updated 11/07/17 @ 16:48 by Nneka Arreola) Smoker (Chronic) Hospital Course and Treatment Imaging Results: Diagnostic Data Soft Tissue Ultrasound 03/08/19 18:42 IMPRESSION: Diffuse cellulitis and tiny hypoechoic nodule measuring 2.2 x 1.8 mm not typical for abscess however clinical correlation recommended Electronically Signed: Gonzalez Cornejo MD at 20:54 EST , Service support , Operations: None Procedures: None Summary of Care Provided: The patient is a 43 year old F with a past medical history of hidradenitis separative of the vulva and groin which is resolved after she underwent surgery by plastic surgery as well as nicotine dependence. SHe was admitted via the ED with a complaint of redness, swelling and tenderness over her lower abdomen and mons pubis. She had associated fever and chills. On admission she was found to be tachycardic and white cell count was also 9.6. She had mildly low platelets of around 1 34,000. Lactic acid was 1.1. She was admitted and managed for cellulitis of the mons pubis and abdominal wall. Blood cultures were ordered and she was started on IV vancomycin and Zosyn. Patient's redness improved gradually. Soft tissue ultrasound of the abdominal wall showed diffuse cellulitis and tiny hypoechoic nodule measuring about 2.2 x 1.8 cm not typical for an abscess. Redness and swelling improved significantly. Patient remained stable and wanted to be discharged on 03/09/2019. However she was convinced to stay 1 more day for IV antibiotics. Blood cultures came back negative. She was discharged home on 03/10/2019 with a prescription for p.o. Keflex for 10 days. She is follow-up with her primary care doctor within 1 week. Patient seen and examined prior to discharge. She had no complaints and felt well. Review of systems otherwise negative. Labs and vitals reviewed. Home medication reviewed and reconciled. o/e: Vital Signs Height 5 ft 4.17 in Weight: 204 lb 11.2 oz Weight in Pounds 204.7 lbs Pulse Ox 100 Temperature 98.1 F Pulse Rate 64 Respiratory Rate 16 Blood Pressure [2nd BP] 103/67 Blood Pressure 121/83 Blood Pressure Position [2nd Semi-Fowlers BP] Blood Pressure Position Semi-Fowlers General: Alert, Oriented x3, Cooperative, No apparent distress HEENT: Atraumatic, PERRLA, EOMI, Normocephalic Oral: Moist Mucosa Neck: Supple, No JVD, Negative Carotid Bruits Lungs: Clear to auscultation, Normal air movement Cardiovascular: Regular rate, Regular Rhythm, Normal S1, Normal S2, No murmurs Abdomen: Bowel Sounds Present, Soft, Non Tender, Non-Distended Extremities: No clubbing, No cyanosis, No edema, Capillary Refill Less than 3 Seconds Skin: - - Extensive erythema and minimal tenderness over suprapubic region and infraumbilical region has improved moderately. No overt swelling. Healed scars from hidradenitis supra T right suprapubic region. Musculoskeletal: No Tenderness to Palpation of Joints or Extremities Lymphatic: No Cervical, Supraclavicular, or Inguinal Adenopathy Neurological: Cranial nerves II-XII grossly intact, Neuro grossly intact, Motor Exam 5/5 strength throughout Psych/Mental Status: Normal Affect, Appropriate, Alert and oriented to time, place, person, mood and affect Plan is as above. Patient stated that she did not have a PCP though on file, her PCP is Dr. Tiki Allison. She stated she was looking for a new PCP. Patient was given contact number for Dr. Max Zarate of [facility] primary care to establish PCP contact. - Physical Exam Vitals/I&O's: Vital Signs Temp Pulse Resp BP Pulse Ox 98.1 F 64 16 121/83 H 100 03/10/19 09:12 03/10/19 09:12 03/10/19 09:12 03/10/19 09:12 03/10/19 09:12 Oxygen Flow Rate (L/min) 2 Oxygen Delivery Method Room Air Weight: 204 lb 11.2 oz Body Mass Index (BMI) 34.9 Intake and Output for Last 24 Hours 03/08/19 03/09/19 03/10/19 23:59 23:59 23:59 Intake Total 2736 / 3176 3040.00 / 3480.00 1218.33 / 1218.33 Output Total 900 / 1050 600 / 600 Balance 2736 / 2876 2140.00 / 2430.00 618.33 / 618.33 Laboratory Results 03/09/19 10:04: Sodium 141, Potassium 4.5, Chloride 113 H, Carbon Dioxide 25.0, Anion Gap 3 L, BUN 8, Creatinine 1.11 H, Estim Creat Clear Calc 55.85, Est GFR (MDRD) Af Amer 68, Est GFR (MDRD) Non-Af 57 L, BUN/Creatinine Ratio 7.2 L, Glucose 96, Calcium 7.8 L 03/10/19 04:45: WBC 4.4, RBC 3.73 L, Hgb 11.1 L, Hct 35.3 L, MCV 94.6, MCH 29.8, MCHC 31.4 L, RDW Std Deviation 44.4 H, RDW Coeff of Kole 12.8, Plt Count 113 L, MPV 12.5 H, Immature Gran % (Auto) 0.200, Neut % (Auto) 52.3, Lymph % (Auto) 34.5, Pierce % (Auto) 9.4, Eos % (Auto) 3.4, Baso % (Auto) 0.2, Absolute Neuts (auto) 2.3, Absolute Lymphs (auto) 1.51, Nucleated RBC % 0 03/10/19 04:45: Sodium 144, Potassium 4.6, Chloride 118 H, Carbon Dioxide 25.0, Anion Gap 1 L, BUN 9, Creatinine 1.01, Estim Creat Clear Calc 61.38, Est GFR (MDRD) Af Amer 76, Est GFR (MDRD) Non-Af 63, BUN/Creatinine Ratio 8.9 L, Glucose 89, Calcium 7.5 L Current Medications Acetaminophen (Tylenol) 650 mg PO Q6H PRN PRN PRN Reason: Pain Score 1-10/10 Last Admin: 03/09/19 22:19 Dose: 650 mg Documented by: Al Hydroxide/Mg Hydroxide (Mylanta Ii) 30 ml PO Q6H PRN PRN PRN Reason: Gastric Burning Diphenhydramine HCl (Benadryl) 25 mg PO BID PRN PRN PRN Reason: ITCHING Last Admin: 03/09/19 22:17 Dose: 25 mg Documented by: Enoxaparin Sodium (Lovenox) 40 mg SC DAILY [facility] Last Admin: 03/10/19 09:17 Dose: Not Given Documented by: Sodium Chloride () 1,000 mls @ 100 mls/hr IV .Q10H [facility] Last Admin: 03/10/19 01:19 Dose: 100 mls/hr Documented by: Piperacillin Sod/Tazobactam (Sod 3.375 gm/ Sodium Chloride) 50 mls @ 12.5 mls/hr IV Q8 [facility] Last Admin: 03/10/19 06:12 Dose: 12.5 mls/hr Documented by: Ibuprofen (Motrin) 600 mg PO Q6H PRN PRN PRN Reason: pain 1-4 Last Admin: 03/10/19 06:15 Dose: 600 mg Documented by: Ondansetron HCl (Zofran) 4 mg IV Q8H PRN PRN PRN Reason: NAUSEA/VOMITING Oxycodone HCl (Oxyir) 10 mg PO Q4H PRN PRN PRN Reason: Pain Score > 4 Last Admin: 03/09/19 20:16 Dose: 10 mg Documented by: Senna/Docusate Sodium (Senokot-S, Eulalia-Colace) 2 tablet PO BID [facility] Last Admin: 03/10/19 09:17 Dose: Not Given Documented by: Sodium Chloride () 10 - 40 ml IV UD PRN PRN Reason: SALINE FLUSH Last Admin: 03/08/19 20:16 Dose: 10 ml Documented by: Zolpidem Tartrate (Ambien (Generic)) 5 mg PO QHS PRN PRN PRN Reason: INSOMNIA Last Admin: 03/09/19 22:17 Dose: 5 mg Documented by: Discharge Diet: No Restrictions Discharge Activity: Return to Normal Activity Weight Bearing Status: Weight bearing as tolerated Call your doctor if you observe: Fever of 101 or Higher, - - worsening redness, pain and swelling over lower abdominal area Home Medications: Medications to take at Discharge Cephalexin [Keflex] 500 mg PO Q6 10 Days #40 cap 03/10/19 Following Prescrptions Were Given to Patient: Cephalexin [Keflex] 500 mg PO Q6 10 Days #40 cap Transmission Status: Received by [facility]/pharmacy #[id number] Primary Care Physician: Tiki Allison MD [STAFF PHYSICIAN] - Please follow up with your Primary Care Physician in: one week Patient Instructions: Recognizing and Treating Wound Infection, Cellulitis, Cellulitis - Causes,Symptoms,Treating Disposition: Home Minutes spent on discharge:: 35 Patient Condition:: Stable Medical Necessity - Tobacco Use Smoking Status: Current every day smoker Tobacco Use: Cigarettes Meaningful Use Info Meaningful Use Diagnoses (Choose all that apply): None applicable Code Visit Inpatient E&M: 35111 Disch Hosp
[2019-03-10] MEDS: DiphenhydrAMINE 25 MG Capsule PO (10:54)
--- NOTE | 2019-03-10 16:17 | NURSING ---
called micro prior to d/c-- notified that cultures are currently negative but are not finalized yet. Dr. Connor notified of same and pt d/c'ed per her request.
== END 2019-03-10 11:00 | disposition home or self-care (01) | DRG 603 ==
LOC: ED 16:40 → MS3 17:57
PROVIDERS: Admitting Provider Internal Medicine; Emergency Provider Emergency Medicine; Visit Provider Student in an Organized Health Care Education/Training Program
DX: L03.311 Cellulitis of abdominal wall (principal); N76.2 Acute vulvitis; F17.210 Nicotine dependence, cigarettes, uncomplicated; E66.9 Obesity, unspecified; D69.6 Thrombocytopenia, unspecified; Z68.34 Body mass index [BMI] 34.0-34.9, adult
CPT/HCPCS: 36415; 76882; 80048; 80053; 81001; 83605; 85025; 85610; 85730; 87040; 93005; 99251; 99285; 99406; J7030; J7040; J7050; A4216; G0463

== ENCOUNTER 2020-10-06 15:41 | Emergency (ER) | payer SELFPAY ==
[2020-10-06 15:41] VITALS: BP 126/73; PULSE 86; RESP 18; TEMP 35.8; O2SAT 97; BMI 33.5
[2020-10-06 15:59] VITALS: RESP 18
--- NOTE | 2020-10-06 16:35 | EX.ED.DYSGE1 ---
HPI History of Present Illness Chief Complaint: Bite Informant: patient Narrative Narrative: Patient is a 45-year-old previously healthy female who presents to the emergency department for cat bite to bilateral upper extremities. She states that she was trying to rescue a kitten whenever it bit her. This occurred last night around 8 PM. She states she woke up and her finger started to swell. The bite sites have become painful. She denies any fevers or chills. No streaking up the arms. She denies any loss of sensation in her extremities or fingers. No other injury noted. She is often nauseous or vomiting. She is not anything for this. Patient states that she does watch the cats regularly and they always act appropriately. She denies any concern for rabies. [facility] Medical History (Updated 10/06/20 @ 16:[address] Quirino Matute DO) Anxiety Back problem Breast lump Frequent headaches Multiple allergies Home Medications NK 10/06/20 [History Last Taken Unknown] amoxicillin-pot clavulanate [Augmentin] 1 tab PO BID 7 Days #14 tab 10/06/20 [Rx Last Taken Unknown] Allergy/AdvReac Type Severity Reaction Status Date / Time No Known Allergies Allergy Verified 10/06/20 15:41 Family History Mother Alcohol abuse Anxiety FHx: defects Breast cancer Aunt Cervical cancer Ovarian cancer Social History Smoking Status: Current every day smoker tobacco type: cigarettes alcohol intake: current substance use type: does not use ROS ROS ED Constitutional Constitutional ED: Denies chills or fever(s) Eyes Eyes: Denies change in vision ENT ENT ED: Denies epistaxis or rhinorrhea Cardiovascular Cardiovascular: Denies chest pain Respiratory/Chest Respiratory/Chest: Denies cough or dyspnea Gastrointestinal Gastrointestinal: Denies abdominal pain, nausea or vomiting Musculoskeletal Musculoskeletal: Denies back pain or neck pain Integumentary Reports Abrasions and rash Neurologic Neurologic: Denies dizziness, headache(s) or weakness EXAM Physical Exam Const Vital Signs: 10/06/20 15:41 10/06/20 15:59 Temperature 96.5 F L Temperature Source Temporal Pulse Rate 86 Respiratory Rate 18 18 Blood Pressure 126/73 H Blood Pressure Mean 90 Pulse Ox 97 Oxygen Delivery Method Room Air Positive well nourished and well developed General Appearance ED: well developed and NAD HEENT Reports normocephalic, head/scalp atraumatic and moist mucous membranes Eyes PERRL and EOMs intact bilaterally Neck supple General: Negative for tenderness Chest Wall inspection of chest normal Resp normal respiratory effort and clear to auscultation bilaterally Auscultation: Negative for rales, rhonchi or wheezes Cardio regular rate, regular rhythm and no murmurs Back/Spine no CVA tenderness Extremity Extremity Narrative: Multiple bite abdul to hands bilaterally and the right forearm. Her left index finger is mildly swollen. She has decent range of motion of it. She is not held in flexion. No pain with passive range of motion of the finger. Brisk capillary refill. No obvious abscess present any bite abdul. No streaking up the arm. Neuro no sensory deficits noted Sensorium / Orientation: alert Motor Exam: strength 5/5 throughout Psych mental status grossly normal Skin no rashes or lesions noted MDM MDM MDM Narrative Medical decision making narrative: Patient presents the ED for cat bite to bilateral upper extremities. I did recommend rabies prophylaxis but patient is declining. She states that she does watch the capsule time and the act appropriately. Risk associated with this were discussed with her. This time will put her on antibiotics with Augmentin. She is given first dose here and given a prescription. She is to monitor for any significant swelling to her finger or inability to move the finger. If she develops any streaking up the arms or systemic symptoms she needs to return back to the emergency department immediately. She understands and is agreeable this plan. Discharged home in stable condition. All questions were answered. Discharge Plan Triage Chief Complaint: Bite ED Provider: Quirino Matute Dx/Rx/DC Orders Clinical Impression: Cat bite Instructions: ED Cat Bite Prescriptions: New amoxicillin-pot clavulanate [Augmentin] 875-125 mg tablet 1 tab PO BID 7 Days Qty: 14 RF: 0 No Action NK RF: 0 Primary Care Provider: Care Physician,No Primary Referrals: Care Physician,No Primary [Primary Care Provider] - 3-5 Days Disposition Disposition: Home, Self Care
[2020-10-06] MEDS: Amox/Clavulanate 875 MG Tablet PO (16:54)
== END 2020-10-06 16:55 | disposition home or self-care (01) ==
LOC: ED 16:43
PROVIDERS: Emergency Provider Emergency Medicine
DX: S61.251A Open bite of left index finger without damage to nail, initial encounter (principal); S61.452A Open bite of left hand, initial encounter; S61.451A Open bite of right hand, initial encounter; S51.851A Open bite of right forearm, initial encounter; F17.210 Nicotine dependence, cigarettes, uncomplicated; W55.01XA Bitten by cat, initial encounter; Y93.89 Activity, other specified; Y92.009 Unspecified place in unspecified non-institutional (private) residence as the place of occurrence of the external cause; Y99.8 Other external cause status
CPT/HCPCS: 99283

== ENCOUNTER 2021-12-02 16:24 | Emergency (ER) | payer SELFPAY ==
[2021-12-02 16:25] VITALS: BP 126/102; PULSE 86; RESP 16; TEMP 36.1; O2SAT 97; BMI 35.8
--- NOTE | 2021-12-02 16:36 | EX.ED.UPPERE ---
HPI History of Present Illness Chief Complaint: Laceration Detail of Chief Complaint: Laceration left long finger Informant: patient Narrative Narrative: Patient presents the emergency department complaint of laceration to the left middle finger that occurred prior arrival in the emergency department. Patient cut her finger with a knife accidentally. She is right-hand dominant. She is unsure of her last tetanus. Tetanus Immunization: Unknown [facility] Medical History (Updated 12/02/21 @ 16:[address] Luz Pryor, DO) Anxiety Back problem Breast lump Frequent headaches Multiple allergies Home Medications NK 10/06/20 [History Last Taken Unknown] amoxicillin 875 mg-potassium clavulanate 125 mg tablet (Augmentin) 1 tab PO BID 7 days #14 tabs 10/06/20 [Rx Last Taken Unknown] Allergy/AdvReac Type Severity Reaction Status Date / Time No Known Allergies Allergy Verified 12/02/21 16:24 Family History (System 11/24/20 @ 15:22 by Jerry Soliz) Mother Alcohol abuse Anxiety FHx: defects Breast cancer Aunt Cervical cancer Ovarian cancer Social History (System 11/24/20 @ 15:22 by Jerry Soliz) Smoking Status: Current every day smoker tobacco type: cigarettes alcohol intake: current substance use type: does not use ROS ROS ED Review of Systems ROS Unobtainable: other Constitutional Constitutional ED: Reports lethargy; Denies chills, fever(s), sweats or weight loss Eyes Eyes: Denies blurry vision, change in vision or diplopia ENT ENT ED: Denies rhinorrhea or sore throat Cardiovascular Cardiovascular: Denies chest pain, orthopnea or racing heartbeat Respiratory/Chest Respiratory/Chest: Denies cough, dyspnea, dyspnea on exertion, orthopnea or sputum Gastrointestinal Gastrointestinal: Denies abdominal pain, diarrhea, nausea or vomiting Genitourinary Genitourinary ED: Denies dysuria, hematuria or urinary frequency Musculoskeletal Musculoskeletal: Reports other Details: Laceration left long finger ; Denies arthralgias, back pain, myalgias or neck pain Integumentary Denies abscess, Abrasions or rash Neurologic Neurologic: Denies headache(s) or weakness Psychiatric Psychiatric: Denies anxiety, depression or suicidal thoughts Endocrine Endocrinology: Denies polydipsia, polyphagia or polyuria Hematologic/Lymphatic Hematologic/Lymphatic: Denies easy bleeding, easy bruising or lymphadenopathy Allergic/Immunologic Allergic/Immunologic ED: Denies mouth swelling, tongue swelling or urticaria EXAM Physical Exam Const Vital Signs: 12/02/21 16:25 Temperature 97.0 F L Temperature Source Temporal Pulse Rate 86 Respiratory Rate 16 Blood Pressure 126/102 H Blood Pressure Mean 110 Pulse Ox 97 Oxygen Delivery Method Room Air Positive well nourished and well developed General Appearance ED: well developed and NAD HEENT Reports TM's clear and moist mucous membranes normocephalic and atraumatic; Negative for trauma or tenderness Tympanic Membrane ED: Yes TM's clear Eyes PERRL and EOMs intact bilaterally General Eye ED: Negative for pale conjunctiva or scleral icterus Neck no lymphadenopathy, supple and no JVD General: Negative for tenderness Chest Wall inspection of chest normal and palpation of chest normal Chest: Negative for tenderness Resp normal respiratory effort and clear to auscultation bilaterally Effort and Inspection: Negative for respiratory distress or pain with movement Auscultation: Negative for rhonchi, wheezes or diminished lung sounds Cardio regular rate, regular rhythm, S1 normal heart sound, S2 normal heart sound and no murmurs Peripheral Pulses: pulses 2+ throughout GI normal to inspection, nondistended, normoactive bowel sounds, soft to palpation, non-tender, non-distended and no masses Back/Spine no CVA tenderness and no thoracic nor lumbar tenderness Extremity Extremity Narrative: Left long finger-patient has a 2 cm laceration over the volar pulp of the distal phalanx. No active bleeding currently. Neurovascularly intact. Normal strength in flexion extension of DIP and PIP joint. General Extremety ED: Negative for edema General Extremity: Negative for edema Neuro oriented x3, CN's II-XII intact bilaterally, no sensory deficits noted and gait normal Sensorium / Orientation: awake, alert, oriented to person, oriented to place and oriented to time Motor Exam: strength 5/5 throughout and strength abnormal Psych mental status grossly normal Skin no rashes or lesions noted and no wounds MDM MDM MDM Narrative Medical decision making narrative: Patient has a laceration to the left long finger and patient was given option of suture repair versus Steri-Strip repair. Patient opted for suture repair. Wound was sterilely draped and prepped and repaired please see procedure note. Patient Toller procedure well. Clean dressing was applied. Patient advised to follow-up with primary care physician cardiology nurse practitioner for no doc in 10 days for suture removal. Patient to return if increasing pain, redness, swelling, purulent drainage, or condition worsen anyway. Patient received Adacel booster. Procedures Lacerations Finger laceration: Length: 0.79 in Depth: Sub Q Shape: Linear Prep: Sterile Conditions and Shure-Clens Laceration repair: Digital block and Lidocaine Irrigated (ml): 50 Number of Sutures/Twain: 3 Suture Information: Ethilon, Simple and 5-0 Discharge Plan Triage Chief Complaint: Laceration ED Provider: Luz Pryor Dx/Rx/DC Orders Clinical Impression: Finger laceration Instructions: ED Laceration, Hand: All Closures Prescriptions: No Action NK amoxicillin-pot clavulanate [Augmentin] 875-125 mg tablet 1 tab PO BID 7 Days Qty: 14 0RF Primary Care Provider: Care Physician,No Primary Referrals: Matthew Slade MD [Med Staff - Active Staff] - 10 Day for suture removal Care Physician,No Primary [Primary Care Provider] - Disposition Disposition: Home, Self Care
[2021-12-02] MEDS: Lidocaine 1% (20 ml mdv) 20 ML Vial 6 ML INFILT (16:42)
[2021-12-02] MEDS: Diphth,Pertuss(Acell),Tet Vac 0.5 ML Vial IM (16:43)
[2021-12-02 17:30] VITALS: BP 139/90; PULSE 74; RESP 16; O2SAT 98
--- NOTE | 2021-12-02 17:42 | CM.ED ---
SW Note Referral Source: Case Find Referral Reason: No Primary Care Physician (PCP) SW reviewed chart and noted that patient has no PCP. SW provided patient with list of [facility] and [facility] Physician List for reference. SW also provided patient with self pay packet. No other issues or concerns voiced at this time. SW remains available for any additional needs. Plan: Provided patient with PCP information Sylwia ARVIZU
== END 2021-12-02 17:32 | disposition home or self-care (01) ==
PROVIDERS: Emergency Provider Emergency Medicine; Visit Provider Emergency Medicine
DX: S61.213A Laceration without foreign body of left middle finger without damage to nail, initial encounter (principal); F17.210 Nicotine dependence, cigarettes, uncomplicated; W26.0XXA Contact with knife, initial encounter; Z23 Encounter for immunization
CPT/HCPCS: 12001; 90471; 90715; 99283

== ENCOUNTER 2024-10-11 03:22 | Emergency (ER) | payer BC, SELFPAY ==
[2024-10-11 03:23] VITALS: BP 149/88; PULSE 73; RESP 16; TEMP 36.3; O2SAT 98; BMI 35.7
--- NOTE | 2024-10-11 03:50 | RAD_ITS ---
PROCEDURE: FOOT MIN 3 VIEWS 10/11/2024 REASON FOR EXAM: PAIN TECHNIQUE: FOOT MIN 3 VIEWS COMPARISON: No FINDINGS: No acute bone or soft tissue pathology. Os navicularis. Small plantar calcaneal spur. Mild overgrowth of the 1st metatarsal head. RAD/Foot min 3 Views IMPRESSION: No acute findings. [facility]
--- OUTSIDE RECORDS SUMMARY | 2024-10-11 03:54 | XMS RPT_ITS | CCD ---
Author Organization [place] [employer] [facility] Care Team Providers Care Box Finisher Name Role Phone Jorge VAN, Zacarias Vidales Unavailable Mihaela Hamilton Unavailable Unavailable Zacarias Patel Unavailable Zacarias Patel Unavailable Keegan VAN, Tiki Primary Care Provider [phone] PHYSICIAN, NONE Primary Care Physician Unavailab le Care Physician, No Primary Referring Unava ilable Care Physician, No Primary Primary Care Unava ilable Obie Reyes Attending Unavailable Obie Reyes Attending Unavailable Care Physician, No Primary Referring Unava ilable Care Physician, No Primary Primary Care Unava ilable Allergies Allergy Classification Reported Allergen(s) Allergy Type Date of Onset Reaction(s) Facility (5 sources) Bees Allergy to substance 06-03-2016 [facility] Work Phone: Medications Current Medications Medication Drug Class(es) Dates Sig (Normalized) Sig (Original) amoxicillin 875 mg / clavulanate 125 mg oral tablet (1 source) Penicillin-class Antibacterial Start: 10-06-2020 take 1 tablet by mouth twice daily Amoxicillin-Pot Clavulanate (Augmentin) 875-125 mg tablet Active 1 TABLET PO TWICE A DAY 14 October 06, 2020 12:00am naproxen 500 mg oral tablet (1 source) Nonsteroidal Anti-inflammatory Drug Start: 12-04-2022 End: 12-11-2022 naproxen 500 mg oral tablet Dose : 500 mg = 1 tab(s), Oral, BIDM, X 7 day(s), # 14 tab(s), 0 Refill(s), 12/11/22 2:24:00 PM EDT Start Date: 12/04/22 Stop Date: 12/11/22 Status: Ordered [place] (Nk) (1 source) Start: 10-06-2020 [place] (Nk) Active October 06, 2020 12:00am Completed/Discontinued Medications Medication Drug Class(es) Dates Sig (Normalized) Sig (Original) acetaminophen 325 mg / oxyCODONE hydrochloride 5 mg oral tablet (3 sources) Opioid Agonist Start: 10-02-2017 End: 10-11-2017 take 1 tablet by mouth four times daily as needed Oxycodone-Acetamino phen Discontinued 1 - 2 TABLET PO 4 TIMES DAILY NEEDED October 02, 2017 9:48am October 11, 2017 2:45pm Start: 08-14-2017 End: 08-22-2017 Oxycodone-Acetaminophen (Per cocet) 5-325 mg tablet Discontinued 0 PO 4 TIMES DAILY August 14, 2017 August 22, 2017 12:05am 5-10 mg PO 4X/DAY PRN Start: 07-05-2017 End: 10-02-2017 take 1 tablet by mouth once Oxycodone-Acetaminophen Discontinued 1 - 2 TABLET PO .4X/DAY 60 July 05, 2017 12:00am October 02, 2017 9:48am amoxicillin 500 mg oral tablet (5 sources) Penicillin-class Antibacterial Start: 06-03-2016 take 1 tablet by mouth twice daily Amoxicillin 500 mg tablet Take 1 tablet by mouth twice daily. 0 06/03/2016 Active Comment on above: Take 1 tablet by roberto th twice daily. 24 hr buPROPion hydrochloride 150 mg extended release oral tablet (5 sources) Aminoketone Start: 06-03-2016 take 1 tablet by mouth once daily buPROPion XL (WELLBUTRIN XL) 150 mg 24 hr tablet Take 1 tablet by mouth once daily. 30 tablet 3 06/03/2016 Active Comment on above: Take 1 tablet by roberto th once daily. cephalexin 500 mg oral capsule (1 source) Cephalosporin Antibacterial Start: 03-10-2019 End: 03-20-2019 take 500 mg by mouth every six hours Cephalexin Discontinued 500 MG PO EVERY 6 HOURS 40 March 10, 2019 1:00am March 20, 2019 1:08am diazePAM 5 mg oral tablet (2 sources) Benzodiazepine Start: 10-09-2017 End: 10-11-2017 take 5 mg by mouth four times daily as needed Diazepam Discontinued 5 MG PO 4 TIMES DAILY NEEDED October 09, 2017 12:00am October 11, 2017 2:45pm Start: 07-18-2017 End: 07-26-2017 take 1 tablet by mouth four times daily Diazepam (Valium) 5 mg tablet Discontinued 5 MG PO 4 TIMES DAILY July 18, 2017 12:00am July 26, 2017 12:06am doxycycline monohydrate 100 mg oral capsule (1 source) Tetracycline-class Drug Start: 12-13-2017 End: 01-24-2018 take 100 mg by mouth every twelve hours Doxycycline Monohydrate Discontinued 100 MG PO Q12H 42 December 13, 2017 12:00am January 24, 2018 12:09am gabapentin 300 mg oral capsule (1 source) Anti-epileptic Agent Start: 10-02-2017 End: 11-07-2017 take 300 mg by mouth three times daily Gabapentin Discontinued 300 MG PO THREE TIMES A DAY October 02, 2017 12:00am November 07, 2017 5:03pm HYDROmorphone hydrochloride 2 mg oral tablet (2 sources) Opioid Agonist Start: 08-04-2017 End: 08-12-2017 Hydromorphone (Dilaudid) 2 mg tablet Discontinued 0 PO 4 TIMES DAILY 50 August 04, 2017 August 12, 2017 12:07am 2-4 mg PO 4X/DAY PRN Start: 07-14-2017 End: 07-22-2017 Hydromorphone (Dilaudid) 2 m g tablet Discontinued 0 PO 4 TIMES DAILY 60 July 14, 2017 July 22, 2017 12:07am 2-4 mg PO 4X/DAY PRN ibuprofen (2 sources) Nonsteroidal Anti-inflammatory Drug IBUPROFEN CAPS as needed IBUPROFEN CAPS [phone] Mihaela Hamilton levoFLOXacin 500 mg oral tablet (1 source) Quinolone Antimicrobial Start : 10-09 End: 10-11 take 500 mg by mouth once daily Levofloxacin Discontinued 500 MG PO DAILY October 09, 2017 12:00am October 11, 2017 2:44pm methylPREDNISolone (5 sources) Corticosteroid Start : 06-03 methylPREDNISolone (MEDROL, JEET,) 4 mg Dose-Pack Follow dosing instructions, take with food. 1 Package 0 06/03/2016 Active Comment on above: Follow dosing instru ctions, take with food. metroNIDAZOLE 500 mg oral tablet (2 sources) Nitroimidazole Antimicrobial Start : 12-26 End: 01-05 take 1 tablet by mouth three times daily Metronidazole (Flagyl) 500 mg tablet Discontinued 500 MG PO THREE TIMES A DAY 30 December 26, 2017 12:00am January 05, 2018 12:08am Start: 10-09-2017 End: 10-11-2017 take 500 mg by mouth three times daily Metronidazole Discontinued 500 MG PO THREE TIMES A DAY October 09, 2017 12:00am October 11, 2017 2:44pm nystatin 100 unt/mg topical powder (1 source) Polyene Antifungal Start: 07-05-2017 End: 10-02-2017 Nystatin Discontinued 1 APPLIC TOPICAL TWICE A DAY 3 July 05, 2017 12:00am October 02, 2017 9:48am promethazine hydrochloride 25 mg oral tablet (1 source) Phenothiazine Start: 10-11-2017 End: 11-07-2017 take 25 mg by mouth four times daily as needed Promethazine Discontinued 25 MG PO 4 TIMES DAILY NEEDED October 11, 2017 2:42pm November 07, 2017 5:03pm vancomycin 1000 mg injection (2 sources) Glycopeptide Antibacterial Start: 10-11-2017 End: 12-27-2017 Vancomycin In Dextrose 5 % Discontinued 1000 MG IV Q12H October 11, 2017 12:00am December 27, 2017 1:52pm Start: 10-11-2017 End: 12-27-2017 take 10 mg intravenously every twelve hours Vancomycin Discontinued 750 MG IV Q12H 80 40 October 11, 2017 12:00am December 27, 2017 1:52pm ICD-10 - L98.492, L73.2, T86.828 Size of skin graft - 10 x 2 cm. Home Health to draw CBC, CMP, ESR, CRP, Vancomycin Trough qMonday. Pharmacy to dose. Please fax results to [facility] at [phone]. Problems Active Problems Problem Classification Problem Date Documented Da te Episodic/Chronic Administrative/social admission (1 source) Encounter for pre-employment examination; Translations: [Encounter for pre-employment examination] Onset: 06-06-2024 Episodic Chronic ulcer of skin (1 source) Chronic ulcer of skin; Translations: [Non-pressure chronic ulcer of skin of other sites with fat layer exposed] Chronic Complication of device; implant or graft (2 sources) Skin graft infection; Translations: [Skin graft (allograft) (autograft) infection] Episodic E Codes: Natural/environment (1 source) Cat bite - wound; Translations: [Bitten by cat, initial encounter] Episodic Inflammatory diseases of female pelvic organs (3 sources) Ulceration of vulva; Translations: [Ulceration of vulva] Episodic Nonmalignant breast conditions (5 sources) Mastodynia; Translations: [Mastodynia] Episodic Open wounds of extremities (1 source) Laceration of finger; Translations: [Laceration without foreign body of unspecified finger without damage to nail, initial encounter] Episodic Open wounds of head; neck; and trunk (2 sources) Open wound of vulva; Translations: [Unspecified open wound of vagina and vulva, initial encounter] Episodic Other connective tissue disease (1 source) Pain of right lower leg; Translations: [Pain in right lower leg] Onset: 12-04-2022 Episodic Other skin disorders (1 source) Vulval hidradenitis suppurativa; Translations: [Hidradenitis suppurativa] Episodic Other skin disorders (1 source) Hidradenitis suppurativa; Translations: [Hidradenitis suppurativa] Episodic Skin and subcutaneous tissue infections (1 source) Cellulitis of abdominal wall ; Translations: [Cellulitis of abdominal wall] Episodic Substance-related disorders (1 source) Smoker; Translations: [Nicotine dependence, unspecified, uncomplicated] Chronic Unclassified (1 source) Unknown / UNK(Unknown) Onset: 11-07-2017 Past or Other Problems Problem Classification Problem Date Documented Da te Episodic/Chronic Spondylosis; intervertebral disc disorders; other back problems (5 sources) Low back pain; Translations: [Low back pain without sciatica] Onset: 06-10-2016 06-10-2016 Episodic Unclassified (2 sources) Family history of alcoholism; Translations: [Family history of alcohol abuse and dependence] 02-22-2017 Episodic Unclassified (1 source) MRSA WOUND Onset: 11-07-2017 Results Test Name Value Interpretation Reference Range Facility Office Visit Reporton 2024 Office Visit Report [facility] [address] [place] [address] OFFICE VISIT Date of Service: 06/06/24 MR#: [id number] Acct: [id number] Patient: ИВАН DE LA VEGA DORIS Rep #: [id number] : 1975 Provider: AUSTYN Bhakta Age/Sex: 49/F Location: [facility] Status: Signed Intake Vital Signs 12/02/21 16:25 Height 5 ft 4 in Intake Visit 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 Chief Complaint: Preemployment physical Allergies No Known Allergies Allergy (Verified 12/02/21 16:24) [facility] Medical History (Updated 06/06/24 @ 11:15 by AUSTYN Olsen) Frequent headaches Anxiety Breast lump Back problem Multiple allergies Family History (System 11/24/20 @ 15:22 by Jerry Soliz) Mother Alcohol abuse Anxiety FHx: defects Breast cancer Aunt Cervical cancer Ovarian cancer Social History (System 11/24/20 @ 15:22 by Jerry Soliz) Smoking Status: Current every day smoker tobacco type: cigarettes alcohol intake: current substance use type: does not use HPI HPI Chief Complaint: Preemployment physical Details: ИВАН DE LA VEGA, is a 49 F who presents to the office today for preemployment physical. Please see corresponding scanned documents with today's date. Office Procedures Physical Exam Coding PE Coding Pre-employment PE: Yes Coding Level of Care Code No Charge Diagnoses Encounter for pre-employment health screening examination Z02.1 Assessment and Plan Assessment and Plan (1) Encounter for pre-employment health screening examination: Status: Acute 06/06/24 1116 Date Obie Flores Signature: Date (if applicable) CC: Normal [facility] CNCOon 08-13-2021 CNCO Letter Text Normal [facility] CNOVon 07-16-2021 CNOV Office Visit (GENSWS ) -------- ИВАН DE LA VEGA ([id number]) 1975 F Date Time Provider Department 07/16/21 9:20 AM VLADISLAV SOLANO During your visit today, we recorded the following information about you: Temperature Pulse Blood pressure Weight 97.2 degrees 88/minute 124/88 96.2 kg Height 1.626 m Jennifer MooneyGAYATRI 07/16/2021 9:27 AM Signed REVIEW OF SYSTEMS: General: The patient notes fatigue, denies weight loss, notes weight gain, notes feeling hot, and denies feelings of cold. Eyes: The patient denies glaucoma, denies eye injury/surgery, does not wear glasses or contacts. Ear/Nose/Throat: The patient denies allergies, denies hayfever, denies ear infections, and denies bloody noses. Cardiovascular: The patient denies chest pain, denies heart disease, denies high blood pressure,denies cardiac stent, denies prior heart attack, denies irregular heart beat, denies high cholesterol, denies poor circulation, denies heart failure, other cardiac issues, denies claudication, denies cold feet, denies peripheral arterial stent. Respiratory: The patient denies tuberculosis, notes pneumonia, denies frequent cough, denies pulmonary embolism, notes shortness of breath, and denies coughing up blood. Gastrointestinal: The patient denies difficulty swallowing, notes acid reflux, denies ulcers, notes vomiting, denies jaundice/hepatitis, denies gallbladder problems, denies black or tarry stools, denies hemorrhoids, denies bleeding from rectum, denies diverticulitis, denies constipation, notes diarrhea, denies loss of stool control, and denies hernias. Kidney/Bladder: The patient denies kidney stones, denies urine infections, and denies bloody urine. Skin: The patient denies a history of skin cancer, denies bleeding/changing moles, and denies a history of skin rash. Neurologic: The patient denies a history of epilepsy/convulsions, notes headaches, denies head/spinal injuries, and denies stroke/TIA. Psychiatric: The patient denies psychiatric medications, denies depression, and denies voices, denies substance abuse. Endocrine: The patient denies thyroid disorders, denies diabetes, and denies hormonal problems. Hematologic: The patient denies a history of bruising, denies bleeding, and denies anemia, denies blood clots. Infections: The patient denies a history of measles and mumps, denies rheumatic fever, and denies sexually transmitted diseases. Musculoskeletal: The patient notes back pain/injury, notes back problems, denies sciatica, denies knee/foot trouble, notes arthritis, or denies gout. When was patient's last Mammogram screening? 2021 Last Colonoscopy: none GAYATRI Pond III, MD 07/16/2021 9:52 AM Signed HISTORY AND PHYSICAL - BREAST COMPLAINT Ивна De La Vega 1975 REFERRING PHYSICIAN: Shobha You APRN.DAY CARE ATTENDANT CHIEF COMPLAINT: Abnormal mammogram (primary encounter diagnosis) Mastodynia HPI: The patient is a 46 year old female with a complaint of an abnormal mammogram. The patient had a mammogram with ultrasound on 07/07/2021 Which demonstrated an irregular architectural distortion in the left breast which was suspicious for malignancy. They did an ultrasound of the left breast lower outer quadrant: There is irregular architectural distortion with a spiculated margin in the left breast superior lateral quadrant middle depth. ?This correlates as palpated and to the area of reported pain. ?There are biopsy clips associated with the architectural distortion. The patient denies a history of breast masses. She does perform a self breast exam routinely. She notes no skin changes. She denies nipple discharge. She notes no axillary masses. She notes no family history of breast problems. She notes no significant breast trauma or breast difficulties in the past. The patient is being seen by me today at the request of Dr. You for my opinion and advice regarding Abnormal mammogram (primary encounter diagnosis) Mastodynia. PAST MEDICAL HISTORY Diagnosis Date - Anemia - COPD (chronic obstructive pulmonary disease) (HCC) - Gum disease - Hidradenitis suppurativa - Scoliosis PAST SURGICAL HISTORY Procedure Laterality Date - BX BREAST NEEDLE CORE W/O IMAGING GUIDANCE SPX 03/13/2007 left breast - HYSTERECTOMY HX - PAST SURGICAL HISTORY OF hidranitis surgery x 4 groin - STEREOTACTIC CORE BIOPSY 01/18/2007 left breast - TEETH COMPLETE removed teeth due to gum disease Current Outpatient Medications Medication Sig Dispense Refill - methylPREDNISolone (MEDROL, JEET,) 4 mg Dose-Pack Follow dosing instructions, take with food. (Patient not taking: Reported on 07/06/2021 ) 1 Package 0 - Amoxicillin 500 mg tablet Take 1 tablet by mouth twice daily. (Patient not taking: Reported on 07/06/2021 ) 0 - buPROPion XL (WELLBUTRIN XL) 150 mg 24 hr tablet Take 1 (more content not included)... Normal [facility] Mc 07-16-2021 INEZN Telephone ([facility]) -------- ИВАН DE LA VEGA ([id number]) 1975 F Date Time Provider Department 07/16/21 VLADISLAV SOLANO During your visit today, we recorded the following information about you: Jennifer Mooney LPN 07/16/2021 10:41 AM Signed Spoke to Zena with Dr Negron office, stated that they would review the US and mammogram and schedule the Stereotactic Left breast biopsy, and make an appointment to see patient after review results of biopsy. Zena states Dr Negron office would be contact the patient to set up biopsy and office visit. [phone] FYI Blanka Amor RN 07/16/2021 4:30 PM Signed Иван garcia. She states that you said you were referring her to Dr. Negron for the stereotactic breast biopsy, but she thought that you told her that she also needed to see a breast surgeon that specialized in breast pain? Can Dr. Negron also treat her for breast pain or does she need to see someone else? Please advise. MOHINDER Martins III, MD 07/21/2021 12:[address] Negron can treat her for her pain as well Kathy Sanders 07/21/2021 3:04 PM Signed Spoke with patient and informed of message below. Patient has an appointment with 08/05/2021. Denies any other need or concern at this time. Allergies As of Date: 07/16/2021 Noted Allergy Reaction BEES 06/03/2016 7 - Swelling Date Reviewed: 07/16/2021 Reviewed by: Jennifer Mooney LPN - Fully Assessed Reason for Visit: Appointment [[id number]] Cmt: Dr Almita Negron Prescriptions as of 07/21/2021 - methylPREDNISolone (MEDROL, JEET,) 4 mg Dose-Pack Follow dosing instructions, take with food. - Amoxicillin 500 mg tablet Take 1 tablet by mouth twice daily. - buPROPion XL (WELLBUTRIN XL) 150 mg 24 hr tablet Take 1 tablet by mouth once daily. Meds Comments as of 07/25/2013: No Rx, rotuitne otc or supplement July 25, 2013 Problem List As Of Date 07/16/2021 Noted Resolved Low back pain without sciatica [M54.50] 06/10/2016 Encounter Status:Closed by KATHY SANDERS on 07/21/21 Normal [facility] DIAGNOSTIC BILon 022 [facility] DIAGNOSTIC RAKEL * * *Final Report* * * DATE OF EXAM: Jul 07 2021 1:10PM [id number] [id number] - [facility] DIAGNOSTIC [facility] / PROCEDURE REASON: multiple diagnoses * * * * Physician Interpretation * * * * RESULT: #[id number] - [facility] #[id number] - [facility] US BREAST LTD LT BILATERAL DIGITAL DIAGNOSTIC MAMMOGRAM WITH CAD: 07/07/2021 HISTORY: Multiple Diagnoses /Palpable lump: Left breast. / SEE TECH NOTE /priors available for comparison Multiple Diagnoses. RESULT: TECHNIQUE: The study was acquired using full field digital technology and interpreted from soft copy. Current study was also evaluated with a Computer Aided Detection (CAD). Comparison is made to exams dated: 03/30/2016 mammogram - [facility] and 05/10/2016 mammogram - [facility]. The tissue of both breasts is heterogeneously dense. This may lower the sensitivity of mammography. There is irregular architectural distortion with a spiculated margin in the left breast superior lateral quadrant middle depth. This correlates as palpated and to the area of reported pain. There are biopsy clips associated with the architectural distortion. No other significant masses, calcifications, or other findings are seen in either breast. IMPRESSION: SUSPICIOUS FINDING - BIOPSY SHOULD BE CONSIDERED The irregular architectural distortion in the left breast is suspicious of malignancy. A stereotactic biopsy is recommended. LIMITED ULTRASOUND OF BOTH BREASTS: 07/07/2021 RESULT: Comparison is made to exams dated: 03/30/2016 mammogram - [facility] and 05/10/2016 mammogram [facility]. Color flow and real-time ultrasound of the right breast and color flow and real-time ultrasound of the left breast lower outer quadrant were performed. Vargas scale images of the real-time examination were reviewed. There is a 4 mm oval cyst in the left breast at 1 o'clock posterior depth. This correlates as an incidental finding. IMPRESSION: SUSPICIOUS FINDING - BIOPSY SHOULD BE CONSIDERED The 4 mm oval cyst in the left breast is suspicious of malignancy. A stereotactic biopsy is recommended. There is no abnormality seen in the left breast to correspond with the mammographic density. Ebony sandy/mahnaz:07/07/2021 14:01:59 Multiple national specialty organizations have released breast cancer screening guidelines for women at average risk for developing breast cancer - guidelines that are based on both evidence and opinion, yet differ on when to start and how often to screen for breast cancer. With representation from Breast Imaging, Internal Medicine, Women's Health, Family Medicine, and Medical/Surgical Oncology, the [facility] has carefully reviewed the data and reached the following consensus: 1) All women should engage in shared decision-making with their providers to decide when to start and how often to screen; 2) All women should have the opportunity to start screening mammography at age 40; 3) For women ages 45-55, we recommend annual screening mammograms; 4) For women ages 55 and over, we support both the transition from an annual to a biennial interval if this aligns more with patient's values and preferences, or continuation with annual screening; 5) All women should discuss with their providers when to stop screening mammograms. Painting Instructor(s): Tamia Ruggiero, [facility]; Veronica Martinez RT(R)(M), [facility] OVERALL STUDY BIRADS: 4 Suspicious finding - Biopsy should be considered Weatherization And Housing Inspector: Mahnaz Transcribe Date/Time: Jul 07 2021 12:54P Dictated by: EBONY SOTO MD This examination was interpreted and the report reviewed and electronically signed by: EBONY SOTO MD on Jul 07 2021 2:01PM EST [id number] Normal [facility] DIAGNOSTIC BILATon 07-07 [facility] US BREAST LTD LTon 07-07 ELISA US BREAST LTD LT * * *Final Report* * * DATE OF EXAM: Jul 07 2021 1:34PM WRU 0593 - ELISA US BREAST LTD LT / PROCEDURE REASON: multiple diagnoses * * * * Physician Interpretation * * * * #[id number] - [facility]AG[facility]STIC [facility]AK[facility] #[id number] - [facility] US BREAST LTD LT BILATERAL DIGITAL DIAGNOSTIC MAMMOGRAM WITH CAD: 07/07/2021 HISTORY: Multiple Diagnoses /Palpable lump: Left breast. / SEE TECH NOTE /priors available for comparison Multiple Diagnoses. RESULT: TECHNIQUE: The study was acquired using full field digital technology and interpreted from soft copy. Current study was also evaluated with a Computer Aided Detection (CAD). Comparison is made to exams dated: 03/30/2016 mammogram - [facility] and 05/10/2016 mammogram [facility]. The tissue of both breasts is heterogeneously dense. This may lower the sensitivity of mammography. There is irregular architectural distortion with a spiculated margin in the left breast superior lateral quadrant middle depth. This correlates as palpated and to the area of reported pain. There are biopsy clips associated with the architectural distortion. No other significant masses, calcifications, or other findings are seen in either breast. IMPRESSION: SUSPICIOUS FINDING - BIOPSY SHOULD BE CONSIDERED The irregular architectural distortion in the left breast is suspicious of malignancy. A stereotactic biopsy is recommended. LIMITED ULTRASOUND OF BOTH BREASTS: 07/07/2021 RESULT: Comparison is made to exams [facility]: [facility] [facility]. Color flow and real-time ultrasound of the right breast and color flow and real-time ultrasound of the left breast lower outer quadrant were performed. Vargas scale images of the real-time examination were reviewed. There is a 4 mm oval cyst in the left breast at 1 o'clock posterior depth. This correlates as an incidental finding. IMPRESSION: SUSPICIOUS FINDING - BIOPSY SHOULD BE CONSIDERED The 4 mm oval cyst in the left breast is suspicious of malignancy. A stereotactic biopsy is recommended. There is no abnormality seen in the left breast to correspond with the mammographic density. Ebony sandy/mahnaz:07/07/2021 14:01:59 Multiple national specialty organizations have released breast cancer screening guidelines for women at average risk for developing breast cancer - guidelines that are based on both evidence and opinion, yet differ on when to start and how often to screen for breast cancer. With representation from Breast Imaging, Internal Medicine, Women's Health, Family Medicine, and Medical/Surgical Oncology, the [facility] has carefully reviewed the data and reached the following consensus: 1) All women should engage in shared decision-making with their providers to decide when to start and how often to screen; 2) All women should have the opportunity to start screening mammography at age 40; 3) For women ages 45-55, we recommend annual screening mammograms; 4) For women ages 55 and over, we support both the transition from an annual to a biennial interval if this aligns more with patient's values and preferences, or continuation with annual screening; 5) All women should discuss with their providers when to stop screening mammograms. Painting Instructor(s): Tamia Ruggiero, [facility]; Veronica Martinez, RT(R)(M), [facility] OVERALL STUDY BIRADS: 4 Suspicious finding - Biopsy should be considered Weatherization And Housing Inspector: Mahnaz Transcribe Date/Time: Jul 07 2021 12:54P Dictated by : EBONY SOTO MD This examination was interpreted and the report reviewed and electronically signed by: EBONY SOTO MD on Jul 07 2021 2:01PM EST [id number] Normal [facility] US BREAST LTD LTon 2 [facility] CNOVon 07-06-2021 CNOV Office Visit (OBGYWM ) -------- ИВАН DE LA VEGA ([id number]) 1975 F Date Time Provider Department 07/06/21 1:30 PM SHOBHA YOU During your visit today, we recorded the following information about you: Blood pressure Weight 110/70 95 kg Shobha You APRN.DAY CARE ATTENDANT 07/06/2021 2:17 PM Signed BREAST LUMP HISTORY: This is a 46 year old female who presents with mastalgia bilaterally and L lump noted this week Tenderness: Yes Change in size: Unsure Any history breast mass No, just cysts Caffeine use Yes Last [id number] abnormal, biopsy was done on L side Any previous breast surgery No Any family history breast disease/ breast cancer Yes Biopsy in 2017 of 2 cysts on L breast. Family history of breast cancer. Had BRCA testing done. She has mentioned she has increased her caffeine intake significantly lately so she relates that to her tenderness. She also reports increase in stress level, due to her HS. OB History T4 L5 SAB0 IAB0 Ectopic0 Multiple0 Live Births0 Comment: menarche age 11; afb 17; complete hysterectomy with BSO age 31 for cysts PAST MEDICAL HISTORY Diagnosis Date - Anemia - COPD (chronic obstructive pulmonary disease) (HCC) - Gum disease - Hidradenitis suppurativa - Scoliosis PAST SURGICAL HISTORY Procedure Laterality Date - BX BREAST NEEDLE CORE W/O IMAGING GUIDANCE SPX 03/13/2007 left breast - HYSTERECTOMY HX - STEREOTACTIC CORE BIOPSY 01/18/2007 left breast - TEETH COMPLETE removed teeth due to gum disease FAMILY HISTORY Adopted: Yes Problem Relation Age of Onset - Breast Cancer Mother diagnosed in 30's and passed at age 49 - Breast Cancer Maternal Aunt x2 aunts. both passed prior to age 50 SOCIAL HISTORY Social History Tobacco Use - Smoking status: Current Every Day Smoker Packs/day: 1.00 Years: 20.00 Pack years: 20.00 Types: Cigarettes - Smokeless tobacco: Never Used Substance Use Topics - Alcohol use: Yes Comment: 1-3 times yearly - Drug use: No PAST SURGICAL HISTORY Procedure Laterality Date - BX BREAST NEEDLE CORE W/O IMAGING GUIDANCE SPX 03/13/2007 left breast - HYSTERECTOMY HX - STEREOTACTIC CORE BIOPSY 01/18/2007 left breast - TEETH COMPLETE removed teeth due to gum disease Current Outpatient Medications Medication Sig - methylPREDNISolone (MEDROL, JEET,) 4 mg Dose-Pack Follow dosing instructions, take with food. (Patient not taking: Reported on 07/06/2021 ) - Amoxicillin 500 mg tablet Take 1 tablet by mouth twice daily. (Patient not taking: Reported on 07/06/2021 ) - buPROPion XL (WELLBUTRIN XL) 150 mg 24 hr tablet Take 1 tablet by mouth once daily. (Patient not taking: Reported on 07/06/2021 ) No current facility-administered medications for this visit. Allergies As of Date: 07/06/2021 Allergen Noted Reaction BEES 06/03/2016 Swelling Fully Assessed 07/06/2021 EXAMINATION: There is no concerning cervical, supraclavicular, or axillary lymphadenopathy. She has bilateral fibrocystic changes. On the right are no dominant masses, skin changes or nipple discharge. On the left there is a breast cyst in the lower, outer location measuring about 1-2 cm, but no skin changes or nipple discharge. Bilateral breast pain noted. ASSESSMENT/PLAN: 1. Breast pain, left - ICD9: 611.71, ICD10: N64.4 (primary diagnosis) - ELISA DIAGNOSTIC BILAT - US BREAST LTD LT 2. Mass of lower outer quadrant of left breast - ICD9: 611.72, ICD10: N63.23 - ELISA DIAGNOSTIC BILAT - US BREAST LTD LT Complete breast ultrasound and mammogram. Return with worsening symptoms, or sooner with new concerns. Domi Adkins APRN student TEACHING PROVIDER (Physician/PA/DIRECTOR HEALTH) NOTE OF PERSONAL INVOLVEMENT IN CARE: I have personally seen and examined the patient and performed the medical decision-making components. I have reviewed the Advanced Practice Registered Nurse (DIRECTOR HEALTH) Student's documentation and verified the findings in the note as written. Any additions or changes are noted in bold/italics. Signature: Shobha Avelino Date: 07/06/2021 Time: 2:16 PM Medical Decision Making: Problems: Moderate: New problem with uncertain prognosis Data: Unique test(s) ordered: 2 Risk: Low: Low risk from testing/treatment Medical Decision Making Level: 3 - Low Referring Provider: SELF [200] Allergies As of Date: 07/06/2021 Noted Allergy Reaction BEES 06/03/2016 7 - Swelling Date Reviewed: 07/06/2021 Reviewed by: Tory Daniels LPN - Fully Assessed Reason for Visit: Breast Mass [284] Cmt: left breast, painful has noted x2 mos Primary Visit Diagnosis:Breast pain, left [N64.4] Other Visit Diagnosis:Mass of lower outer quadrant of left breast [N63.23] Order(s):[facility] DIAGNOSTIC BILAT [[id number]] Order #: [id number] FUTURE US BREAST LTD LT [[id number]] Order #: [id number] FUTURE Prescriptions as of 07/06/2021 - methyl (more content not included)... Normal [facility] Mc 07-05-2021 MOMO Telephone (OBGYWM) -------- ИВАН DE LA VEGA ([id number]) 1975 F Date Time Provider Department 07/05/21 JEAN PIERRE HEARN During your visit today, we recorded the following information about you: Marely Quan RN 07/05/2021 11:30 AM Signed Call center transferred call to nurse. New [facility] patient having left breast pain. Spoke with patient. Having pain in her left breast for some time. Feels lumps in her breast. Offered to schedule patient. No insurance coverage. Asking for cost of visit. Transferred to a Patient Drill Runner Helper. No appointment scheduled. Marely Gerber RN 07/05/2021 3:20 PM Signed Noticed patient was financially cleared. Called and scheduled for tomorrow. Oliva Gerber RN Allergies As of Date: 07/05/2021 Noted Allergy Reaction BEES 06/03/2016 7 - Swelling Date Reviewed: 06/03/2016 Reviewed by: Wilma Warren LPN - Fully Assessed Reason for Visit: Breast Problem [16] Prescriptions as of 07/05/2021 - methylPREDNISolone (MEDROL, JEET,) 4 mg Dose-Pack Follow dosing instructions, take with food. - Amoxicillin 500 mg tablet Take 1 tablet by mouth twice daily. - buPROPion XL (WELLBUTRIN XL) 150 mg 24 hr tablet Take 1 tablet by mouth once daily. Meds Comments as of 07/25/2013: No Rx, rotuitne otc or supplement July 25, 2013 Problem List As Of Date 07/05/2021 Noted Resolved Low back pain without sciatica [M54.50] 06/10/2016 Encounter Status:Closed by OLIVA GERBER RN on 07/05/21 Normal [facility] CBC W/DIFFon 11-14-2017 BASO ABS 0.00 K/CU MM Normal 0-0.2 [facility] [place] Comment on above: Performed By: #### L 550.83630, L520.66696, L500.12943, L500.50594 ####[facility] FGPDAMGFYZ5587 [place], [place] [address]Gv# [phone] Basophils/100 WBC Auto (Bld) 0.4 % Normal 0-2 [facility] [place] Comment on above: Performed By: #### L 550.24074, L520.83822, L500.54318, L500.48390 ####[facility] DHTWMVITJQ6596 [place], [place] [address]Aw# [phone] EOS ABS 0.20 K/CU MM Normal 0-0.5 [facility] [place] Comment on above: Performed By: #### L 550.87047, L520.34051, L500.66729, L500.93547 ####[address] [address]Gn# [phone] Eosinophils/100 WBC Auto (Bld) 2.6 % Normal 0-5 [facility] Comment on above: Performed By: #### L 550.78277, L520.78920, L500.94637, L500.28076 ####[place] [address]Ph# [phone] Erythrocyte distribution width Auto Ratio (RBC) 14.3 % Normal 11-14.5 [facility] Comment on above: Performed By: #### L 550.96313, L520.91667, L500.99801, L500.33167 ####[address] [address]Kt# [phone] Hematocrit Auto Volume Fraction (Bld) 39.3 % Normal 35.0-47.0 [facility] Comment on above: Performed By: #### L 550.92842, L520.68695, L500.58744, L500.41568 ####[facility] [id number] [place] [address]Ee# [phone] Hemoglobin mass conc (Bld) 12.1 g/dL Normal 11.5-15.5 [facility] Comment on above: Performed By: #### L 550.95409, L520.26539, L500.19511, L500.55396 ####[facility] [address]NQFCTGFM[address] [place], [place] [address]Ph# [phone] IMMATR GRAN ABS 0.00 K/CU MM Normal Less than 2 [facility] [place] Comment on above: Performed By: #### L 550.47158, L520.80511, L500.62576, L500.87958 ####[place] [address]Ph# [phone] IMMATURE GRAN % 0.1 % Normal Less than 2 [facility] [place] Comment on above: Performed By: #### L 550.34360, L520.43300, L500.64339, L500.47464 ####[address]# [phone] Lymphocytes Auto #/vol (Bld) 2.10 K/CU MM Normal 0.9-4.4 [facility] Comment on above: Performed By: #### L 550.66521, L520.50022, L500.08505, L500.18760 ####[place] [address]Ph# [phone] Lymphocytes/100 WBC Auto (Bld) 27.9 % Normal 20-40 [facility] Comment on above: Performed By: #### L 550.58104, L520.23119, L500.35469, L500.83858 ####[place] [address]Ph# [phone] MCHC Auto mass conc (RBC) 30.8 g/dL Low 32.0-36.0 [facility] Comment on above: Performed By: #### L 550.98520, L520.92469, L500.60021, L500.92470 ####[place] [address]Ph# [phone] MCV Auto Entitic volume (RBC) 90.8 fL Normal 80.0-99.0 [facility] Comment on above: Performed By: #### L 550.93179, L520.70972, L500.52753, L500.69677 ####[facility] DOTANTHIKR[address] [place], [place] [address]Fs# [phone] MONO ABS 0.50 K/CU MM Normal 0.1-1.1 [facility] [place] Comment on above: Performed By: #### L 550.36965, L520.88743, L500.57660, L500.59409 ####[place] [address]Ph# [phone] Monocytes/100 WBC Auto (Bld) 6.3 % Normal 2-10 [facility] Comment on above: Performed By: #### L 550.83961, L520.89791, L500.11637, L500.91351 ####[address] [address]Yt# [phone] NEUTROPHIL ABS 4.60 K/CU MM Normal 2.0-8.3 [facility] Comment on above: Performed By: #### L 550.13605, L520.67241, L500.20402, L500.92346 ####[address] [address]Iz# [phone] Neutrophils/100 WBC Auto (Bld) 62.7 % Normal 45-75 [facility] Comment on above: Performed By: #### L 550.01859, L520.32963, L500.76023, L500.34796 ####[facility] [address] [place] [address]Os# [phone] Nucleated RBC/100 WBC Ratio (Bld) 0.0 % Normal Less than 1 [facility] Comment on above: Performed By: #### L 550.68163, L520.87738, L500.71986, L500.96123 ####[facility] [address] [place] [address]Uv# [phone] Platelet mean volume Auto Entitic volume (Bld) 13.1 fL High 9.4-12.4 [facility] Comment on above: Performed By: #### L 550.29995, L520.04375, L500.17692, L500.96593 ####[facility] SEQXHJLYJA[address]170 [place], [place] [address]Es# [phone] Platelets Auto #/vol (Bld) 168 K/CU MM Normal 150-450 [facility] Comment on above: Performed By: #### L 550.89407, L520.52841, L500.52940, L500.59903 ####[facility] [address] [place] [address]Hd# [phone] RBC Auto #/vol (Bld) 4.33 M/CU MM Normal 3.90-5.30 [facility] Comment on above: Performed By: #### L 550.11009, L520.74852, L500.63894, L500.47271 ####[facility] [address] [place] [address]We# [phone] WBC Auto #/vol (Bld) 7.4 K/CU MM Normal 4.5-11.0 [facility] Comment on above: Performed By: #### L 550.03104, L520.30562, L500.79236, L500.15764 ####[facility] [id number] [place] [address]Dx# [phone] CMPon 11-14-2017 Albumin mass conc 3.7 g/dL Normal 3.2-5.0 [facility] Comment on above: Performed By: #### L 550.96863, L500.85682, L520.25811, L500.25599 ####[facility] [id number] [place] [address]Lk# [phone] Albumin/Globulin mass ratio 1.2 {ratio} Normal 0.8-2.0 [facility] Comment on above: Performed By: #### L 550.83707, L500.40748, L520.60679, L500.18501 ####[facility] ALELVEFHNC0616 [place], [place] [address]Pt# [phone] ALK PHOS 146 U/L High 45-117 [facility] Comment on above: Performed By: #### L 550.57528, L500.57216, L520.19558, L500.71522 ####[facility] GQKFALAKAX2608 [place], [place] [address]Tb# [phone] ALT enzyme act/vol 41 U/L Normal 13-61 [facility] Comment on above: Result Comment: RESU LTS MAY BE FALSELY DEPRESSED AFTER THE ADMINISTRATION OFSULFASALAZINE AND/OR SULFAPYRIDINE. Performed By: #### L 550.53942, L500.65963, L520.32196, L500.90977 ####[facility] ZQPTNGBDXW9126 [place], [place] [address]As# [phone] Anion gap 3 molar conc 8 mmol/L Normal 5-16 [facility] Comment on above: Performed By: #### L 550.72889, L500.43479, L520.20432, L500.09042 ####[facility] CUEBPVGNUO9830 [place], [place] [address]Ii# [phone] BILI TOTAL 0.2 MG/DL Normal 0.2-1.0 [facility] Comment on above: Performed By: #### L 550.08623, L500.02349, L520.67149, L500.37743 ####[facility] RUKKRVHDXA1856 [place], [place] [address]Kj# [phone] Calcium mass conc 8.7 mg/dL Normal 8.5-10.1 [facility] [place] Comment on above: Performed By: #### L 550.10119, L500.12283, L520.91252, L500.65238 ####[facility] NKLSZUSVSB5292 [place], [place] [address]Vo# [phone] Chloride molar conc 111 mmol/L High 98-107 [facility] Comment on above: Performed By: #### L 550.58740, L500.19588, L520.74675, L500.56583 ####[facility] STJEQUPPJW3422 [place], [place] [address]Th# [phone] CO2 molar conc 22 mmol/L Normal 21-32 [facility] [place] Comment on above: Performed By: #### L 550.33682, L500.62491, L520.59733, L500.26981 ####[facility] XVOIYREQHB4372 [place], [place] [address]By# [phone] Creatinine mass conc 0.864 mg/dL Normal 0.510-0.950 [facility] [place] Comment on above: Result Comment: Steph ents receiving either N-Acetylcysteine (NAC) orMetamizole prior to venipuncture, may have falsely depressedresults. Performed By: #### L 550.53372, L500.70457, L520.79398, L500.87554 ####[facility] IMZFQGUARJ1896 [place], [place] [address]Ix# [phone] Globulin Calculated mass conc (S) 3.1 g/dL Normal 2.2-4.2 [facility] Comment on above: Performed By: #### L 550.09533, L500.09057, L520.21470, L500.70077 ####[facility] YDTYXFPLHF5091 [place], [place] [address]Sh# [phone] Glucose mass conc 90 mg/dL Normal 70-100 [facility] [place] Comment on above: Result Comment: 70-1 00- Normal Fasting; 100-125 Impaired Fasting; greaterthan 126 on more than one result- Diabetes. ADA guidelines.Results may be falsely elevated after the administration ofSulfapyridine.Results may be falsely depressed after the administration ofSulfasalazine. Performed By: #### L 550.76233, L500.73165, L520.37781, L500.20463 ####[facility] MBYYSBGAWO3469 [place], [place] [address]Aj# [phone] Potassium molar conc 4.2 mmol/L Normal 3.5-5.1 [facility] Comment on above: Performed By: #### L 550.25986, L500.70478, L520.34568, L500.29610 ####[facility] WNQMLJKEHK6672 [place], [place] [address]Uu# [phone] Protein mass conc 6.8 g/dL Normal 6.0-8.5 [facility] Comment on above: Performed By: #### L 550.68722, L500.38018, L520.36940, L500.12579 ####[facility] YZBQPXZIZI3756 [place], [place] [address]Gb# [phone] SGOT (AST) 23 U/L Normal 8-34 [facility] Comment on above: Result Comment: RESU LTS MAY BE FALSELY DEPRESSED AFTER THE ADMINISTRATION OFSULFASALAZINE AND/OR SULFAPYRIDINE. Performed By: #### L 550.70287, L500.02652, L520.06792, L500.27177 ####[facility] RIMAPESLIS9599 [place], [place] [address]Gw# [phone] Sodium molar conc 141 mmol/L Normal 136-145 [facility] Comment on above: Performed By: #### L 550.38294, L500.10933, L520.85421, L500.29016 ####[facility] MFGGVBXMWM4336 [place], [place] [address]Dw# [phone] Urea nitrogen mass conc 10 mg/dL Normal 7-26 [facility] Comment on above: Performed By: #### L 550.04370, L500.20065, L520.64840, L500.70536 ####[facility] GTGBQRKZOZ9708 [place], [place] [address]Lq# [phone] Urea nitrogen/Creatinin e mass ratio 12 mg/mg Low 15-24 [facility] Comment on above: Performed By: #### L 550.28966, L500.48031, L520.50728, L500.65154 ####[facility] NWWBDEWZMU9029 [place], [place] [address]Ns# [phone] CRPon 11-14-2017 CRP mass conc 1.12 MG/DL High 0.00-0.32 [facility] Comment [facility] above: Performed By: #### L 550.11390, L500.56565, L520.52754, L500.03344 ####[facility] [address] [place] [address]Zz# [phone] GFR ESTon 11-14-2017 IF AMER Greater than 60 Normal [facility] [place] Comment on above: Performed By: #### L 550.57301, L500.32559, L520.98759, L500.78077 ####[facility] F[address]QKLWR[address] [place] [address]Zg# [phone] IF non-AFR AMER Greater than 60 Normal [facility] [place] Comment on above: Performed By: #### L 550.81715, L500.25141, L520.23616, L500.78086 ####[facility] [address] [place] [address]Hn# [phone] VANC TROUGHon 11-14-2017 VANC TROUGH 14.3 MCG/ML Low 15.0-20.0 [facility] Comment on above: Performed By: #### L 550.72160, L500.23479, L520.84789, L500.85420 ####[facility] [address] [place] [address]Wc# [phone] WSR/MODon 11-14-2017 WSR/MOD 11 MM/HR Normal 0-20 [facility] Comment on above: Performed By: #### L 550.78939, L520.42337, L500.43300, L500.41994 ####[facility] YSMSHSBBRD1936 [place], [place] [address]Cg# [phone] CBC W/DIFFon 11-07-2017 BASO ABS 0.00 K/CU MM Normal 0-0.2 [facility] Comment on above: Performed By: #### L 200.71434, L200.19713 ####[facility] DITMHUJLMI2034 [place], [place] [address]Zn# [phone] Basophils/100 WBC Auto (Bld) 0.4 % Normal 0-2 [facility] [place] Comment on above: Performed By: #### L 200.88469, L200.24906 ####[address] [address]Vr# [phone] EOS ABS 0.10 K/CU MM Normal 0-0.5 [facility] [place] Comment on above: Performed By: #### L 200.42232, L200.62204 ####[address] [address]Ja# [phone] Eosinophils/100 WBC Auto (Bld) 2.9 % Normal 0-5 [facility] Comment on above: Performed By: #### L 200.63555, L200.90759 ####[address] [address]Jc# [phone] Erythrocyte distribution width Auto Ratio (RBC) 14.0 % Normal 11-14.5 [facility] Comment on above: Performed By: #### L 200.80108, L200.46397 ####[address] [address]Bp# [phone] Hematocrit Auto Volume Fraction (Bld) 38.9 % Normal 35.0-47.0 [facility] Comment on above: Performed By: #### L 200.41751, L200.11312 ####[facility] [address]EX[address] [place] [address]Ar# [phone] Hemoglobin mass conc (Bld) 11.9 g/dL Normal 11.5-15.5 [facility] Comment on above: Performed By: #### L 200.05109, L200.24902 ####[facility] [address]UUVNMG[address] [place] [address]Zl# [phone] IMMATR GRAN ABS 0.00 K/CU MM Normal Less than 2 [facility] [place] Comment on above: Performed By: #### L 200.18894, L200.10642 ####[facility] [address]HFE[address] [place], [place] [address]Ph# [phone] IMMATURE GRAN % 0.0 % Normal Less than 2 [facility] [place] Comment on above: Performed By: #### L 200.65573, L200.05353 ####[facility] [address]VMVAXWCWJ[address] [place], [place] [address]Ph# [phone] Lymphocytes Auto #/vol (Bld) 1.70 K/CU MM Normal 0.9-4.4 [facility] Comment on above: Performed By: #### L 200.32821, L200.53576 ####[place] [address]34[address]Ph# [phone] Lymphocytes/100 WBC Auto (Bld) 34.7 % Normal 20-40 [facility] Comment on above: Performed By: #### L 200.72755, L200.32727 ####[facility] [address]XLLDYHD[address] [place], [place] [address]Ph# [phone] MCHC Auto mass conc (RBC) 30.6 g/dL Low 32.0-36.0 [facility] Comment on above: Performed By: #### L 200.41259, L200.88307 ####[facility] [id number] [place], [place] [address]Ph# [phone] MCV Auto Entitic volume (RBC) 89.6 fL Normal 80.0-99.0 [facility] Comment on above: Performed By: #### L 200.25561, L200.00549 ####[facility] [address]AMJVGVH[address] [place], [place] [address]Ph# [phone] MONO ABS 0.40 K/CU MM Normal 0.1-1.1 [facility] [place] Comment on above: Performed By: #### L 200.83332, L200.57771 ####[facility] CELDFKOVHK6897 [place], [place] [address]Bw# [phone] Monocytes/100 WBC Auto (Bld) 8.5 % Normal 2-10 [facility] Comment on above: Performed By: #### L 200.14797, L200.90909 ####[facility] NHLCYRLCPJ8880 [place], [place] [address]Fc# [phone] NEUTROPHIL ABS 2.60 K/CU MM Normal 2.0[facility]8.3 [facility] Comment [facility] above: Performed By: #### L 200.04311, L200.55130 ####[facility] UWDDQICMRU5584 [place], [place] [address]Mc# [phone] Neutrophils/100 WBC Auto (Bld) 53.5 % Normal 45-75 [facility] Comment on above: Performed By: #### L 200.74125, L2.74988 ####[facility] G[address] [place] [address]Ej# [phone] Nucleated RBC/100 WBC Ratio (Bld) 0.0 % Normal Less than 1 [facility] Comment on above: Performed By: #### L 200.88382, L200.45335 ####[facility] OENWSAFCXZ3251 [place], [place] [address]Wx# [phone] Platelet mean volume Auto Entitic volume (Bld) 12.4 fL Normal 9.4-12.4 [facility] Comment on above: Performed By: #### L 200.00299, L200.11755 ####[facility] [id number] [place] [address]Nl# [phone] Platelets Auto #/vol (Bld) 139 K/CU MM Low 150-450 [facility] Comment on above: Performed By: #### L 200.05251, L200.34834 ####[facility] PYGBDOGLFU2001 [place], [place] [address]Wl# [phone] RBC Auto #/vol (Bld) 4.34 M/CU MM Normal 3.90-5.30 [facility] Comment on above: Performed By: #### L 200.92724, L200.32918 ####[facility] [id number] [place], [place] [address]Er# [phone] WBC Auto #/vol (Bld) 4.8 K/CU MM Normal 4.5-11.0 [facility] Comment on above: Performed By: #### L 200.29603, L200.70704 ####[facility] [id number] [place], [place] [address]Bw# [phone] CMPon 11-07-2017 Albumin mass conc 3.4 g/dL Normal 3.2-5.0 [facility] Comment on above: Performed By: #### L 550.92276, L520.10895, L500.66671, L500.79508 ####[facility] [id number] [place], [place] [address]Ay# [phone] Albumin/Globulin mass ratio 1.0 {ratio} Normal 0.8-2.0 [facility] Comment on above: Performed By: #### L 550.87185, L520.63081, L500.99661, L500.34953 ####[facility] RQZCGISACK2611 [place], [place] [address]Lj# [phone] ALK PHOS 147 U/L High 45-117 [facility] Comment on above: Performed By: #### L 550.02335, L520.00976, L500.05954, L500.85391 ####[facility] VJHHHENIZH6158 [place], [place] [address]Qb# [phone] ALT enzyme act/vol 32 U/L Normal 13-61 [facility] Comment on above: Result Comment: RESU LTS MAY BE FALSELY DEPRESSED AFTER THE ADMINISTRATION OFSULFASALAZINE AND/OR SULFAPYRIDINE. Performed By: #### L 550.05295, L520.81650, L500.09333, L500.02154 ####[facility] NQSYYPGTZK8374 [place], [place] [address]Tb# [phone] Anion gap 3 molar conc 10 mmol/L Normal 5-16 [facility] Comment on above: Performed By: #### L 550.62968, L520.91856, L500.43018, L500.97710 ####[facility] DKJYDIFOBO8455 [place], [place] [address]Lm# [phone] BILI TOTAL 0.3 MG/DL Normal 0.2-1.0 [facility] Comment on above: Performed By: #### L 550.28875, L520.23858, L500.79168, L500.54820 ####[facility] VENNUEKYAM1023 [place], [place] [address]Ug# [phone] Calcium mass conc 8.5 mg/dL Normal 8.5-10.1 [facility] Comment on above: Performed By: #### L 550.34342, L520.00148, L500.12080, L500.80714 ####[facility] VSIDXJCWOB2875 [place], [place] [address]Ki# [phone] Chloride molar conc 110 mmol/L High 98-107 [facility] Comment on above: Performed By: #### L 550.26647, L520.80156, L500.29849, L500.47930 ####[facility] KSXTGATNID9417 [place], [place] [address]Pj# [phone] CO2 molar conc 21 mmol/L Normal 21-32 [facility] Comment on above: Performed By: #### L 550.75140, L520.83150, L500.43408, L500.31737 ####[facility] CVHPCSCEOC6827 [place], [place] [address]Bl# [phone] Creatinine mass conc 0.821 mg/dL Normal 0.510-0.950 [facility] Comment on above: Result Comment: Steph ents receiving either N-Acetylcysteine (NAC) orMetamizole prior to venipuncture, may have falsely depressedresults. Performed By: #### L 550.78522, L520.29135, L500.44210, L500.23650 ####[facility] LBIYNBAHKP5391 [place], [place] [address]Ih# [phone] Globulin Calculated mass conc (S) 3.2 g/dL Normal 2.2-4.2 [facility] Comment on above: Performed By: #### L 550.07705, L520.07476, L500.86509, L500.07264 ####[facility] LPTEKMLAMT4608 [place], [place] [address]Vg# [phone] Glucose mass conc 88 mg/dL Normal 70-100 [facility] Comment on above: Result Comment: 70-1 00- Normal Fasting; 100-125 Impaired Fasting; greaterthan 126 on more than one result- Diabetes. ADA guidelines.Results may be falsely elevated after the administration ofSulfapyridine.Results may be falsely depressed after the administration ofSulfasalazine. Performed By: #### L 550.23562, L520.15590, L500.23346, L500.56439 ####[facility] NBGXUSHXTO9772 [place], [place] [address]Sc# [phone] Potassium molar conc 3.9 mmol/L Normal 3.5-5.1 [facility] Comment on above: Performed By: #### L 550.52812, L520.03998, L500.65183, L500.92196 ####[facility] PCIWQVYVXR7626 [place], [place] [address]Qo# [phone] Protein mass conc 6.6 g/dL Normal 6.0-8.5 [facility] Comment on above: Performed By: #### L 550.35605, L520.49334, L500.92254, L500.21241 ####[facility] ENZJZWPNUJ2295 [place], [place] [address]Tc# [phone] SGOT (AST) 19 U/L Normal 8-34 [facility] Comment on above: Result Comment: RESU LTS MAY BE FALSELY DEPRESSED AFTER THE ADMINISTRATION OFSULFASALAZINE AND/OR SULFAPYRIDINE. Performed By: #### L 550.55975, L520.09634, L500.27763, L500.74230 ####[facility] WRMSCVGHZI0266 [place], [place] [address]Wg# [phone] Sodium molar conc 142 mmol/L Normal 136-145 [facility] Comment on above: Performed By: #### L 550.50659, L520.01627, L500.05861, L500.61889 ####[facility] QHDWCURJAX3022 [place], [place] [address]Pf# [phone] Urea nitrogen mass conc 13 mg/dL Normal 7-26 [facility] Comment on above: Performed By: #### L 550.91868, L520.53620, L500.66743, L500.07766 ####[facility] FZTAIRLRIZ0282 [place], [place] [address]Rv# [phone] Urea nitrogen/Creatinin e mass ratio 16 mg/mg Normal 15-24 [facility] Comment on above: Performed By: #### L 550.31985, L520.96071, L500.51223, L500.51524 ####[facility] JXWNZJMEOG0726 [place], [place] [address]Lp# [phone] CRPon 11-07-2017 CRP mass conc 0.70 MG/DL High 0.00-0.32 [facility] Comment on above: Performed By: #### L 550.57646, L520.98618, L500.37620, L500.68474 ####[facility] IAYBCEDWSP3312 [place], [place] [address]Ee# [phone] GFR ESTon 11-07-2017 IF AMER Greater than 60 Normal [facility] Comment on above: Performed By: #### L 550.20018, L520.59232, L500.50272, L500.24639 ####[facility] BKCVKWXNFQ8757 [place], [place] [address]Xi# [phone] IF non-AFR AMER Greater than 60 Normal [facility] Comment on above: Performed By: #### L 550.47119, L520.01028, L500.42587, L500.87707 ####[facility] UZWYZRPZMC3412 [place], [place] [address]Kf# [phone] VANC TROUGHon 11-07-2017 VANC TROUGH 14.1 MCG/ML Low 15.0-20.0 [facility] Comment on above: Performed By: #### L 550.50784, L520.68093, L500.99758, L500.93117 ####[facility] XAUIWIZXCT3729 [place], [place] [address]Cl# [phone] WSR/MODon 11-07-2017 WSR/MOD 14 MM/HR Normal 0-20 [facility] Comment on above: Performed By: #### L 200.75548, L200.90984 ####[facility] [id number] [place], [place] [address]Rr# [phone] Vital Signs Date Time Vital Sign Value Performing Clinician Facility 12-04-2022 14:17-0400 Blood Pressure Cuff Size GERRI RINALDI MD [facility] 12-04-2022 14:17-0400 Blood Pressure Location GERRI RINALDI MD [facility] 12-04-2022 14:17-0400 Blood Pressure Method GERRI RINALDI MD [facility] 12-04-2022 14:17-0400 Body temperature 98.06 [degF] GERRI RINALDI MD [facility] 12-04-2022 14:17-0400 Diastolic Blood Pressure Non-Invasive 81 1 GERRI RINALDI MD [facility] 12-04-2022 14:17-0400 Heart rate 77 /min GERRI RINALDI MD [facility] 12-04-2022 14:17-0400 Respiratory rate 18 /min GERRI RINALDI MD [facility] 12-04-2022 14:17-0400 Systolic Blood Pressure Non-Invasive 114 1 GERRI RINALDI MD [facility] 12-02-2021 17:30-0400 Diastolic blood pressure 90 mm[Hg] [facility] Work Phone: 12-02-2021 17:30-0400 Heart rate 74 /min [facility] Work Phone: 12-02-2021 17:30-0400 Respiratory rate 16 /min [facility] Work Phone: 12-02-2021 17:30-0400 SaO2% (BldA) [Mass fraction] 98 % [facility] Work Phone: 12-02-2021 17:30-0400 Systolic blood pressure 139 mm[Hg] [facility] Work Phone: 12-02-2021 16:25-0400 Body height 162.56 cm [facility] Work Phone: 12-02-2021 16:25-0400 Body mass index (BMI) [Ratio] 35.8 kg/m2 [facility] Work Phone: 12-02-2021 16:25-0400 Body temperature 97 [degF] [facility] Work Phone: 12-02-2021 16:25-0400 Body weight 94.6 kg [facility] Work Phone: Encounters Encounter Date Encounter Type Care Provider Facility Start: 06-06-2024 End: 06-06-2024 ambulatory Obie ZAMAN [place] [place] Start: 12-04-2022 End: 12-04-2022 Emergency department patient visit GERRI RINALDI MD [facility] Start: 12-02-2021 End: 12-02-2021 Emergency department patient visit [facility] Start: 07-19-2021 ambulatory Dayan Nails MD Work Phone: Mammography Comment on above: Breast Problem Start: 07-19-2021 Patient encounter procedure Dayan Nails MD Work Phone: [facility] Start: 07-16-2021 Telephone encounter Vladislav pierce MD Work Phone: General Surgery Comment on above: Appointment (Dr Narinder Negron) Start: 07-07-2021 End: 07-07-2021 Subsequent hospital visit by physician Diagnostic Mammo [facility] Wstr Mammogram Comment on above: Breast pain, left [N 64.4] Start: 07-05-2021 Telephone encounter Jean Pierre hutson MD Work Phone: OB/Gynecology Comment on above: Breast Problem Start: 11-14-2017 Patient encounter Zacarias Jorge Facil ity:[facility] Start: 11-07-2017 Patient encounter Zacarias Patel Facil ity:[facility] Procedures Date Procedure Procedure Detail Performing Clinician Start: 07-07-2021 Us breast uni real t [place] with image limited Shobha [place] DIRECTOR HEALTH.DAY CARE ATTENDANT Work Phone: Start: 07-07-2021 Diagnostic mammograp hy computer-aided detcj bi Shobha Avelino DIRECTOR HEALTH.DAY CARE ATTENDANT Work Phone: Start: 03-30-2016 Mammography Jean Pierre hutson MD Work Phone: Plan of Treatment Date Care Activity Detail Author Start: 11-25-2021 Influenza vaccination INFLUENZ A (Season Ended) [facility] Start: 06-06-2021 LIPID SCREEN LIPID SCREEN [facility] Start: 10-31-2020 DIABETES SCREEN DIABETES SCREEN [facility] Start: 2019 COLOGUARD (FIT-DNA) COLOGUARD (FIT-D NA) [facility] Start: 2019 Colonoscopy COLONOSCOPY [facility] Start: 2019 COLORECTAL CANCER SCREENING COLORECTAL CANCER SCREENING [facility] Start: [address] COLONOGRAPHY [facility] Start: 2019 FECAL OCCULT BLOOD FECAL OCCULT BLOO D [facility] Start: 2019 SIGMOIDOSCOPY SIGMOIDOSCOPY [facility] Start: 03-30-2017 Mammography MAMMOGRAM [facility] Start: 02-22-2017 End: 02-22-2017 Appointment Appointment [facility] Work Phone: Start: 1993 ONE PNEUMOVAX PRIOR TO AGE 65 ONE PNEUMOVAX PRIOR TO AGE 65 [facility] Start: 1993 Urine microalbumin profile DTAP,TDAP,TD (1 - Tdap) [facility] Start: 1992 HEPATITIS C SCREENING HEPATITIS C SC REENING [facility] Start: 1992 HIV SCREENING HIV SCREENING [facility] Start: 1986 Adult depression screening assessment DEPRESSION SCREENING [facility] Start: 1979 COVID-19 VACCINE (1) COVID-19 VACCIN E (1) [facility] End: 08-18-2022 Diagnostic mammography computer-aided detcj bi ELISA DIAGNOSTIC BILAT Radiology Routine Breast disorder 1 Occurrences starting 07/19/2021 until 08/18/2022 [facility] Work Phone: Comment on above: 1 Occurrences starti ng 07/19/2021 until 08/18/2022 Patient Education ED Laceration, Hand: All Closures [facility] Work Phone: Patient referral [facility] Work Phone: [facility] Immunizations Immunization Date Immunization Notes Care Provider Fa cility 12-02-2021 tetanus toxoid, redu navneet diphtheria toxoid, and acellular pertussis vaccine, adsorbed [facility] Work Phone: Payers Date Payer Category Payer Self-pay [id number] 2017 Unknown [id number] Medicaid MEDICAID [id number] Unknown COMMERCIAL OTHER [id number] Unknown COMMERCIAL OTHER 2 [id number] Unknown [id number] Unknown [id number] Social History Date Type Detail [facility] History of tobacco use Cigarette Smoker C [facility] Start: 06-03-2016 End: 07-16-2021 Alcohol intake Current drinker of alcohol (finding) [facility] Start: 1975 Sex Assigned At Not on file C [facility] Start: 06-25-2021 End: 07-16-2021 Exposure to SARS-CoV-2 (event) Not sure [facility] Start: 07-10-2021 End: 07-20-2021 Exposure to SARS-CoV-2 (event) Unable to assess [facility] Work Phone: Start: 12-02-2021 Tobacco smoking stat [facility] Unknown if ever smoked [facility] Work Phone: Start: 03-08-2019 Rare [facility] Work Phone: Start: 03-08-2019 None [facility] Work Phone: Start: 03-08-2019 Alone [facility] Work Phone: Start: 03-09-2019 Cigarettes [facility] Work Phone: Start: 1975 Sex Assigned At Female A [facility] Tobacco smoking status No Smokin g Status Entered [facility] Medical Equipment Procedure Code Equipment Code Equipment Origin al Text Equipment Identifier Dates MORRIS 3GRM HEMO STAT ABS FDA Start: 07-10-2018 MORRIS 3GRM HEMO STAT ABS FDA Start: 10-03-2017 Functional Status Date Assessment Result Facility 12-04-2022 Functional Status Independent [facility] americo [facility] Mental Status Date Assessment Result Facility 12-04-2022 Mental Status Orientation Oriented x 4 [facility] Clinical Notes 07-05-2021 to 12-04-2022 Telephone Encounter - Kathy Sanders - 07/21/2021 3:02 PM EDTTelephone Encounter - Vladislav Solano MD - 07/21/2021 12:35 PM EDTTelephone Encounter - Blanka Amor RN - 07/16/2021 4:28 PM EDT Note Date & Type Note Facility 12-04-2022 Hospital Discharge instructions Patient Education 12/04/2022 14:24:22 Self-Care for Strains and Sprains Self-Care for Strains and Sprains Most minor strains and sprains can be treated with self-care. Recovering from a strain or sprain may take 6 to 8 weeks. Your self-care goal is to reduce pain and immobilize the injury to speed healing. A sprain injures ligaments (tissue that connects bones to bones). A strain injures muscles or tendons (tissue that connects muscles to bones). Support the injured area Wrapping the injured area provides support for short, necessary activities. Be careful not to wrap the area too tightly. This could cut off the blood supply. Support a wrist, elbow, or shoulder with a sling. Wrap an ankle or knee with an elastic bandage. Tape a finger or toe to the one next to it. Use cold and heat Cold reduces swelling. Both cold and heat reduce pain. Heat should not be used in the initial treatment of the injury. When using cold or heat, always place a thin towel between the pack and your skin. Apply ice or a cold pack 10 to 15 minutes every hour you re awake for the first 2 days. After the swelling goes down, use cold or heat to control pain. Don t use heat late in the day, since it can cause swelling when you re not active. Rest and elevate Rest and elevation help your injury heal faster. Raise the injured area above your heart level. Keep the injured area from moving. Limit the use of the joint or limb. Use medicine Aspirin reduces pain and swelling. (Note: Don t give aspirin to a child 18 or younger unless prescribed by the doctor.) Non-steroidal anti-inflammatory medicines, such as ibuprofen, may reduce pain and swelling, as well. Ask your healthcare provider for advice. When to call your healthcare provider Call your healthcare provider if: The injured joint won t move, or bones make a grating sound when they move You can t put weight on the injured area, even after 24 hours The injured body part is cold, blue, tingling, or numb The joint or limb appears bent or crooked. Pain increases or doesn t improve in 4 days When pressing along the injured area, you notice a spot that is especially painful [id number] [employer].. [address] [place] [address], [place] [address]. All rights reserved. This information is not intended as a substitute for professional medical care. Always follow your healthcare professional's instructions. Follow Up Care 12/04/2022 14:10:01 With:SONIDO GOLDEN DO Address: [address] [place] [phone]- [phone] When:5 to 7 days [facility] 12-04-2022 Emergency department Discharge summary Discharge Instructions Thank you for allowing [facility] to assist you with your healthcare needs. The following is important discharge information regarding your hospital visit. Diagnosis from Today's Visit Pain in right leg What to Do Next Instructions from Your Care Team Discharge ED Outpatient Vascular Lab - Ordered -- Test Requested: vascular doppler r/o DVT, Lower extremity, Right, Test Reason: Pain, Mon-Fri 8am-4:30pm: Call [phone] at 7:30am to schedule a same day appointment for testing. Please be aware there may be a short wait time. Post Acute Orders No qualifying data available. You Need to Schedule the Following Appointments Follow Up with SONIDO GOLDEN DO When Within 5 to 7 days Where: [address] [place] [phone]- [phone] Allergies No active allergies Medications Please ask your primary doctor or pharmacist before taking any other medication not listed, including over the counter drugs, herbal medications, vitamins and or supplements as they may interact with your home medications. What How Much When Instructions Last Dose New naproxen (naproxen 500 mg oral tablet) 1 tab(s) by mouth Twice daily with meals Duration: 7 Days Printed Prescription Please take this list to your next doctor s visit. Bring all medications you take, including over the counter medications, herbals and other supplements with you to your doctor s visit. Patients and families are reminded to discard old lists and to update any records with all medication providers or retail pharmacies. Education Materials Self-Care for Strains and Sprains Most minor strains and sprains can be treated with self-care. Recovering from a strain or sprain may take 6 to 8 weeks. Your self-care goal is to reduce pain and immobilize the injury to speed healing. A sprain injures ligaments (tissue that connects bones to bones). A strain injures muscles or tendons (tissue that connects muscles to bones). Support the injured area Wrapping the injured area provides support for short, necessary activities. Be careful not to wrap the area too tightly. This could cut off the blood supply. Support a wrist, elbow, or shoulder with a sling. Wrap an ankle or knee with an elastic bandage. Tape a finger or toe to the one next to it. Use cold and heat Cold reduces swelling. Both cold and heat reduce pain. Heat should not be used in the initial treatment of the injury. When using cold or heat, always place a thin towel between the pack and your skin. Apply ice or a cold pack 10 to 15 minutes every hour you re awake for the first 2 days. After the swelling goes down, use cold or heat to control pain. Don t use heat late in the day, since it can cause swelling when you re not active. Rest and elevate Rest and elevation help your injury heal faster. Raise the injured area above your heart level. Keep the injured area from moving. Limit the use of the joint or limb. Use medicine Aspirin reduces pain and swelling. (Note: Don t give aspirin to a child 18 or younger unless prescribed by the doctor.) Non-steroidal anti-inflammatory medicines, such as ibuprofen, may reduce pain and swelling, as well. Ask your healthcare provider for advice. When to call your healthcare provider Call your healthcare provider if: The injured joint won t move, or bones make a grating sound when they move You can t put weight on the injured area, even after 24 hours The injured body part is cold, blue, tingling, or numb The joint or limb appears bent or crooked. Pain increases or doesn t improve in 4 days When pressing along the injured area, you notice a spot that is especially painful [phone] [employer].. [address] [place] [address], [place] [address]. All rights reserved. This information is not intended as a substitute for professional medical care. Always follow your healthcare professional's instructions. Additional Information VACCINATE! IT SAVES LIVES! Members of the community who have not yet received the COVID-19 vaccine and would like to receive it can visit one of [facility] vaccine clinics. There are many vaccine clinic locations within the [facility]. For locations and available times, please visit [email or web address].g [email or web address] It is important to note that some COVID mobile vaccine clinics are held outdoors and may be canceled in rainy or stormy conditions. To learn more about pediatric vaccinations (ages 5-11), we invite you to visit the [facility] webpage. [email or web address].[email or web address]/pa [email or web address]-Freque tmod-Urtof-[email or web address].html To learn more about the COVID-19 vaccine, we invite you to visit the CDC website for a list of frequently asked questions. https://www.cdc.gov/coronavirus/2 019-ncov/vaccines/faq.html [facility] Patient Portal Access Instructions: Stay connected with your healthcare team and access your personal medical information anytime with the [facility] Patient Portal. If you would like a full copy of your medical records please contact the [facility] Medical Records Department Monday through Monday between 8a.m. and 4:30p.m. Please follow the directions below to access the portal: 1.Access the email account you provided upon registration to the hospital.2.Look for an invitation email from [facility].3.Open the email and access the invitation link: Accept Invitation to [facility].Fill in the required vazquez to create your account. Sign into www.[email or web address] with your username and password that you created in the above steps to stay up to date. You can then view a summary of results, a summary of your visits, and the ability to download your summaries to your computer or send the information securely to a physician. Remember that your healthcare information is confidential, so carefully consider who you will allow to register on the [employer] Patient Portal for access to your information. You can also access the [employer] Patient Portal on the testhub. Simply click on Health Records under Health Data and then click on the [employer]ovo logo. HOW TO SAFELY DISPOSE OF PRESCRIPTION MEDICATIONS Please use one of the following methods to safely dispose of your unused medications. 1.Use a drug disposal kit: the drug disposal pouch allows you to safely discard your old and unused drugs. Ask your nurse to give you one when you are discharged.2.Visit a local take-back location: Many local pharmacies and police departments have programs that collect old and unwanted prescription drugs. Call your local pharmacy or go to http://Mediastream.[email or web address]/2O8Lb0w to find one close to you.3.Make use of household items: Use cat litter or old coffee grounds to dispose medications if other options are not available. Mix your drugs with these household products, seal them in an airtight container and throw it into the garbage. Call [facility] [place]: [phone] to be sure your drugs can be disposed of in this way. Some medicines may require a different approach.4.Never flush your medications down the toilet. IF YOU HAVE BEEN PRESCRIBED AN OPIOIDS FOR PAIN If you have been prescribed an opioid (such as hydrocodone, oxycodone or morphine), it is critical to understand the possible side effects and risks of opioid pain medications. Even when taken as directed, opioids can have several side effects including: Tolerance, meaning you might need to take more of a medication for the same pain relief. Nausea, vomiting and/or constipation. Sleepiness, dizziness, dry mouth, confusion, depression or itching. Physical dependence, meaning you have withdrawal symptoms when a medication is stopped ? this can develop within a few days. KNOW YOUR RESPONSIBILITIES It is important to know exactly how much and how often to take the opioid pain medications you are prescribed. Never take opioids in higher amounts or more often than prescribed. Do not combine opioids with alcohol or other drugs that cause drowsiness, such as benzodiazepines, also known as benzos, including diazepam and alprazolam, muscle relaxants or sleep aids. Never sell or share prescription opioids. This is illegal. Store opioids in a secure place and out of reach of others (including children, family, friends and visitors). The last page(s) of this document has been signed and retained as a CHART COPY Signatures Patient Education Materials Self-Care for Strains and Sprains Medication Leaflets My discharge plan and instructions have been reviewed and explained to me and I,ИВАН DE LA VEGA understand my current condition and have read and understand these discharge instructions. I have received a written copy of the plan/instructions. If I have questions, I am aware that I should contact my doctor. 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 Patient has an appointment with 08/05/2021. Denies any other need or concern at this time. Dr. Negron can treat her for her pain as well Иван garcia. She states that you said you were referring her to Dr. Negron for the stereotactic breast biopsy, but she thought that you told her that she also needed to see a breast surgeon that specialized in breast pain? Can Dr. Negron also treat her for breast pain or does she need to see someone else? Please advise. Blanka Amor RN Spoke to Zena with Dr Jamil stevens, stated that they would review the US and mammogram and schedule the Stereotactic Left breast biopsy, and make an appointment to see patient after review results of biopsy. Zena states Dr Negron office would be contact the patient to set up biopsy and office visit. [phone] FYI documented in this encounter [facility] 07-19-2021 Note HNO ID: [id number] Author: Dayan Nails MD Service: ? Author Type: Physician Type: Progress Notes Filed: 07/19/2021 5:44 PM Note Text: Summary: Breast imaging review Review of diagnostic mammogram and ultrasound dated 07/07/2021 with comparison to prior mammogram dated 03/30/2016. There is an irregular focal asymmetry/architectural distortion within the upper outer left breast. Ultrasound of this area was performed, without sonographic correlate for this finding. A 4 mm oval cyst is described at the 1:00 axis, posterior depth. A hypoechoic mass is also imaged at the 2:00 axis, 5 cm from the nipple, containing a biopsy clip. There is an additional area of possible architectural distortion within the upper inner left breast, for which additional evaluation is recommended. An oval asymmetry is also visualized in the lateral left breast on the cc view. There is also an oval asymmetry in the central right breast on the cc view. Bilateral diagnostic mammogram with tomosynthesis is recommended to evaluate these findings as well as the architectural distortion in the upper outer left breast described on the report from 07/07/2021. Impression: Bilateral diagnostic mammogram with tomosynthesis views is recommended for further evaluation of the multiple areas of architectural distortion in the left breast as well as bilateral oval asymmetries. [facility] 07-19-2021 History of Present illness Narrative Summary: Breast imaging review Review of diagnostic mammogram and ultrasound dated 07/07/2021 with comparison to prior mammogram dated 03/30/2016. There is an irregular focal asymmetry/architectural distortion within the upper outer left breast. Ultrasound of this area was performed, without sonographic correlate for this finding. A 4 mm oval cyst is described at the 1:00 axis, posterior depth. A hypoechoic mass is also imaged at the 2:00 axis, 5 cm from the nipple, containing a biopsy clip. There is an additional area of possible architectural distortion within the upper inner left breast, for which additional evaluation is recommended. An oval asymmetry is also visualized in the lateral left breast on the cc view. There is also an oval asymmetry in the central right breast on the cc view. Bilateral diagnostic mammogram with tomosynthesis is recommended to evaluate these findings as well as the architectural distortion in the upper outer left breast described on the report from 07/07/2021. Impression: Bilateral diagnostic mammogram with tomosynthesis views is recommended for further evaluation of the multiple areas of architectural distortion in the left breast as well as bilateral oval asymmetries. documented in this encounter [facility] 07-16-2021 Note HNO ID: [id number] Author: Vladislav Solano MD Service: ? Author Type: Physician Type: Progress Notes Filed: 07/16/2021 9:52 AM Note Text: HISTORY AND PHYSICAL - BREAST COMPLAINT Иван Vidales Tony 1975 REFERRING PHYSICIAN: Shobha You APRN.DAY CARE ATTENDANT CHIEF COMPLAINT: Abnormal mammogram (primary encounter diagnosis) Mastodynia HPI: The patient is a 46 year old female with a complaint of an abnormal mammogram. The patient had a mammogram with ultrasound on 07/07/2021 Which demonstrated an irregular architectural distortion in the left breast which was suspicious for malignancy. They did an ultrasound of the left breast lower outer quadrant: There is irregular architectural distortion with a spiculated margin in the left breast superior lateral quadrant middle depth. ?This correlates as palpated and to the area of reported pain. ?There are biopsy clips associated with the architectural distortion. The patient denies a history of breast masses. She does perform a self breast exam routinely. She notes no skin changes. She denies nipple discharge. She notes no axillary masses. She notes no family history of breast problems. She notes no significant breast trauma or breast difficulties in the past. The patient is being seen by me today at the request of Dr. You for my opinion and advice regarding Abnormal mammogram (primary encounter diagnosis) Mastodynia. PAST MEDICAL HISTORY Diagnosis Date - Anemia - COPD (chronic obstructive pulmonary disease) (HCC) - Gum disease - Hidradenitis suppurativa - Scoliosis PAST SURGICAL HISTORY Procedure Laterality Date - BX BREAST NEEDLE CORE W/O IMAGING GUIDANCE SPX 03/13/2007 left breast - HYSTERECTOMY HX - PAST SURGICAL HISTORY OF hidranitis surgery x 4 groin - STEREOTACTIC CORE BIOPSY 01/18/2007 left breast - TEETH COMPLETE removed teeth due to gum disease Current Outpatient Medications Medication Sig Dispense Refill - methylPREDNISolone (MEDROL, JEET,) 4 mg Dose-Pack Follow dosing instructions, take with food. (Patient not taking: Reported on 07/06/2021 ) 1 Package 0 - Amoxicillin 500 mg tablet Take 1 tablet by mouth twice daily. (Patient not taking: Reported on 07/06/2021 ) 0 - buPROPion XL (WELLBUTRIN XL) 150 mg 24 hr tablet Take 1 tablet by mouth once daily. (Patient not taking: Reported on 07/06/2021 ) 30 tablet 3 No current facility-administered medications for this visit. ALLERGIES: Bees PERSONAL HISTORY: Social History Tobacco Use - Smoking status: Current Every Day Smoker Packs/day: 1.00 Years: 20.00 Pack years: 20.00 Types: Cigarettes - Smokeless tobacco: Never Used Vaping Use - Vaping Use: Never used Substance Use Topics - Alcohol use: Yes Comment: 1-3 times yearly - Drug use: No FAMILY HISTORY: FAMILY HISTORY Adopted: Yes Problem Relation Age of Onset - Breast Cancer Mother diagnosed in 30's and passed at age 49 - Breast Cancer Maternal Aunt x2 aunts. both passed prior to age 50 REVIEW OF SYMPTOMS: The review of systems data was entered by the nurse and reviewed by me Nursing Notes: Jennifer Mooney LPN 07/16/2021 9:27 AM Signed REVIEW OF SYSTEMS: General: The patient notes fatigue, denies weight loss, notes weight gain, notes feeling hot, and denies feelings of cold. Eyes: The patient denies glaucoma, denies eye injury/surgery, does not wear glasses or contacts. Ear/Nose/Throat: The patient denies allergies, denies hayfever, denies ear infections, and denies bloody noses. Cardiovascular: The patient denies chest pain, denies heart disease, denies high blood pressure,denies cardiac stent, denies prior heart attack, denies irregular heart beat, denies high cholesterol, denies poor circulation, denies heart failure, other cardiac issues, denies claudication, denies cold feet, denies peripheral arterial stent. Respiratory: The patient denies tuberculosis, notes pneumonia, denies frequent cough, denies pulmonary embolism, notes shortness of breath, and denies coughing up blood. Gastrointestinal: The patient denies difficulty swallowing, notes acid reflux, denies ulcers, notes vomiting, denies jaundice/hepatitis, denies gallbladder problems, denies black or tarry stools, denies hemorrhoids, denies bleeding from rectum, denies diverticulitis, denies constipation, notes diarrhea, denies loss of stool control, and denies hernias. Kidney/Bladder: The patient denies kidney stones, denies urine infections, and denies bloody urine. Skin: The patient denies a history of skin cancer, denies bleeding/changing moles, and denies a history of skin rash. Neurologic: The patient denies a history of epilepsy/convulsions, notes headaches, denies head/spinal injuries, and denies stroke/TIA. Psychiatric: The patient denies psychiatric medications, denies depression, and denies voices, denies substance abuse. Endocrine: The patient denies thyroid disorders, denie (more content not included)... [facility] 07-07-2021 Note HNO ID: [id number] Author: RT Dick(R) Service: ? Author Type: Technologist Type: Progress Notes Filed: 07/07/2021 1:16 PM Note Text: Radiology Service Progress Note PATIENT NAME: Иван De La Vega DATE OF SERVICE: July 07, 2021 TIME: 12:52 PM PATIENT IDENTITY VERIFICATION COMPLETED USING TWO (2) IDENTIFIERS: Name and Date of confirmed by patient verbally. FALL SCREENING: Has the patient had 2 falls in the last year or 1 fall with injury or currently using an Ambulatory Assistive Device (Walker, Cane, Wheelchair, Crutches, etc.)? No PATIENT GENDER DATA: Female. status: : No status: NO. PATIENT RELEVANT IMPLANT DATA REVIEWED: Not Applicable RADIOLOGY DEPARTMENT: Mammography PERIPHERAL IV DATA: Not applicable SIGNED BY: RT Dick(R) July 07, 2021 12:52 PM [facility] 07-07-2021 History of Present illness Narrative Radiology Service Progress Note PATIENT NAME: Иван De La Vega DATE OF SERVICE: July 07, 2021 TIME: 12:52 PM PATIENT IDENTITY VERIFICATION COMPLETED USING TWO (2) IDENTIFIERS: Name and Date of confirmed by patient verbally. FALL SCREENING: Has the patient had 2 falls in the last year or 1 fall with injury or currently using an Ambulatory Assistive Device (Walker, Cane, Wheelchair, Crutches, etc.)? No PATIENT GENDER DATA: Female. status: : No status: NO. PATIENT RELEVANT IMPLANT DATA REVIEWED: Not Applicable RADIOLOGY DEPARTMENT: Mammography PERIPHERAL IV DATA: Not applicable SIGNED BY: RT Dick(Derrick) July 07, 2021 12:52 PM documented in this encounter [facility] 07-06-2021 Note HNO ID: [id number] Author: Shobha You APRN.DAY CARE ATTENDANT Service: ? Author Type: Nurse Practitioner Type: Progress Notes Filed: 07/06/2021 2:17 PM Note Text: BREAST LUMP HISTORY: This is a 46 year old female who presents with mastalgia bilaterally and L lump noted this week Tenderness: Yes Change in size: Unsure Any history breast mass No, just cysts Caffeine use Yes Last [id number] abnormal, biopsy was done on L side Any previous breast surgery No Any family history breast disease/ breast cancer Yes Biopsy in 2017 of 2 cysts on L breast. Family history of breast cancer. Had BRCA testing done. She has mentioned she has increased her caffeine intake significantly lately so she relates that to her tenderness. She also reports increase in stress level, due to her HS. OB History T4 L5 SAB0 IAB0 Ectopic0 Multiple0 Live Births0 Comment: menarche age 11; afb 17; complete hysterectomy with BSO age 31 for cysts PAST MEDICAL HISTORY Diagnosis Date - Anemia - COPD (chronic obstructive pulmonary disease) (HCC) - Gum disease - Hidradenitis suppurativa - Scoliosis PAST SURGICAL HISTORY Procedure Laterality Date - BX BREAST NEEDLE CORE W/O IMAGING GUIDANCE SPX 03/13/2007 left breast - HYSTERECTOMY HX - STEREOTACTIC CORE BIOPSY 01/18/2007 left breast - TEETH COMPLETE removed teeth due to gum disease FAMILY HISTORY Adopted: Yes Problem Relation Age of Onset - Breast Cancer Mother diagnosed in 30's and passed at age 49 - Breast Cancer Maternal Aunt x2 aunts. both passed prior to age 50 SOCIAL HISTORY Social History Tobacco Use - Smoking status: Current Every Day Smoker Packs/day: 1.00 Years: 20.00 Pack years: 20.00 Types: Cigarettes - Smokeless tobacco: Never Used Substance Use Topics - Alcohol use: Yes Comment: 1-3 times yearly - Drug use: No PAST SURGICAL HISTORY Procedure Laterality Date - BX BREAST NEEDLE CORE W/O IMAGING GUIDANCE SPX 03/13/2007 left breast - HYSTERECTOMY HX - STEREOTACTIC CORE BIOPSY 01/18/2007 left breast - TEETH COMPLETE removed teeth due to gum disease Current Outpatient Medications Medication Sig - methylPREDNISolone (MEDROL, JEET,) 4 mg Dose-Pack Follow dosing instructions, take with food. (Patient not taking: Reported on 07/06/2021 ) - Amoxicillin 500 mg tablet Take 1 tablet by mouth twice daily. (Patient not taking: Reported on 07/06/2021 ) - buPROPion XL (WELLBUTRIN XL) 150 mg 24 hr tablet Take 1 tablet by mouth once daily. (Patient not taking: Reported on 07/06/2021 ) No current facility-administered medications for this visit. Allergies As of Date: 07/06/2021 Allergen Noted Reaction BEES 06/03/2016 Swelling Fully Assessed 07/06/2021 EXAMINATION: There is no concerning cervical, supraclavicular, or axillary lymphadenopathy. She has bilateral fibrocystic changes. On the right are no dominant masses, skin changes or nipple discharge. On the left there is a breast cyst in the lower, outer location measuring about 1-2 cm, but no skin changes or nipple discharge. Bilateral breast pain noted. ASSESSMENT/PLAN: 1. Breast pain, left - ICD9: 611.71, ICD10: N64.4 (primary diagnosis) - [facility] DIAGNOSTIC BILAT - US BREAST LTD LT 2. Mass of lower outer quadrant of left breast - ICD9: 611.72, ICD10: N63.23 - [facility] DIAGNOSTIC BILAT - US BREAST LTD LT Complete breast ultrasound and mammogram. Return with worsening symptoms, or sooner with new concerns. Domi Adkins APRN student TEACHING PROVIDER (Physician/PA/DIRECTOR HEALTH) NOTE OF PERSONAL INVOLVEMENT IN CARE: I have personally seen and examined the patient and performed the medical decision-making components. I have reviewed the Advanced Practice Registered Nurse (DIRECTOR HEALTH) Student's documentation and verified the findings in the note as written. Any additions or changes are noted in bold/italics. Signature: Shobha [place] Date: 07/06/2021 Time: 2:16 PM Medical Decision Making: Problems: Moderate: New problem with uncertain prognosis Data: Unique test(s) ordered: 2 Risk: Low: Low risk from testing/treatment Medical Decision Making Level: 3 - Low [facility] 07-05-2021 Miscellaneous Notes Noticed patient was financially cleared. Called and scheduled for tomorrow. Oliva Gerber RN Call center transferred call to nurse. New [facility] patient having left breast pain. Spoke with patient. Having pain in her left breast for some time. Feels lumps in her breast. Offered to schedule patient. No insurance coverage. Asking for cost of visit. Transferred to a Patient Drill Runner Helper. No appointment scheduled. Marely Quan RN documented in this encounter [facility] Evaluation + Plan note No data available for this section [facility] Evaluation note Diagnosis Breast pain, left Mastodynia Mass of lower outer quadrant of left breast [facility] Breast pain, left Mastodynia Mass of lower outer quadrant of left breast [facility] Breast disorder- Primary Unspecified breast disorder [facility] [place] noteNo assessment information availableWCenterville Work Phone: Reason for referral (narrative)* Diagnostic Procedure Only (Routine) - Pending Review Specialty Diagnoses / Procedures Referred By Contac t Referred To Contact [facility] Diagnoses Breast pain, left Mass of lower outer quadrant of left breast Procedures ELISA DIAGNOSTIC BILAT DIAGNOSTIC MAMMOGRAPHY COMPUTER-AIDED DETCJ BI Shobha You APRN.DAY CARE ATTENDANT [address] [place] [address] [facility] [address] [place] [address] Referral ID Status Reason Start Date Expiration Date Visits Requested Visits Authorized [id number] Pending Review Auto-Generat ed Referral 07/06/2021 08/05/2022 1 1 [facility] for referral (narrative)* Diagnostic Procedure Only (Routine) - Pending Review Specialty Diagnoses / Procedures Referred By Contac t Referred To Contact [facility] Diagnoses Breast pain, left Mass of lower outer quadrant of left breast Procedures US BREAST LTD LT US BREAST UNI REAL TIME WITH IMAGE LIMITED Shobha You APRN.DAY CARE ATTENDANT [address] [place] [address] [facility] [address] [place] [address] Referral ID Status Reason Start Date Expiration Date Visits Requested Visits Authorized [id number] Pending Review Auto-Generat ed Referral 07/06/2021 08/05/2022 1 [facility] Diagnostic Procedure Only (Routine) - Pending Review Specialty Diagnoses / Procedures Referred By Contac t Referred To Contact [facility] Diagnoses Breast disorder Procedures ELISA DIAGNOSTIC BILAT DIAGNOSTIC MAMMOGRAPHY COMPUT[place] [address] [place] [address] [facility] [address] [place] [id number] Referral ID Status Reason Start Date Expiration Date Visits Requested Visits Authorized [id number] Pending Review Auto-Generat ed Referral 07/19/2021 08/18/2022 1 1 [facility] Summary Purpose Family History No Family History Records Found Relationship Condition Age at Onset Recorded Date/T milton mother Alcohol abuse Unknown Anxiety Unknown Family history of defect Unknown Malignant neoplasm of breast Unknown aunt Malignant neoplasm of cervix Unknown Malignant neoplasm of ovary Unknown Advance Directives No Advanced Directives Records Found Advance Directive Response Recorded Date/ Time Living Will No December 02, 022 4:29pm Power of Envelope Fold Operator No December 02, 2021 4:29pm Chief Complaint and Reason for Visit Chief Complaint LAC Additional Source Comments INFORMATION SOURCE (unrecogn ized section and content) DATE CREATED AUTHOR 12/28/2017 [facility] Kylee Leong DATE CREATED AUTHOR AUTHOR'S ORGANIZ ATION 08/15/2021 [facility] DATE CREATED AUTHOR AUTHOR'S ORGANIZ ATION 06/21/2024 [facility] Source Comments (unrecognize d section and content) In the event this informatio n is protected by the Federal Confidentiality of Alcohol and Drug Abuse Patient Records regulations: The Federal rules restrict any use of the information to criminally investigate or prosecute any alcohol or drug abuse patient.[facility] the event this information is protected by the Federal Confidentiality of Alcohol and Drug Abuse Patient Records regulations: The Federal rules restrict any use of the information to criminally investigate or prosecute any alcohol or drug abuse patient.[facility] the event this information is protected by the Federal Confidentiality of Alcohol and Drug Abuse Patient Records regulations: The Federal rules restrict any use of the information to criminally investigate or prosecute any alcohol or drug abuse patient.[facility] the event this information is protected by the Federal Confidentiality of Alcohol and Drug Abuse Patient Records regulations: The Federal rules restrict any use of the information to criminally investigate or prosecute any alcohol or drug abuse patient.[facility] the event this information is protected by the Federal Confidentiality of Alcohol and Drug Abuse Patient Records regulations: The Federal rules restrict any use of the information to criminally investigate or prosecute any alcohol or drug abuse patient.[facility] Reason for Visit (unrecogniz ed section and content) Reason Comments Breast Problem Specialty Diagnoses / Procedures Referred By Contjen t Referred To Contact DIVISION MANAGER / [facility] Department Diagnoses RIGHT BREAST PAIN Procedures NEW PATIENT Self Jean Pierre Hearn MD [address] [place] [address] Referral ID Status Reason Start Date Expiration Date Visits Requested Visits Authorized [id number] Authorized Patient Cleared - Qualified 100% FAS 07/05/2021 10/03/2021 99 99 Reason Comments Breast Problem Reason Comments Appointment Dr Almita Negron Care Teams (unrecognized sec tion and content) Box Finisher Relationship Specialty Start Date End Date Tiki Allison MD [address] [place] [address] PCP - General Internal Medicine 06/03/16 Box Finisher Relationship Specialty Start Date End Date Tiki Allison MD [address] [place] [address] PCP - General Internal Medicine 06/03/16 Box Finisher Relationship Specialty Start Date End Date Tiki Allison MD [address] [place] [address] PCP - General Internal Medicine 06/03/16 Box Finisher Relationship Specialty Start Date End Date Tiki Allison MD [address] [place] [address] PCP - General Internal Medicine 06/03/16 Goals (unrecognized section and content) Goals may be documented in a n alternate section No data available for this section FOR RECORDS PERTAINING TO PATIENTS WHO ARE OR HAVE BEEN ENROLLED IN A CHEMICAL DEPENDENCY/SUBSTANCEABUSE PROGRAM, SOME INFORMATION MAY BE OMITTED. This clinical summary was aggregated from multiple sources. Caution should be exercised in using it in the provision of clinical care. This summary normalizes information from multiple sources, and as a consequence, information in this document may materially change the coding, format and clinical context of patient data. In addition, data may be omitted in some cases. CLINICAL DECISIONS SHOULD BE BASED ON THE PRIMARY CLINICAL RECORDS. [facility], [facility]. provides no warranty or guarantee of the accuracy or completeness of information in this document.
--- NOTE | 2024-10-11 04:35 | EDS_ITS ---
HPI History of Present Illness Chief Complaint: Lower Extremity Injury Informant: patient Narrative Narrative: Patient is a 49-year-old female who states that for the last 4 months she has been working a job where she is on her feet constantly standing and moving for her entire shift. 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 She states there has been no recent trauma but she has noticed that when she is on her feet that after a few hours she is having increasing pain and swelling to the left foot that radiates towards the [place]. She states the pain is gradually worsening and tonight it was too severe to complete her job and therefore she comes to the ER for evaluation. [facility] Medical History (Updated 10/11/24 @ 04:[address] Deejay Lara, ) Frequent headaches Anxiety Breast lump Back problem Multiple allergies Home Medications ?Medication ?Instructions ?Recorded ?Last Taken ?Type NK 10/06/20 Unknown History amoxicillin 875 mg-potassium 1 tab PO BID 7 days #14 t abs 10/06/20 Unknown Rx clavulanate 125 mg tablet (Augmentin) gabapentin 100 mg capsule 100 mg PO TID 14 days #42 ca ps 10/11/24 Unknown Rx prednisone 20 mg tablet 40 mg (2 x 20 mg) PO DAILY 5 days 10/11/24 Unknown Rx #10 tabs Allergy/AdvReac Type Severity Reaction Status Date / Time No Known Allergies Allergy Verified 10/11/24 03:27 Family History (System 11/24/20 @ 15:22 by Jerry Soliz) Mother Alcohol abuse Anxiety FHx: defects Breast cancer Aunt Cervical cancer Ovarian cancer Social History (System 11/24/20 @ 15:22 by Jerry Soliz) Smoking Status: Current every day smoker tobacco type: cigarettes alcohol intake: current substance use type: does not use ROS ROS ED Constitutional Constitutional ED: Denies chills or fever(s) ENT ENT ED: Denies sore throat Cardiovascular Cardiovascular: Denies chest pain Respiratory/Chest Respiratory/Chest: Denies cough or dyspnea Gastrointestinal Gastrointestinal: Denies abdominal pain, diarrhea, nausea or vomiting Musculoskeletal Musculoskeletal: Reports other Details: Positive left foot/leg pain Integumentary Denies Abrasions Neurologic Neurologic: Reports paresthesias; Denies headache(s) Hematologic/Lymphatic Hematologic/Lymphatic: Denies easy bleeding or easy bruising EXAM Physical Exam Const Vital Signs: 10/11/24 03:23 Temperature 97.4 F L Temperature Source Temporal Pulse Rate 73 Respiratory Rate 16 Blood Pressure 149/88 H Blood Pressure Mean 108 Pulse Ox 98 Oxygen Delivery Method Room Air Positive well nourished and well developed General Appearance ED: well developed HEENT HEENT Narrative: Normocephalic atraumatic Eyes PERRL and EOMs intact bilaterally Neck supple Resp normal respiratory effort and clear to auscultation bilaterally Cardio regular rate and regular rhythm Extremity Extremity Narrative: Left lower extremity is neurovascularly intact. There is no obvious bony deformity or joint effusion. There is pain on palpation along the dorsal aspect of the left foot near the MTP joints. No signs of ligamentous or tendon injury. All compartments are soft and compressible going against compartment syndrome. No subungual hematoma noted. No overlying erythema or warmth to suggest infection and no abrasions or ecchymosis to suggest trauma. Neuro oriented x3, CN's II-XII intact bilaterally and no sensory deficits noted Sensorium / Orientation: alert Psych mental status grossly normal Skin no wounds MDM MDM MDM Narrative Medical decision making narrative: Patient arrived to the ER mildly hypertensive otherwise with stable vital. She reported increased pain to the left foot after performing a job where she is on her feet for multiple hours. She states there has been no direct trauma such as something falling on her foot or her striking an object. However today there is increased pain with weightbearing and ambulation. There is concern for inflammatory arthritis versus occult fracture versus dislocation versus secondary infection such as cellulitis or gout. The patient does not have any erythema or warmth going against secondary infection or gout. Physical exam does not show any findings of neurovascular compromise or compartment syndrome. X-ray does not reveal acute fracture or dislocation or retained foreign body. There are changes consistent with arthritis. The fact that the patient's pain is worse when she is on her feet and improves when she is off indicates she is most likely having increased pain from repetitive trauma worsening her arthritic inflammation. Therefore at this time should be placed on steroids and gabapentin to help control symptoms and will be advised to follow-up with podiatry as she may require special inserts injections or further testing to delineate the cause of her recurrent pain. History & Record Review Discussion w/independent historian: Patient Radiography Diagnostic Testing: Clinical Impression(s) from Imaging Studies Foot X-Ray 10/11/24 03:50 IMPRESSION: No acute findings. Reading Location: [place] [id number] X-ray of the left foot as interpreted by the emergency medicine physician reveals osteoarthritic changes without acute fracture or dislocation Discharge Plan Triage Chief Complaint: Lower Extremity Injury ED Provider: Deejay Lara Dx/Rx/DC Orders Clinical Impression: Osteoarthritis of left foot Instructions: Osteoarthritis: Coping with Pain Prescriptions: New prednisone 20 mg tablet 40 mg PO DAILY 5 Days Qty: 10 0RF gabapentin 100 mg capsule 100 mg PO TID 14 Days Qty: 42 0RF No Action NK amoxicillin-pot clavulanate [Augmentin] 875-125 mg tablet 1 tab PO BID 7 Days Qty: 14 0RF Stand Alone Forms: ED Work / School Excuse Primary Care Provider: Care Physician,No Primary Referrals: Vladislav Hall DPM [Med Staff - Active Staff] - (Left foot pain) Care Physician,No Primary [Primary Care Provider] - Activity Restrictions/Additional Instructions: Your x-ray shows mild arthritic changes without obvious fracture or bony erosion. Your history and exam along with x-ray indicate your pain is from prolonged standing on the feet leading to irritation from the arthritis. Take the prescribed medication from the ER as directed to help reduce symptoms. Follow-up with podiatry as you may need special inserts or injections to help control your symptoms. Return to the ER should you have any further concerns Print Language: Arabic Disposition Disposition: Home, Self Care
[2024-10-11 04:42] VITALS: BP 136/60; PULSE 75; RESP 18; TEMP 36.7; O2SAT 99
== END 2024-10-11 04:43 | disposition home or self-care (01) ==
PROVIDERS: Emergency Provider Emergency Medicine; Visit Provider Emergency Medicine
DX: M19.072 Primary osteoarthritis, left ankle and foot (principal); F17.210 Nicotine dependence, cigarettes, uncomplicated; R20.2 Paresthesia of skin
CPT/HCPCS: 73630; 99282

== ENCOUNTER 2024-11-07 10:07 | Emergency (ER) | payer BC, SELFPAY ==
[2024-11-07 10:09] VITALS: BP 136/107; PULSE 77; RESP 15; TEMP 35.8; O2SAT 100; BMI 35.3
--- NOTE | 2024-11-07 10:21 | VDLE_ITS ---
Reason For Study Reason For Study: Right leg pain RIGHT GSV is normal. CFV is compressible, spontaneous, phasic, competent and demonstrates normal augmentation. FV is compressible, spontaneous, phasic, competent and demonstrates normal augmentation. POP V is compressible, spontaneous, phasic, competent and demonstrates normal augmentation. T/P Trunk is compressible. PTV is compressible. RT PerV is compressible. Nonvascularized structure noted in the right popliteal fossa that measures1.45 x 2.39 x 2.53 cm. Procedure This is a venous duplex using B-mode, color flow and spectral Doppler. Exam performed portable in ED. A preliminary report was called and/or faxed to Dr. Saleem. VL/Venous Duplex US, Unilateral Interpretation Summary Deep veins of the right lower extremity are patent and compressible segmentally . There is no evidence of right lower extremity deep vein thrombosis. The right great saphenous vein appears patent a nd compressible segmentally. Nonvascularized structure noted in the right popliteal fossa that measures1.45 x 2.39 x 2.53 cm. Ordering Physician: Ricky Saleem Performed By: Francisca Washington RVT
--- NOTE | 2024-11-07 10:57 | EX.ED.DYSGE1 ---
HPI History of Present Illness Chief Complaint: Lower Extremity Injury Detail of Chief Complaint: Sent from urgent care to evaluate for DVT Informant: patient Onset/Context/Timing Onset: Weeks (Pain and swelling of the right knee continuous for the past 3 weeks. Intermittent starting 2 to 3 months ago) Context: Sudden Onset Timing: Continuous Quality: Right calf and posterior right knee Location: Right lower extremity popliteal fossa radiating down to the calf Current Severity: Mild Maximum Severity: Moderate Worsened by: Walking Relieved by: Nothing Associated Symptoms Associated Symptoms: No history of VTE. No chest pain, shortness of breath or difficulty breath Narrative Narrative: Patient is a 49-year-old woman. She has history of cellulitis in the past. She presents emergent care because of concern for DVT right lower extremity. Her history is remarkable for pain that started 2 to 3 months ago that was intermittent now crying consistent right knee pain with swelling. She locates the pain in the popliteal fossa proximal calf region. She denies chest pain, shortness of breath or difficulty breathing. She denies fever, chills night sweats. She has no history of VTE or any risk factors. There is no history of direct or indirect trauma. She has no known history of gout, pseudogout, osteoarthritis. She is never injured the right knee in the past. Prior similar symptoms: No Recent Illness/Hospitalization: No PFSH PFS Medical History Frequent headaches Anxiety Breast lump Back problem Multiple allergies Home Medications ?Medication ?Instructions ?Recorded ?Last Taken ?Type NK 10/06/20 Unknown History amoxicillin 875 mg-potassium 1 tab PO BID 7 days #14 tabs 10/06/20 Unknown Rx clavulanate 125 mg tablet (Augmentin) gabapentin 100 mg capsule 100 mg PO TID 14 days #42 caps 10/11/24 Unknown Rx prednisone 20 mg tablet 40 mg (2 x 20 mg) PO DAILY 5 days 10/11/24 Unknown Rx #10 tabs hydrocodone-acetaminophen 5-325mg 1 tab PO Q6H PRN PRN Pain 3 days 11/07/24 Unknown Rx 5mg-325mg #10 TABLETS naproxen 500 mg tablet 500 mg PO BID #14 tabs 11/07/24 Unknown Rx Allergy/AdvReac Type Severity Reaction Status Date / Time No Known Allergies Allergy Verified 11/07/24 10:11 Family History Mother Alcohol abuse Anxiety FHx: defects Breast cancer Aunt Cervical cancer Ovarian cancer Social History Smoking Status: Current every day smoker tobacco type: cigarettes alcohol intake: current substance use type: does not use ROS ROS ED Constitutional Constitutional ED: Denies chills, fever(s), subjective, sweats or weight loss Eyes Eyes: Denies blurry vision or change in vision ENT ENT ED: Denies ear pain or rhinorrhea Cardiovascular Cardiovascular: Denies chest pain, orthopnea, palpitations or paroxysmal nocturnal dyspnea Respiratory/Chest Respiratory/Chest: Denies cough, dyspnea, dyspnea on exertion, orthopnea or paroxysmal nocturnal dyspnea Musculoskeletal Musculoskeletal: Denies back pain or neck pain Integumentary Denies rash Psychiatric Psychiatric: Reports anxiety; Denies depression EXAM Physical Exam Const Vital Signs: 11/07/24 10:09 Temperature 96.5 F L Temperature Source Temporal Pulse Rate 77 Respiratory Rate 15 Blood Pressure 136/107 H Blood Pressure Mean 116 Pulse Ox 100 Oxygen Delivery Method Room Air Positive well nourished and well developed Constitutional Narrative: Patient appears in no distress. Vital signs reveal slight elevation of blood pressure. BMI is 35.4. General Appearance ED: well developed; Negative for pallor HEENT Reports moist mucous membranes HEENT Narrative: Has atraumatic normocephalic. Ears normal. Nares patent Eyes PERRL and EOMs intact bilaterally General Eye ED: Negative for pale conjunctiva or scleral icterus Neck no lymphadenopathy, supple and no JVD Resp normal respiratory effort and clear to auscultation bilaterally Cardio regular rate, regular rhythm, S1 normal heart sound, S2 normal heart sound and no murmurs Extremity Extremity Narrative: There is swelling of the right knee. The patella is not ballotable. There is no obvious effusion. There is no laxity varus valgus stress testing. She is able to extend the 180 degrees. She is able to flex to 100 degrees reports she started having discomfort. There is fullness in the popliteal fossa. Concerned she has a Reinoso's cyst. She also has tenderness of the calf along the distribution of the deep venous system. There may be slight leg vein distention. There is no discoloration or asymmetry i.e. difference greater than 3 cm. Patient has no evidence of PAD. She denies symptoms consistent with claudication. Neuro oriented x3 and CN's II-XII intact bilaterally Sensorium / Orientation: alert Psych mental status grossly normal Skin no rashes or lesions noted and no wounds General Skin Exam: Negative for jaundice or pallor MDM MDM MDM Narrative Medical decision making narrative: Differential diagnosis is Reinoso's cyst, DVT, ruptured muscle. Venous duplex study was ordered since she is moderate probability based on Wells score. The tech informing that she has a small Reinoso's cyst. There is no evidence of ruptured muscle or hematoma. There is no evidence of DVT. Patient was made aware of results. Since she has not seen an orthopedist will refer to Dr. Johnson who is on-call. Patient was concerned because her son is getting this weekend. I informed her I will prescribe pain medicine for her. Discharge Plan Triage Chief Complaint: Lower Extremity Injury ED Provider: Ricky Saleem Dx/Rx/DC Orders Clinical Impression: Synovial cyst of popliteal space [Reinoso], right knee, Elevated blood-pressure reading without diagnosis of hypertension, BMI 35.0-35.9,adult Instructions: ED Reinoso's Cyst Prescriptions: New hydrocodone-acetaminophen 5-325 mg tablet 1 tab PO Q6H PRN PRN (Reason: Pain) 3 Days Qty: 10 0RF naproxen 500 mg tablet 500 mg PO BID Qty: 14 0RF No Action NK amoxicillin-pot clavulanate [Augmentin] 875-125 mg tablet 1 tab PO BID 7 Days Qty: 14 0RF prednisone 20 mg tablet 40 mg PO DAILY 5 Days Qty: 10 0RF gabapentin 100 mg capsule 100 mg PO TID 14 Days Qty: 42 0RF Primary Care Provider: Care Physician,No Primary Referrals: David Johnson MD [Med Staff - Active Staff] - 1 Week if not improving Care Physician,No Primary [Primary Care Provider] - Print Language: Mozambican Disposition Disposition: Home, Self Care
[2024-11-07 11:40] VITALS: BP 136/107; PULSE 77; RESP 15; TEMP 35.8; O2SAT 100
== END 2024-11-07 11:41 | disposition home or self-care (01) ==
PROVIDERS: Emergency Provider Emergency Medicine; Visit Provider Emergency Medicine
DX: M71.21 Synovial cyst of popliteal space [Baker], right knee (principal); R03.0 Elevated blood-pressure reading, without diagnosis of hypertension; F17.210 Nicotine dependence, cigarettes, uncomplicated
CPT/HCPCS: 93971; 99282

== ENCOUNTER 2025-01-23 10:12 | Emergency (ER) | payer SELFPAY ==
[2025-01-23 10:13] VITALS: BP 149/93; PULSE 73; RESP 16; TEMP 36.6; O2SAT 99; BMI 36.9
--- NOTE | 2025-01-23 10:51 | EX.ED.DYSGE1 ---
HPI History of Present Illness Chief Complaint: Wound Check Narrative Narrative: Patient is a 49-year-old female with past medical history anxiety, frequent headaches who presents to the emergency department with a chief complaint of cut to the right hand. She states that on Monday a cup cut the back of her backhand and states that she just been watching this and notes that she had been placing Neosporin on this. She states that her tetanus shot was updated within the last year. States that she had some yellow drainage noted on the Band-Aid and her was concerned this could be infected therefore he advised her to come here to be further evaluated. Patient denies any fevers. She states that it was a large piece of plastic that cut her hand therefore has low suspicion for a foreign body. [facility] Medical History Frequent headaches Anxiety Breast lump Back problem Multiple allergies Home Medications ?Medication ?Instructions ?Recorded ?Last Taken ?Type amoxicillin 875 mg-potassium 1 tab PO BID 7 days #14 tabs 10/06/20 Unknown Rx clavulanate 125 mg tablet (Augmentin) gabapentin 100 mg capsule 100 mg PO TID 14 days #42 caps 10/11/24 Unknown Rx prednisone 20 mg tablet 40 mg (2 x 20 mg) PO DAILY 5 days 10/11/24 Unknown Rx #10 tabs hydrocodone-acetaminophen 5-325mg 1 tab PO Q6H PRN PRN Pain 3 days 11/07/24 Unknown Rx 5mg-325mg #10 TABLETS naproxen 500 mg tablet 500 mg PO BID #14 tabs 11/07/24 Unknown Rx doxycycline hyclate 100 mg capsule 100 mg PO BID #10 caps 01/23/25 Unknown Rx Allergy/AdvReac Type Severity Reaction Status Date / Time No Known Allergies Allergy Verified 01/23/25 10:17 Family History Mother Alcohol abuse Anxiety FHx: defects Breast cancer Aunt Cervical cancer Ovarian cancer Social History Smoking Status: Current every day smoker tobacco type: cigarettes alcohol intake: current substance use type: does not use ROS ROS ED ROS Narrative Constitutional: Denies any fevers or chills Neurological: Denies numbness, weakness, tingling Skin: Complains of cut to the dorsal aspect of her right thumb proximally EXAM Physical Exam Narrative Exam Narrative: General: Patient was lying in bed rest comfortably did not appear to be in acute distress Head: Atraumatic, normocephalic Eyes: PERRL bilaterally, EOMI bilaterally, no conjunctival injection noted Neck: Soft, supple, trachea midline Cardiovascular: Regular rate Musculoskeletal: Patient has full flexion extension of the right thumb no fusiform swelling noted Extremities: +5/5 strength noted in the bilateral lower extremities, radial pulses +2/4 in the right upper extremity Neurological: Patient following commands and that she was at [facility] sensation grossly intact in the median ulnar and radial nerve distributions bilaterally Skin: Patient has a complex skin tear on the dorsal aspect of her proximal right thumb no active purulent drainage noted no surrounding erythema noted Const Vital Signs: 01/23/25 10:13 Temperature 98 F Temperature Source Oral Pulse Rate 73 Respiratory Rate 16 Blood Pressure 149/93 H Blood Pressure Mean 111 Pulse Ox 99 Oxygen Delivery Method Room Air MDM MDM MDM Narrative Medical decision making narrative: Patient is a 49-year-old female who presented to the emergency department the chief complaint of cut to her right hand. On the differential diagnose includes but not limited to skin laceration, skin abrasion, cellulitis, abscess although have a low suspicion for these it appears to be more serosanguineous drainage. I discussed this with the patient and she is still concerned that there is a slight possibility infection and is requesting course of antibiotics which she will be given doxycycline. She was advised to keep a close eye on this and watch out for worsening signs of infection if this is to occur she should return to the emergency department. She was advised to follow-up with her doctor in outpatient setting tetanus shot is already up-to-date. All question concerns answered she was discharged home in stable condition Discharge Plan Triage Chief Complaint: Wound Check ED Provider: Og Romano Dx/Rx/DC Orders Clinical Impression: Laceration of right thumb, Encounter for medical screening examination Prescriptions: New doxycycline hyclate 100 mg capsule 100 mg PO BID Qty: 10 0RF No Action amoxicillin-pot clavulanate [Augmentin] 875-125 mg tablet 1 tab PO BID 7 Days Qty: 14 0RF prednisone 20 mg tablet 40 mg PO DAILY 5 Days Qty: 10 0RF gabapentin 100 mg capsule 100 mg PO TID 14 Days Qty: 42 0RF hydrocodone-acetaminophen 5-325 mg tablet 1 tab PO Q6H PRN PRN (Reason: Pain) 3 Days Qty: 10 0RF naproxen 500 mg tablet 500 mg PO BID Qty: 14 0RF Stand Alone Forms: ED Work / School Excuse Primary Care Provider: Care Physician,No Primary Referrals: Care Physician,No Primary [Primary Care Provider, Medical] Tamia Moraes, PUBLIC POLICY ANALYST-C [facility] Activity Restrictions/Additional Instructions: He if you do not have a primary care physician you can call the number above for a follow-up appointment. Keep a close eye on this if you start to develop surrounding redness or any other concerns return to the emergency department take antibiotics as prescribed. Print Language: Algerian Disposition Disposition: Home, Self Care
== END 2025-01-23 11:25 | disposition home or self-care (01) ==
PROVIDERS: Emergency Provider Emergency Medicine; Visit Provider Emergency Medicine
DX: S61.011A Laceration without foreign body of right thumb without damage to nail, initial encounter (principal); F41.9 Anxiety disorder, unspecified; R51.9 Headache, unspecified; F17.210 Nicotine dependence, cigarettes, uncomplicated; W26.8XXA Contact with other sharp object(s), not elsewhere classified, initial encounter
CPT/HCPCS: 99282